=== PATIENT | male | born 1935 | race Caucasian/White ===

== ENCOUNTER → 2019-12-19 16:27 | Outpatient (BNVA) | payer MEDICARE, BC, SELFPAY | PROVIDERS: Visit Provider Nurse Practitioner | DX: J02.9 Acute pharyngitis, unspecified (principal) | CPT/HCPCS: 87081; 87880 ==

== ENCOUNTER 2020-04-16 15:21 | Outpatient (CLI) | payer MEDICARE, BC, SELFPAY ==
--- NOTE | 2020-04-16 | USCV_ITS ---
Brianne Gallardo Age: 84 Gender: M : 1935 Exam Date: 04/16/2020 15:47 Ordering Phys: Robert Gerber MD Technologist: Axel Marinelli [place] [facility] [place]: MUR[place]UR BP: 147 / 82 HR: 41 Rhythm: Sinus Technical Quality: Fair MEASUREMENTS (Male / Female) Normal Values 2D ECHO LV Diastolic Diameter PLAX 4.0 cm 4.2 - 5.9 / 3.9 - 5.3 cm LV Systolic Diameter PLAX 3.0 cm IVS Diastolic Thickness 1.3 cm 0.6 - 1.0 / 0.6 - 0.9 cm IVS Systolic Thickness 1.2 cm LVPW Diastolic Thickness 1.3 cm 0.6 - 1.0 / 0.6 - 0.9 cm LVPW Systolic Thickness 1.3 cm LVOT Diameter 2.1 cm LV Ejection Fraction 2D Teich 49.2 % LV Ejection Fraction MOD 2C 68.0 % LV Ejection Fraction 2C AL 69.4 % LA Diameter 5.6 cm LA Width 4.2 cm LA Height 5.8 cm RA Width 5.1 cm RA Height 5.0 cm Aorta at Sinotubular Diameter 3.0 cm M-MODE LV Diastolic Diameter MM 4.7 cm 4.2 - 5.9 / 3.9 - 5.3 cm LV Systolic Diameter MM 3.3 cm LV Ejection Fraction MM Teich 56.4 % IVS Diastolic Thickness MM 0.9 cm 0.6 - 1.0 / 0.6 - 0.9 cm IVS Systolic Thickness MM 1.2 cm LVPW Diastolic Thickness MM 1.3 cm 0.6 - 1.0 / 0.6 - 0.9 cm LVPW Systolic Thickness MM 1.7 cm RV Diastolic Diameter MM 1.3 cm Aortic Annulus Diameter 4.4 cm LA Ao Ratio MM 1.3 MV E Point Septal Separation 1.1 cm DOPPLER AV Peak Velocity 174.0 cm/s LVOT Peak Velocity 77.0 cm/s AV Area Cont Eq vti 1.2 cm squared AV Area Cont Eq pk 1.5 cm squared MV Area PHT 5.1 cm squared Mitral E to A Ratio 1.6 MV E' Velocity 2.0 cm/s Mitral E to MV E' Ratio 21.3 Mitral E to LV E' Lateral Ratio 31.9 Mitral E to LV E' Septal Ratio 16.0 TR Peak Velocity 144.0 cm/s TR Peak Gradient 8.2 mmHg TV Peak E Velocity 104.0 cm/s Right Atrial Pressure 3.0 mmHg Pulmonary Artery Systolic Pressu 11.3 mmHg FINDINGS Left Ventricle Normal left ventricular cavity size. Mild left ventricular hypertrophy. Normal left ventricular systolic function. No regional wall motion abnormalities. Grade II/IV diastolic dysfunction, moderately elevated filling pressures. Left ventricular ejection fraction is estimated at 60 %. Right Ventricle Normal right ventricular size and systolic function. Normal right ventricular systolic pressure. Right Atrium Moderately increased right atrial size. Left Atrium Moderately increased left atrial size. Mitral Valve Structurally normal mitral valve. Mitral annular calcification. Mild mitral valve regurgitation. Aortic Valve Structurally normal trileaflet aortic valve. Mild aortic valve calcification. Mild aortic valve regurgitation. Mild aortic valve stenosis, mean gradient 4.6 mmHg, EVY 1.2 cm squared. Tricuspid Valve Structurally normal tricuspid valve. Trace tricuspid valve regurgitation. Pulmonic Valve Pulmonic valve not well visualized. [id number] pulmonary valve regurgitation. Pericardium Normal pericardium without effusion. Aorta Normal ascending aorta dimension. CONCLUSIONS Normal left ventricular cavity size. Mild left ventricular hypertrophy. Normal left ventricular systolic function. No regional wall motion abnormalities. Grade II/IV diastolic dysfunction, moderately elevated filling pressures. Left ventricular ejection fraction is estimated at 60 %. Moderately increased right atrial size. Moderately increased left atrial size. Structurally normal mitral valve. Mitral annular calcification. Mild mitral valve regurgitation. Structurally normal trileaflet aortic valve. Mild aortic valve calcification. Mild aortic valve regurgitation. Mild aortic valve stenosis, mean gradient 4.6 mmHg, EVY 1.2 cm squared. There are no prior echocardiogram studies to compare. Dr. Doug Woodard MD (Electronically Signed) Final Date: 17 April 2020 10:16 S
== END 2020-04-16 15:22 | disposition home or self-care (01) ==
PROVIDERS: Visit Provider Family Medicine
DX: R07.9 Chest pain, unspecified (principal); R01.1 Cardiac murmur, unspecified; I08.0 Rheumatic disorders of both mitral and aortic valves
CPT/HCPCS: 93306

== ENCOUNTER 2020-05-31 14:25 | Outpatient (CLI) | payer MEDICARE, BC, SELFPAY ==
--- NOTE | 2020-05-31 14:35 | XR_ITS ---
WS: [id number] CHEST 2 VIEWS HISTORY: FEVER, COUGH COMPARISON: None available. Lungs: Eventration of the LEFT hemidiaphragm. No pneumonia. LEFT lower lobe granuloma. Normal vascula ture. No pleural effusion or pneumothorax. Cardiac size: Normal. Mediastinum/Aorta: Mild atherosclerosis aorta. Bones: Osteopenia. XR/XR chest 2V* [id number] IMPRESSION: Ectatic thoracic aorta. No acute cardiopulmonary disease.
== END 2020-05-31 14:26 | disposition home or self-care (01) ==
LOC: RADWPI 14:30
PROVIDERS: PCP Family Medicine; Visit Provider Family Medicine
DX: R50.9 Fever, unspecified (principal); R05 Cough; I77.810 Thoracic aortic ectasia
CPT/HCPCS: 71046

== ENCOUNTER 2020-06-08 12:20 | Inpatient (IN) | payer MEDICARE, BC, SELFPAY ==
[2020-06-08] VITALS (24 sets, daily range): BP systolic 117–168; BP diastolic 64–90; PULSE 51–70; RESP 16–28; TEMP 37.1; O2SAT 79–100; BMI 29.5; BMI 29.7
--- NOTE | 2020-06-08 12:36 | W.ED.SOB ---
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 Pt states he was tested for covid last week and was told he was positive as [facility]. When we called to verify they had no record of the patient being there. He states he tabatha here for a doctors appointment. The patieints dropped him off at the Er and left. WE have not been able to contact her. She had told the staff at the entrance she had symptoms too. On arrival the pt had RA sat of 70s - improved to the mid 90s with o2 at 2 lpm. Pt reports antwan had a non-productive cough and mild diarrhea, no GI blood loss. cough had been non-productive. MD elicited complaint: shortness of breath and cough Onset (ago): day(s) Context: occurred during exertion Timing: constant Severity: moderate Exacerbating factors: exertion and coughing Relieving factors: oxygen and rest Associated symptoms: Reports chest congestion and cough; Deny abdominal pain, chest pain, diaphoresis, dizziness, extremity pain, fever(s), hemoptysis, lightheadedness, myalgias, nausea, orthopnea, palpitations, paresthesias, polydipsia, polyuria, rash, sense of impending doom, syncope, vomiting or other Treatment prior to arrival: none Review of Systems Const: Denies: fever(s) or diaphoresis ENMT: Denies: throat pain, ear or mastoid pain, nasal discharge or nasal congestion Card: Denies: chest pain, palpitations, lightheadedness, syncope or orthopnea Resp: Reports: chest congestion; Denies: hemoptysis GI: Denies: abdominal pain, nausea or vomiting : Denies: flank pain, dysuria, urinary frequency or urinary urgency Musc: Denies: extremity pain Skin/Breast: Denies: rash or pruritus Neuro: Denies: dizziness Endo: Denies: polyuria or polydipsia PFSH ED PFSH: Medical History Diastolic heart failure HLD (hyperlipidemia) HTN (hypertension) Prostate cancer Surgical History H/O hernia repair H/O lithotripsy H/O prostatectomy Family History Denies family history of CAD (coronary artery disease) Cancer Social History Quit status (tobacco): has quit using tobacco Year quit tobacco: 2019 Alcohol intake: never Substance/Drug Use: never Household members: spouse Housing: House Marital status: Physical Exam Const: COMMON NORMALS: no acute distress GENERAL APPEARANCE: cooperative and comfortable ORIENTATION/CONSCIOUSNESS: Yes awake, Yes oriented to person, Yes oriented to place and Yes oriented to time HENMT: COMMON NORMALS: normocephalic, atraumatic and hearing grossly normal bilaterally HEAD & SCALP: normocephalic and atraumatic Eye: COMMON NORMALS: Equal, round and reactive pupils present, EOMs intact bilaterally, conjunctivae normal and no scleral icterus CONJUNCTIVA: Yes conjunctivae normal PUPIL: Yes Equal, round and reactive pupils present Neck/C-Spine: COMMON NORMALS: full ROM, no lymphadenopathy, supple and no JVD Lymph: LYMPHATIC: no lymphadenopathy noted and no lymphedema noted Resp: AUSCULTATION: wheezes expiratory wheezes and throughout Cardio: COMMON NORMALS: no JVD, regular rate, regular rhythm and No murmurs present (Cardio) RATE: regular rate RHYTHM: regular rhythm GI: COMMON NORMALS: Soft to palpation and No hepatosplenomegaly present AUSCULTATION: Yes normoactive bowel sounds PALPATION: Yes Soft to palpation, No Tenderness to palpation present (GI), No Guarding due to palpation present (GI) and Yes No hepatosplenomegaly present Extremity: COMMON NORMALS: normal to inspection, capillary refill normal, no clubbing, cyanosis or edema, no calf tenderness and no pedal edema Neuro: SENSORIUM/ORIENTATION: Yes oriented to person, Yes oriented to place and Yes oriented to time Skin: COMMON NORMALS: no rashes or lesions noted GENERAL SKIN EXAM: no rashes or lesions noted Course Vital Signs: Vital signs: Vital Signs Temperature 98.5 F 06/10/20 04:00 Pulse Rate 62 06/10/20 06:00 Respiratory Rate 19 H 06/10/20 06:00 Blood Pressure 140/83 06/10/20 06:00 Pulse Oximetry 97 06/10/20 06:00 MDM - SOB/Dyspnea MDM Narrative: Medical decision making narrative: Discussed with Dr. Smart will admit to the viral ICU for oxygen support and monitoring. Lab Data: Labs: Lab Results 06/08/20 06/08/20 06/08/20 Range/Units 12:40 12:40 12:40 WBC 6.3 (4.0-10.0) 10^3/ uL RBC 4.44 (4.1-5.3) 10^6/u L Hgb 13.0 (11.7-16.6) g/dL Hct 39.4 L (42.0-52.0) % MCV 88.7 (80-94) fL MCH 29.3 (28.0-34.0) pg MCHC 33.0 (30.0-36.0) g/dL RDW 13.2 (12.1-15.1) % Plt Count 149 (130-400) 10^3/c mm MPV 11.0 H (7.4-10.4) fL Neut % (Auto) 58.5 % Lymph % (Auto) 29.0 % [place] % (Auto) 11.1 % Eos % (Auto) 0.8 % Baso % (Auto) 0.3 % Neut # (Auto) 3.69 (1.8-7.7) 10^3/u L Lymph # (Auto) 1.8 (0.8-4.8) 10^3/u L [place] # (Auto) 0.7 (0.2-0.9) 10^3/u L Eos # (Auto) 0.1 (0.0-0.8) 10^3/u L Baso # (Auto) 0.0 (0.0-0.1) 10^3/u L Nucleated RBC % (a uto) 0 % Nucleated RBCs # 0.0 /100WBC PT 12.60 (12.1-14.9) SECO NDS INR 0.92 (0.8-1.2) APTT 29.0 (23.9-36.7) SECO NDS Fibrinogen 582 H (174-498) mg/dL D-Dimer 1.14 H (0-0.59) ug/mIFE U Specimen Type Sample Site ABG pH (7.35-7.45) ABG pCO2 (35-45) mmHg ABG pO2 (80.0-100.0) mmH g ABG HCO3 (22-26) mmol/L ABG Base Excess (-2.0-2.0) mmol/ L Russell Test Hematocrit (42-52) % O2 Delivery Device O2 Liters/Min % FiO2 % Chief Engineering Division ID Sodium 139 (136-145) mmol/L Potassium 4.0 (3.5-5.1) mmol/L Chloride 102 (98-107) mmol/L Carbon Dioxide 22 (22-29) mmol/L Anion Gap 19.0 (5-19) BUN 16 (8-23) mg/dL Creatinine 0.8 (0.7-1.2) mg/dL GFR Calculation Not Reportable Glucose 105 (65-115) mg/dL Calculated Osmolal ity 285 (285-295) mOsm/k g Lactic Acid (0.5-2.2) mmol/L Calcium 8.4 L (8.5-10.5) mg/dL Magnesium 2.0 (1.7-2.3) mg/dL Total Bilirubin 0.4 (0.15-1.2) mg/dL AST 64 H (0-40) U/L ALT 80 H (0-41) U/L Alkaline Phosphata se 110 (40-130) IU/L Lactate Dehydrogen ase 276 H (135-225) U/L Creatine Kinase 58 (39-308) U/L C-Reactive Protein 66.5 H (0.0-4.9) mg/L NT-Pro-B Natriuret Pep (0-450) pg/mL Total Protein 7.0 (6.6-8.7) g/dL Albumin 4.0 (3.5-5.2) g/dL Globulin 3.0 (1.3-4.6) g/dL Procalcitonin 0.08 (0-0.5) ng/mL TSH (0.27-4.20) uIU/ mL Influenza Type A A g (Negative) Influenza Type B A g (Negative) 06/08/20 06/08/20 06/08/20 Range/Units 12:40 12:40 12:40 WBC (4.0-10.0) 10^3/ uL RBC (4.1-5.3) 10^6/u L Hgb (11.7-16.6) g/dL Hct (42.0-52.0) % MCV (80-94) fL MCH (28.0-34.0) pg MCHC (30.0-36.0) g/dL RDW (12.1-15.1) % Plt Count (130-400) 10^3/c mm MPV (7.4-10.4) fL Neut % (Auto) % Lymph % (Auto) % [place] % (Auto) % Eos % (Auto) % Baso % (Auto) % Neut # (Auto) (1.8-7.7) 10^3/u L Lymph # (Auto) (0.8-4.8) 10^3/u L [place] # (Auto) (0.2-0.9) 10^3/u L Eos # (Auto) (0.0-0.8) 10^3/u L Baso # (Auto) (0.0-0.1) 10^3/u L Nucleated RBC % (a uto) % Nucleated RBCs # /100WBC PT (12.1-14.9) SECO NDS INR (0.8-1.2) APTT (23.9-36.7) SECO NDS Fibrinogen (174-498) mg/dL D-Dimer (0-0.59) ug/mIFE U Specimen Type Sample Site ABG pH (7.35-7.45) ABG pCO2 (35-45) mmHg ABG pO2 (80.0-100.0) mmH g ABG HCO3 (22-26) mmol/L ABG Base Excess (-2.0-2.0) mmol/ L Russell Test Hematocrit (42-52) % O2 Delivery Device O2 Liters/Min % FiO2 % Chief Engineering Division ID Sodium (136-145) mmol/L Potassium (3.5-5.1) mmol/L Chloride (98-107) mmol/L Carbon Dioxide (22-29) mmol/L Anion Gap (5-19) BUN (8-23) mg/dL Creatinine (0.7-1.2) mg/dL GFR Calculation Glucose (65-115) mg/dL Calculated Osmolal ity (285-295) mOsm/k g Lactic Acid 0.9 (0.5-2.2) mmol/L Calcium (8.5-10.5) mg/dL Magnesium (1.7-2.3) mg/dL Total Bilirubin (0.15-1.2) mg/dL AST (0-40) U/L ALT (0-41) U/L Alkaline Phosphata se (40-130) IU/L Lactate Dehydrogen ase (135-225) U/L Creatine Kinase (39-308) U/L C-Reactive Protein (0.0-4.9) mg/L NT-Pro-B Natriuret Pep 764 H (0-450) pg/mL Total Protein (6.6-8.7) g/dL Albumin (3.5-5.2) g/dL Globulin (1.3-4.6) g/dL Procalcitonin (0-0.5) ng/mL TSH 1.37 (0.27-4.20) uIU/ mL Influenza Type A A g (Negative) Influenza Type B A g (Negative) 06/08/20 06/08/20 Range/Units 13:03 13:27 WBC (4.0-10.0) 10^3/ uL RBC (4.1-5.3) 10^6/u L Hgb (11.7-16.6) g/dL Hct (42.0-52.0) % MCV (80-94) fL MCH (28.0-34.0) pg MCHC (30.0-36.0) g/dL RDW (12.1-15.1) % Plt Count (130-400) 10^3/c mm MPV (7.4-10.4) fL Neut % (Auto) % Lymph % (Auto) % [place] % (Auto) % Eos % (Auto) % Baso % (Auto) % Neut # (Auto) (1.8-7.7) 10^3/u L Lymph # (Auto) (0.8-4.8) 10^3/u L [place] # (Auto) (0.2-0.9) 10^3/u L Eos # (Auto) (0.0-0.8) 10^3/u L Baso # (Auto) (0.0-0.1) 10^3/u L Nucleated RBC % (a uto) % Nucleated RBCs # /100WBC PT (12.1-14.9) SECO NDS INR (0.8-1.2) APTT (23.9-36.7) SECO NDS Fibrinogen (174-498) mg/dL D-Dimer (0-0.59) ug/mIFE U Specimen Type Arterial Sample Site Radial, left ABG pH 7.42 (7.35-7.45) ABG pCO2 38.7 (35-45) mmHg ABG pO2 93.8 (80.0-100.0) mmH g ABG HCO3 25.0 (22-26) mmol/L ABG Base Excess 0.6 (-2.0-2.0) mmol/ L Russell Test Pos Hematocrit 38.9 L (42-52) % O2 Delivery Device Nc O2 Liters/Min 1.0 % FiO2 24.0 % Chief Engineering Division ID Amh Sodium (136-145) mmol/L Potassium (3.5-5.1) mmol/L Chloride (98-107) mmol/L Carbon Dioxide (22-29) mmol/L Anion Gap (5-19) BUN (8-23) mg/dL Creatinine (0.7-1.2) mg/dL GFR Calculation Glucose (65-115) mg/dL Calculated Osmolal ity (285-295) mOsm/k g Lactic Acid (0.5-2.2) mmol/L Calcium (8.5-10.5) mg/dL Magnesium (1.7-2.3) mg/dL Total Bilirubin (0.15-1.2) mg/dL AST (0-40) U/L ALT (0-41) U/L Alkaline Phosphata se (40-130) IU/L Lactate Dehydrogen ase (135-225) U/L Creatine Kinase (39-308) U/L C-Reactive Protein (0.0-4.9) mg/L NT-Pro-B Natriuret Pep (0-450) pg/mL Total Protein (6.6-8.7) g/dL Albumin (3.5-5.2) g/dL Globulin (1.3-4.6) g/dL Procalcitonin (0-0.5) ng/mL TSH (0.27-4.20) uIU/ mL Influenza Type A A g Negative (Negative) Influenza Type B A g Negative (Negative) Discharge Plan Discharge Patient Disposition: Admitted As Inpatient Admit Provider: Adan Edmond Clinical Impression: Pneumonia due to COVID-19 virus, Acute respiratory failure with hypoxia, HTN (hypertension) Condition: Stable Interventions: ED Discharge Assessment Last Done: 06/08/20 14:42 ED Charges Last Done: 06/08/20 14:42 Discharge Date/Time: 06/08/20 14:42 Coding Level of Care Code ED Biology Manager for Ada Ponce
--- NOTE | 2020-06-08 12:50 | ECG_ITS ---
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 Measurements Intervals [place] Rate: 62 P: 3 OH: 156 QRS: -10 QRSD: 102 T: -9 QT: 415 QTc: 423 Interpretive Statements SINUS RHYTHM MODERATE VOLTAGE CRITERIA FOR LVH, CONSIDER NORMAL VARIANT [MEETS CRITERIA IN ONE OF: R(aVL), S(V1), R(V5), R(V5/V6)+S(V1)] NONSPECIFIC T-WAVE ABNORMALITY No previous ECG available for comparison Electronically Signed On 06-08-2020 20:39:02 CDT by Shawanda Bliar M.D. [email or web address]
--- NOTE | 2020-06-08 12:50 | XRR_ITS ---
PROCEDURE INFORMATION: Exam: XR Chest, 1 View Exam date and time: 06/08/2020 1:09 PM Age: 84 years old Clinical indication: Cough and dyspnea; Patient HX: Covid; Additional info: Dyspnea/cough TECHNIQUE: Imaging protocol: XR of the chest Views: 1 view. COMPARISON: CR XR chest 2V* [id number] 05/31/2020 2:39 PM FINDINGS: Lungs: Low lung volumes seen. The lungs are otherwise clear No consolidation. Pleural space: Unremarkable. No pleural effusion. No pneumothorax. Heart/Mediastinum: Unremarkable. No cardiomegaly. Bones/joints: Unremarkable. Other findings: Similar findings are seen comparing to prior examination. XR/XR chest 1V portable [id number] IMPRESSION: 1. No acute findings. 2. Low lung volumes
[2020-06-08 13:13] LABS: Basophils % 0.3 %; Eosinophils # 0.1 10^3/uL (0.0-0.8); Eosinophils % 0.8 %; Hematocrit 39.4 % (42.0-52.0); Lymphocytes # 1.8 10^3/uL (0.8-4.8); Mean Corpuscular Hemoglobin 29.3 pg (28.0-34.0); Mean Corpuscular Volume 88.7 fL (80-94); Monocytes # 0.7 10^3/uL (0.2-0.9); Monocytes % 11.1 %; Neutrophils # 3.69 10^3/uL (1.8-7.7); Neutrophils % 58.5 %; Nucleated Red Blood Cells % 0 %; Platelet Count 149 10^3/cmm (130-400); Red Blood Count 4.44 10^6/uL (4.1-5.3); Red Cell Distribution Width 13.2 % (12.1-15.1); White Blood Count 6.3 10^3/uL (4.0-10.0)
[2020-06-08 13:18] LABS: INR 0.92 (0.8-1.2)
[2020-06-08 13:19] LABS: Fibrinogen 582 mg/dL (174-498)
[2020-06-08 13:22] LABS: D Dimer 1.14 ug/mIFEU (0-0.59); Lactic Sepsis W/Reflex 0.9 mmol/L (0.5-2.2)
--- NOTE | 2020-06-08 13:28 | CT_ITS ---
WS: [id number] CT CHEST ANGIOGRAPHY WITH REFORMATS HISTORY: Dyspnea, covid TECHNIQUE: Contiguous axial images are obtained through the chest during arterial injection of intrav enous contrast. Images are reconstructed to evaluate the pulmonary arteries. MIP imaging also reviewe d. All CT scans at [facility] use at least one of these dose optimization techniques: aut omated exposure control; mA and/or kV adjustment per patient size (includes targeted exams where dose is matched to clinical indication); or iterative reconstruction. CONTRAST: Omnipaque 350; 95 mL IV. DLP: 564.13 mGy.cm COMPARISON: None available. No pulmonary embolism. Pulmonary artery size is. Atherosclerosis aorta. Moderate enlargement of the L EFT heart chambers. No pericardial or pleural effusion. Subpleural opacification along the posterior RIGHT upper and lower lobes. Slightly more than groundglass attenuation. No effusions. Indeterminate 13 mm subcarinal lymph node. Hypodensities in the liver are probably cysts. Cannot characterize these further due to their small s ize and phase of enhancement. No adrenal mass. LEFT extrarenal pelvis. No destructive bone lesions. CT/CT angio chest PE protcl [id number] IMPRESSION: 1. No pulmonary embolism. 2. Moderate LEFT heart enlargement. 3. Subpleural opacification in the posterior RIGHT upper and RIGHT lower lobes .
[2020-06-08 13:31] LABS: Procalcitonin 0.08 ng/mL (0-0.5)
[2020-06-08 13:39] LABS: ABG PCO2 38.7 mmHg (35-45); ABG PH Result 7.42 (7.35-7.45); Arterial Blood Gas Hematocrit 38.9 % (42-52); Base Excess ABG 0.6 mmol/L (-2.0-2.0); Blood Gas Allen Test Pos; Blood Gas Operator Identificat AMH; Blood Gas Sample Site Radial, left; Blood Gas Sample Type Arterial; Oxygen Device NC; PO2 ABG 93.8 mmHg (80.0-100.0)
[2020-06-08 13:43] LABS: Alanine Aminotransferase 80 U/L (0-41); Alkaline Phosphatase 110 IU/L (40-130); Aspartate Amino Transferase 64 U/L (0-40); Blood Urea Nitrogen 16 mg/dL (8-23); C Reactive Protein 66.5 mg/L (0.0-4.9); Calcium 8.4 mg/dL (8.5-10.5); Carbon Dioxide 22 mmol/L (22-29); Chloride 102 mmol/L (98-107); Creatine Phosphokinase 58 U/L (39-308); Glucose 105 mg/dL (65-115); Lactate Dehydrogenase 276 U/L (135-225); Osmolality Calculated 285 mOsm/kg (285-295); Sodium 139 mmol/L (136-145); Total Bilirubin 0.4 mg/dL (0.15-1.2)
[2020-06-08 14:00] LABS: Influenza A by IFA Negative (Negative); Influenza B by IFA Negative (Negative)
[2020-06-08] MEDS: dexamethasone 10 mg/mL INJ 6 MG IM (14:00)
[2020-06-08] MEDS: iohexol 350 mg/mL 100 mL Btl IV (14:32)
[2020-06-08 14:49] LABS: Thyroid Stimulating Hormone 1.37 uIU/mL (0.27-4.20)
--- NOTE | 2020-06-08 14:55 | P.HP_ITS ---
Providers/Chief Complaint Admitting Physician: Adan Edmond MD Primary Care Provider: Fabiano Woo MD Chief Complaint: covid positive History of Present Illness Brianne Gallardo is a 84 year old male, chronic smoker with past medical history of hypertension, hyperlipidemia, prostate cancer post prostatectomy who presented today from his PCPs office to the ER for extreme weakness. As per the history patient was tested for COVID-19 on May 31 which came back positive. Prior to May 31 patient has been having cough, shortness of breath, weakness, runny nose, flulike symptoms for 5 days for which he has been on Augmentin without any relief. His symptoms continue to worsen since then along with difficulty to get out of bed today for which he went to his primary care's office. Patient is also complaining of 2-3 episodes of diarrhea for last 2 days. Bowel movements are foul-smelling but not bloodstained black in color. He denies of having any chest pain, dizziness, palpitation, fall, dysuria, nausea, vomiting. States his appetite is okay. He also states his sense of smell and taste are intact at present. He lives with his who is not having any symptoms but is been tested for COVID-19 today. Review of Systems General: Reports: 10 or more systems reviewed and unremarkable except in HPI and below Const: Denies: fever(s), chills, body aches, change in appetite, change in weight, malaise, night sweats, diaphoresis, change in sleep pattern, daytime sleepiness or snoring Eyes: Denies: change in vision, blurry vision, photophobia, eye discomfort or eye discharge ENMT: Denies: throat pain, enlarged tonsils, hoarseness, mouth pain, oral sores, dry mouth, tinnitus, nasal congestion or post nasal drip Card: Denies: chest pain, palpitations, irregular heart rhythm, edema, swelling of feet/ankles, lightheadedness, syncope, pre-syncope, dyspnea on exertion, orthopnea, leg pain with exertion or acrocyanosis Resp: Denies: dyspnea, productive cough, non-productive cough, wheezing, stridor, pain on inspiration, change in phlegm color, hemoptysis or chest congestion GI: Denies: abdominal pain, nausea, vomiting, hematemesis, coffee ground emesis, dysphagia, heartburn, diarrhea, constipation, bloating, GI cramping, change in bowel habits, pain on defecation, hematochezia or melena : Denies: flank pain, difficulty urinating, dysuria, urinary frequency, uri nary urgency, urinary hesitancy, urinary dribbling, difficulty starting urination, change in urine stream, nocturia or hematuria Musc: Denies: neck pain, back pain, extremity pain, joint pain, joint swelling, joint redness, joint stiffness or limited range of motion Neuro: Denies: headache(s), numbness in extremities, weakness in extremities, sensory changes, lack of coordination, difficulty walking, frequent falls, dizziness, vertigo, confusion, Slurred speech present, difficulty communicating thoughts or seizure-like activity Psych: Denies: anxiety, depression, mood swings, panic attacks, hopelessness or irritability Endo: Denies: polyuria, polydipsia, tired all the time, cold intolerance, excessive sweating, flushing or heat intolerance Mohan/Lymph: Denies: easy bruising or easy bleeding All/Imm: Denies: tongue swelling, facial swelling or acute wheezing Medications/Allergies Home Medications Medication Instructions Recorded Confirmed Last Taken Type celecoxib 200 mg capsule 200 mg PO BID 12/19/19 06/08/20 Unknown History hydrocodone 5 mg-acetaminophen 325 1 tab PO Q4H PRN 12/19/19 06/08/20 Unknown History mg tablet lovastatin 40 mg tablet 40 mg PO DAILY 12/19/19 06/08/20 Unknown History metoprolol tartrate 50 mg tablet See Rx Instructions PO BID tab 12/19/19 Unknown History primidone 50 mg PO BID 12/19/19 06/08/20 Unknown History Allergies Allergy/AdvReac Type Severity Reaction Status Date / Time No Known Allergies Allergy Verified 06/08/20 12:43 PFSH Acute PFSH: Medical History (Updated 06/08/20 @ 15:09 by Adan Edmond MD) HLD (hyperlipidemia) HTN (hypertension) Prostate cancer Surgical History (Updated 06/08/20 @ 15:00 by Adan Edmond MD) H/O hernia repair H/O lithotripsy H/O prostatectomy Family History (Updated 06/08/20 @ 15:07 by Adan Edmond MD) Denies family history of CAD (coronary artery disease) Cancer Social History (Updated 06/08/20 @ 15:08 by Adan Edmond MD) Quit status (tobacco): has quit using tobacco Year quit tobacco: 2019 Alcohol intake: never Substance/Drug Use: never Household members: spouse Housing: House Marital status: Vitals/I&O/Wt Last Vital Signs Temp 98.8 F 06/08/20 12:35 Pulse 62 06/08/20 14:42 Resp 20 H 06/08/20 14:42 BP 162/89 06/08/20 14:42 Pulse Ox 100 06/08/20 14:42 Weight last 48 hrs Weight 88.904 kg Weight 87.997 kg Physical Exam Narrative: EXAM NARRATIVE: General: No acute distress, AO x3 HEENT: PERRLA, pupils bilaterally equal and reactive Chest: Normal vesicular breath sounds, no added sounds, equal good air entry bilaterally CVS: S1-S2 regular, no murmurs, no tachycardia, no gallops, no rubs Abdomen: Soft, nontender, no organomegaly, bowel sounds present Neuro: No focal deficits, no facial deformity, AO x3, power 5/5 in all limbs Data : 06/08/20 12:40 06/08/20 12:40 Micro: Microbiology 06/08/20 12:40 Blood Culture - Preliminary Blood SPECIMEN COLLECTED 06/08/20 12:35 Blood Culture - Preliminary Blood SPECIMEN COLLECTED A&P Assessment and plan (1) Pneumonia due to COVID-19 virus: Status: Acute (2) HLD (hyperlipidemia): Status: Acute (3) HTN (hypertension): Status: Acute (4) Diarrhea: Status: Acute (5) Acute respiratory failure with hypoxia: Status: Acute Additional A&P Information COVID-19 pneumonia: At present patient is requiring 3 L nasal cannula supplementation to keep saturation over 90%. Patient having at least moderate COVID-19 pneumonia. Start patient on dexamethasone 6 mg IV daily. Start patient on Remdesevir for 5 days. We will start patient on Advair, Spiriva. Start patient on zinc, vitamin C. Patient's d-dimer is elevated so will start on Eliquis 5 mg twice daily. Check CTA PE protocol to determine for how long Eliquis will be required. We will continue to monitor inflammatory markers daily including CRP, ferritin, LDH, d-dimer. Check procalcitonin, sputum culture, blood cultures, lactate. For now we will start patient on levofloxacin 500 mg oral daily. Tessalon Perles as needed. Daily EKGs to check for QTC. Hypertension: Goal blood pressure less than 140/90 mmHg. Continue with home dose of metoprolol. We will look for bradycardia. Diarrhea: Check enteric panel in 3 days. Patient has been on Augmentin recently. For now we will continue with IV hydration as above. No Lomotil for now. Continue chronic medications like hydrocodone, primidone, lovastatin. CODE STATUS: Discussed in detail with patient regarding his wishes for goals of care. He states for now he would want to be full code and would want chest compressions and intubation if required. Discussed the treatment plan and options with him in detail. Also discussed if he continues to require more oxygen supplementation to keep saturation within normal limits he might even require plasma treatment which unfortunately cannot be done at [facility] and for which she will be transferred to a higher center. He is agreeable to same. For now we will continue treatment with antiviral medication. Kendra will also help with DVT prophylaxis. Oral Protonix for PUD prophylaxis. Cardiac diet. Normal saline at 50 cc/h. Out of bed to chair. Incentive spirometry. Attestations Medical Necessity Statement*: COVID-19 pneumonia, acute hypoxic respiratory failure Time Spent in Patient Care: Greater than 35 minutes (>than 50% of time spe nt in counselling and/or direct pt care on unit) . Coding Level of Care Code Acute [employer] for [facility] Fwd Diagnoses Pneumonia due to COVID-19 virus U07.1; J12.89 HLD (hyperlipidemia) E78.5 HTN (hypertension) I10 Diarrhea R19.7 Acute respiratory failure with hypoxia J96.01
[2020-06-08 15:29] LABS: NT Pro B Type Natriuretic Pept 764 pg/mL (0-450)
[2020-06-08] MEDS: sodium chloride 0.9% 1,000 ML 50 ML IV (15:44)
[2020-06-08] MEDS: levoFLOXacin 500 mg Tablet PO (16:04)
[2020-06-08] MEDS: benzonatate 100 mg Capsule PO (16:04)
[2020-06-08] MEDS: apixaban 5 mg Tablet PO (17:41)
[2020-06-08] MEDS: CELEcoxib 200 mg Capsule PO (17:41)
[2020-06-08] MEDS: ascorbic acid 500 mg Tablet PO (17:41)
[2020-06-08] MEDS: metoprolol tartrate 25 mg Tablet PO (17:41)
[2020-06-08] MEDS: primidone 50 mg Tablet PO (17:42)
[2020-06-09] VITALS (25 sets, daily range): BP systolic 119–218; BP diastolic 60–102; PULSE 42–85; RESP 15–25; TEMP 36.6–37.2; O2SAT 92–96
[2020-06-09 05:56] LABS: Basophils % 0.3 %; Hematocrit 35.4 % (42.0-52.0); Hemoglobin 11.3 g/dL (11.7-16.6); Lymphocytes # 1.2 10^3/uL (0.8-4.8); Lymphocytes % 33.7 %; Mean Corpuscular HGB Conc 31.9 g/dL (30.0-36.0); Mean Corpuscular Hemoglobin 28.5 pg (28.0-34.0); Mean Corpuscular Volume 89.4 fL (80-94); Mean Platelet Volume 11.4 fL (7.4-10.4); Monocytes # 0.4 10^3/uL (0.2-0.9); Monocytes % 12.5 %; Neutrophils # 1.83 10^3/uL (1.8-7.7); Neutrophils % 53.2 %; Nucleated Red Blood Cells % 0 %; Platelet Count 141 10^3/cmm (130-400); Red Blood Count 3.96 10^6/uL (4.1-5.3); Red Cell Distribution Width 13.2 % (12.1-15.1); White Blood Count 3.4 10^3/uL (4.0-10.0)
[2020-06-09 06:16] LABS: ABG PCO2 42.6 mmHg (35-45); ABG PH Result 7.38 (7.35-7.45); Base Excess ABG 0.2 mmol/L (-2.0-2.0); Blood Gas Allen Test positive; HCO3 ABG 25.5 mmol/L (22-26); Oxygen Device RA; PO2 ABG 67.5 mmHg (80.0-100.0)
[2020-06-09 06:17] LABS: Arterial Blood Gas Hematocrit 40.3 % (42-52); Blood Gas Sample Site LEFT RADIAL; Blood Gas Sample Type ARTERIAL
[2020-06-09 06:22] LABS: Alanine Aminotransferase 83 U/L (0-41); Albumin Level 3.5 g/dL (3.5-5.2); Alkaline Phosphatase 100 IU/L (40-130); Anion Gap 18.7 (5-19); Aspartate Amino Transferase 63 U/L (0-40); Blood Urea Nitrogen 20 mg/dL (8-23); C Reactive Protein 72.2 mg/L (0.0-4.9); Calcium 8.2 mg/dL (8.5-10.5); Carbon Dioxide 21 mmol/L (22-29); Chloride 105 mmol/L (98-107); Creatine Phosphokinase 43 U/L (39-308); Globulin 2.7 g/dL (1.3-4.6); Glucose 109 mg/dL (65-115); Magnesium 2.1 mg/dL (1.7-2.3); Osmolality Calculated 289 mOsm/kg (285-295); Phosphorus 3.4 mg/dL (2.5-4.5); Potassium 3.7 mmol/L (3.5-5.1); Sodium 141 mmol/L (136-145); Total Bilirubin 0.3 mg/dL (0.15-1.2); Total Protein 6.2 g/dL (6.6-8.7)
[2020-06-09 06:33] LABS: Estmated Average Glucose 123; Hemoglobin A1C 5.9 % (4.0-6.0); Procalcitonin 0.04 ng/mL (0-0.5)
[2020-06-09 06:36] LABS: Fibrinogen 488 mg/dL (174-498)
[2020-06-09 06:39] LABS: D Dimer 0.71 ug/mIFEU (0-0.59)
[2020-06-09] MEDS: hyDRALAzine 20 mg/mL INJ 1 mL 10 MG IVP (06:40)
[2020-06-09 06:45] LABS: Chol HDL Ratio 3.33 mg/dL (1.0-5.00); Cholesterol 130 mg/dL (0-200); Ferritin 594 ng/mL (30-400); HDL Cholesterol 39 mg/dL (60-100); LDL Cholesterol Calculated 81 mg/dL (50-129); LDL HDL Ratio 2.08 RATIO (0.00-3.22); Lactate Dehydrogenase 243 U/L (135-225); Triglycerides 50 mg/dL (0-150)
--- NOTE | 2020-06-09 07:02 | PC.NURSE ---
Shift events: Patient admitted from ED with positive Covid test. Currently on Room air. Hypertensive early this morning; Hydralazine given and ordered every 4 hours. Alert and oriented x 4. Remained free of falls and injuries. All other VSS.
[2020-06-09] MEDS: metoprolol tartrate 25 mg Tablet PO (08:13)
[2020-06-09] MEDS: zinc gluconate 50 mg Tablet PO (09:08)
[2020-06-09] MEDS: levoFLOXacin 500 mg Tablet PO (09:08)
[2020-06-09] MEDS: primidone 50 mg Tablet PO ×2 (09:08→17:33)
[2020-06-09] MEDS: atorvastatin 40 mg Tablet 20 MG PO (09:09)
[2020-06-09] MEDS: dexamethasone 10 mg/mL INJ 6 MG IVP (09:09)
[2020-06-09] MEDS: CELEcoxib 200 mg Capsule PO ×2 (09:09→17:33)
[2020-06-09] MEDS: apixaban 5 mg Tablet PO ×2 (09:10→17:33)
[2020-06-09] MEDS: ascorbic acid 500 mg Tablet PO ×2 (09:10→17:33)
[2020-06-09] MEDS: benzonatate 100 mg Capsule PO ×3 (09:11→20:57)
--- NOTE | 2020-06-09 10:00 | ECG_ITS ---
[facility] ED Test Date: 2020-06-09 Pat Name: Brianne Gallardo Department: Room: ICU19 Gender: Male Vocational Training Teacher: : 1935 Requested By: Adan Edmond Order Number: [id number] Waleska MD: Shawanda Blair M.D. Measurements Intervals [place] Rate: 59 P: -57 [place]: 169 QRS: 244 QRSD: 105 T: 209 QT: 438 QTc: 437 Interpretive Statements SINUS BRADYCARDIA MARKED RIGHT AXIS DEVIATION [QRS AXIS > 100] POSSIBLE LEAD REVERSAL INCOMPLETE RIGHT BUNDLE BRANCH BLOCK SEPTAL MYOCARDIAL INFARCTION [40+ ms Q WAVE IN V1/V2], PROBABLY OLD MODERATE T-WAVE ABNORMALITY, CONSIDER LATERAL ISCHEMIA MODERATE T-WAVE ABNORMALITY, CONSIDER INFERIOR ISCHEMIA Compared to ECG 06/08/2020 12:34:32 Right-axis deviation now present Myocardial infarct finding now present Electronically Signed On 06-12-2020 13:38:11 CDT by Shawanda Balir M.D. [email or web address].Language [email or web address]/store/[id number]
[2020-06-09] MEDS: FUROsemide 20 mg Tablet PO (11:35)
[2020-06-09] MEDS: amlodipine 10 mg Tablet PO (11:35)
[2020-06-09] MEDS: sodium chloride 0.9% 1,000 ML 50 ML IV (11:38)
--- NOTE | 2020-06-09 13:21 | P.PN_ITS ---
Vitals/I&O/Wt Last Vital Signs Temp 98.5 F 06/09/20 12:00 Pulse 66 06/09/20 12:00 Resp 25 H 06/09/20 12:00 BP 199/97 06/09/20 12:00 Pulse Ox 94 06/09/20 12:00 06/08/20 06/09/20 06/09/20 22:59 06:59 14:59 Intake Total 250 / 250 200 / 450 1395 / 1395 Output Total 400 / 400 Balance -150 / -150 200 / 50 1395 / 1395 Weight last 48 hrs Weight 89.63 kg Weight 88.904 kg Weight 87.997 kg Physical Exam Narrative: EXAM NARRATIVE: General: No acute distress, AO x3 HEENT: PERRLA, pupils bilaterally equal and reactive Chest: Normal vesicular breath sounds, no added sounds, equal good air entry bilaterally CVS: S1-S2 regular, no murmurs, no tachycardia, no gallops, no rubs Abdomen: Soft, nontender, no organomegaly, bowel sounds present Neuro: No focal deficits, no facial deformity, AO x3, power 5/5 in all limbs Data : 06/09/20 04:15 06/09/20 04:15 Micro: Microbiology 06/08/20 12:40 Blood Culture - Preliminary Blood NEGATIVE TO DATE 06/08/20 12:35 Blood Culture - Preliminary Blood NEGATIVE TO DATE 06/08/20 14:50 MRSA Culture - Final Nose A&P Assessment and plan (1) Pneumonia due to COVID-19 virus: Status: Acute (2) HLD (hyperlipidemia): Status: Acute (3) HTN (hypertension): Status: Acute (4) Diarrhea: Status: Acute (5) Acute respiratory failure with hypoxia: Status: Acute (6) Diastolic heart failure: Status: Acute Additional A&P Information COVID-19 pneumonia: On room air for last 18 hrs. O2 supplementation to keep saturation over 90%. Patient having at least moderate COVID-19 pneumonia. C/w Dexamethasone and Remdesevir. Plan for treatment for 3 days if he continues to remain on room air. C/w Advair, Spiriva. C/w zinc, vitamin C. Continue with Eliquis 5 mg twice daily. Most likely patient would require 14- day course. We will continue to monitor inflammatory markers daily including CRP, ferritin, LDH, d-dimer. Levofloxacin 500 mg daily. Most likely 5-day course.. Tessalon Perles as needed. Daily EKGs to check for QTC. Hypertension: Goal blood pressure less than 140/90 mmHg. Blood pressure has been severely elevated since admission. Will start patient on amlodipine 10 mg and Lasix 20 mg. Patient's heart rates have been going down to 50s. For better blood pressure control will change the metoprolol to carvedilol. Start on carvedilol 6.25 mg twice daily. Recent echocardiogram from April 2020 shows an EF of 60%, moderate LVH, grade 2 diastolic dysfunction, moderately dilated right atria and left atria with mild aortic stenosis with mean gradient of 4.6. We will look for bradycardia. Diarrhea: No further episodes of diarrhea. Enteric panel still awaited. Lactoferrin positive. C. difficile not back yet. We will start Lomotil if patient has any further diarrhea once C. difficile comes back negative. Continue chronic medications like hydrocodone, primidone, lovastatin. CODE STATUS: Discussed in detail with patient regarding his wishes for goals of care. He states for now he would want to be full code and would want chest compressions and intubation if required. Discussed the treatment plan and options with him in detail. Also discussed if he continues to require more oxygen supplementation to keep saturation within normal limits he might even require plasma treatment which unfortunately cannot be done at [facility] and for which she will be transferred to a higher center. He is agreeable to same. For now we will continue treatment with antiviral medication. Eliquis will also help with DVT prophylaxis. Oral Protonix for PUD prophylaxis. Cardiac diet. Out of bed to chair. Incentive spirometry. Have tried calling Ms. Hernandez twice since morning. Unfortunately both times going to answering machine. Patient's care plan has been discussed in detail with the patient himself. Attestations Medical Necessity Statement*: Hypoxic respiratory failure, COVID-19 pneumonia Time Spent in Patient Care: Greater than 35 minutes (>than 50% of time spent in counselling and/or direct pt care on unit) . Coding Level of Care Code Acute [employer] for [facility] Fwd Diagnoses Pneumonia due to COVID-19 virus U07.1; J12.89 HLD (hyperlipidemia) E78.5 HTN (hypertension) I10 Diarrhea R19.7 Acute respiratory failure with hypoxia J96.01 Diastolic heart failure I50.30
[2020-06-09 13:29] LABS: Add Urine Microscopic? NO
[2020-06-09 13:38] LABS: Bilirubin Urine Neg (NEGATIVE); Blood Urine Neg (Negative); Glucose Urine UA Norm (Normal); Ketones Urine Negative (Negative); Leukocyte Esterase Urine Negative (Negative); Nitrate Urine Negative (Negative); Protein Urine Neg (Negative); Specific Gravity, Urine 1.015 (1.005-1.030); Urine Appearance Clear (CLEAR); Urine Color Yellow (Yellow); Urobilinogen Urine Norm (Negative); pH Urine 5 (5-7)
[2020-06-09] MEDS: carvedilol 6.25 mg Tablet PO (17:36)
--- NOTE | 2020-06-09 21:42 | PC.NURSE ---
Messaged Dr. Cooper via Voalte that 1 0f 2 prelim blood cxs had popped + for gram + cocci. Orders received to obtain another set of BC and to start IV vanco.
[2020-06-10] VITALS (25 sets, daily range): BP systolic 131–192; BP diastolic 67–106; PULSE 52–97; RESP 12–30; TEMP 36.6–36.9; O2SAT 92–97
[2020-06-10 06:41] LABS: Eosinophils % 0.2 %; Hematocrit 35.4 % (42.0-52.0); Hemoglobin 11.6 g/dL (11.7-16.6); Lymphocytes # 1.8 10^3/uL (0.8-4.8); Lymphocytes % 32.2 %; Mean Corpuscular HGB Conc 32.8 g/dL (30.0-36.0); Mean Corpuscular Hemoglobin 28.9 pg (28.0-34.0); Mean Corpuscular Volume 88.3 fL (80-94); Mean Platelet Volume 11.7 fL (7.4-10.4); Monocytes # 0.6 10^3/uL (0.2-0.9); Monocytes % 11.2 %; Nucleated Red Blood Cells % 0 %; Platelet Count 152 10^3/cmm (130-400); Red Blood Count 4.01 10^6/uL (4.1-5.3); Red Cell Distribution Width 13.2 % (12.1-15.1); White Blood Count 5.5 10^3/uL (4.0-10.0)
[2020-06-10 07:08] LABS: Alanine Aminotransferase 69 U/L (0-41); Albumin Level 3.5 g/dL (3.5-5.2); Alkaline Phosphatase 95 IU/L (40-130); Anion Gap 11.7 (5-19); Aspartate Amino Transferase 46 U/L (0-40); Blood Urea Nitrogen 18 mg/dL (8-23); C Reactive Protein 36.2 mg/L (0.0-4.9); Calcium 8.4 mg/dL (8.5-10.5); Carbon Dioxide 28 mmol/L (22-29); Chloride 106 mmol/L (98-107); Globulin 2.8 g/dL (1.3-4.6); Glucose 112 mg/dL (65-115); Magnesium 1.9 mg/dL (1.7-2.3); Osmolality Calculated 291 mOsm/kg (285-295); Potassium 3.7 mmol/L (3.5-5.1); Sodium 142 mmol/L (136-145); Total Bilirubin 0.3 mg/dL (0.15-1.2); Total Protein 6.3 g/dL (6.6-8.7)
[2020-06-10 07:09] LABS: Ferritin 635 ng/mL (30-400)
[2020-06-10 07:18] LABS: Lactate Dehydrogenase 278 U/L (135-225)
[2020-06-10 07:52] LABS: Fibrinogen 454 mg/dL (174-498)
[2020-06-10 07:55] LABS: D Dimer 0.61 ug/mIFEU (0-0.59)
[2020-06-10] MEDS: ascorbic acid 500 mg Tablet PO ×2 (08:14→17:11)
[2020-06-10] MEDS: zinc gluconate 50 mg Tablet PO (08:14)
[2020-06-10] MEDS: dexamethasone 10 mg/mL INJ 6 MG IVP (08:14)
[2020-06-10] MEDS: atorvastatin 40 mg Tablet 20 MG PO (08:14)
[2020-06-10] MEDS: apixaban 5 mg Tablet PO ×2 (08:17→17:11)
[2020-06-10] MEDS: amlodipine 10 mg Tablet PO (08:17)
[2020-06-10] MEDS: primidone 50 mg Tablet PO ×2 (08:18→17:12)
[2020-06-10] MEDS: benzonatate 100 mg Capsule PO ×3 (08:19→20:32)
[2020-06-10] MEDS: FUROsemide 20 mg Tablet PO (08:20)
[2020-06-10] MEDS: levoFLOXacin 500 mg Tablet PO (08:20)
[2020-06-10] MEDS: carvedilol 6.25 mg Tablet PO ×2 (08:20→12:03)
[2020-06-10] MEDS: CELEcoxib 200 mg Capsule PO ×2 (08:20→17:11)
[2020-06-10] MEDS: sodium chloride 0.9% 1,000 ML 50 ML IV (08:37)
--- NOTE | 2020-06-10 10:00 | ECG_ITS ---
[facility] ED Test Date: 2020-06-10 Pat Name: Brianne Gallardo Department: Room: ICU19 Gender: Male Banquet Coordinator: MICHELLE : 1935 Requested By: Adan Edmond Order Number: [id number] Reading MD: Shawanda Blair M.D. Measurements Intervals [place] Rate: 90 P: 23 FL: 154 QRS: 11 QRSD: 98 T: 32 QT: 377 QTc: 463 Interpretive Statements SINUS RHYTHM INCOMPLETE RIGHT BUNDLE BRANCH BLOCK MODERATE VOLTAGE CRITERIA FOR LVH, CONSIDER NORMAL VARIANT POSSIBLE SEPTAL MYOCARDIAL INFARCTION, PROBABLY OLD Compared to ECG 06/09/2020 15:30:17 Sinus bradycardia no longer present Right-axis deviation no longer present Right ventricular hypertrophy no longer present T-wave abnormality no longer present Possible ischemia no longer present Myocardial infarct finding still present Electronically Signed On 06-12-2020 13:29:42 CDT by Shawanda Blair M.D. [email or web address] county memorial hospitalCocodrilo Dogtr[facility].[employer]/store/OV/[id number]
--- NOTE | 2020-06-10 13:49 | PM.PN ---
Subjective Subjective: Interval history: No acute events overnight. Patient has remained on room air to maintain saturation 92%. On examination patient sitting sitting at the side of the bed having his meals. Denies of any nausea, vomiting, headache, abdominal pain. He states his energy levels are good as well. Patient is ambulating on his own. Vitals/I&O/Wt Last Vital Signs Temp 97.9 F 06/10/20 12:00 Pulse 93 06/10/20 12:00 Resp 22 H 06/10/20 12:00 BP 142/84 06/10/20 12:00 Pulse Ox 96 06/10/20 12:00 06/09/20 06/10/20 06/10/20 22:59 06:59 14:59 Intake Total 400 / 2045 200 / 2245 1400 / 1400 Balance 400 / 1745 200 / 1945 1400 / 1400 Weight last 48 hrs Weight 89.188 kg Weight 89.63 kg Weight 88.904 kg Physical Exam Narrative: EXAM NARRATIVE: General: No acute distress, AO x3 HEENT: PERRLA, pupils bilaterally equal and reactive Chest: Normal vesicular breath sounds, no added sounds, equal good air entry bilaterally CVS: S1-S2 regular, no murmurs, no tachycardia, no gallops, no rubs Abdomen: Soft, nontender, no organomegaly, bowel sounds present Neuro: No focal deficits, no facial deformity, AO x3, power 5/5 in all limbs Data : 06/10/20 04:58 06/10/20 04:58 Micro: Microbiology 06/09/20 23:00 Blood Culture - Preliminary Blood SPECIMEN COLLECTED 06/09/20 22:55 Blood Culture - Preliminary Blood SPECIMEN COLLECTED 06/08/20 12:40 Blood Culture - Preliminary Blood Gram positive cocci 06/08/20 12:35 Blood Culture - Preliminary Blood NEGATIVE TO DATE 06/08/20 14:50 MRSA Culture - Final Nose A&P Assessment and plan (1) Pneumonia due to COVID-19 virus: Status: Acute (2) HLD (hyperlipidemia): Status: Acute (3) HTN (hypertension): Status: Acute (4) Diarrhea: Status: Acute (5) Acute respiratory failure with hypoxia: Status: Acute (6) Diastolic heart failure: Status: Acute Additional A&P Information COVID-19 pneumonia: Has been on room air since the first night of his admission. O2 supplementation to keep saturation over 90%. Patient having at least moderate COVID-19 pneumonia. C/w Remdesevir. Today will be the last day/day 3 of his antiviral treatment. For now we will continue with dexamethasone. C/w Advair, Spiriva. C/w zinc, vitamin C. Continue with Eliquis 5 mg twice daily. Most likely patient would require 14-day course. We will continue to monitor inflammatory markers daily including CRP, ferritin, LDH, d-dimer. Levofloxacin 500 mg daily. Most likely 5-day course.. Tessalon Perles as needed. Daily EKGs to check for QTC. Hypertension: Goal blood pressure less than 140/90 mmHg. Blood pressures better controlled since adding in changing of medications. For now we will continue with amlodipine 10 mg, Lasix 20 mg, carvedilol. We will try to see if he can increase the dose of carvedilol 12.5 mg twice daily. Heart rate better controlled since switching from metoprolol to carvedilol. Recent echocardiogram from April 2020 shows an EF of 60%, moderate LVH, grade 2 diastolic dysfunction, moderately dilated right atria and left atria with mild aortic stenosis with mean gradient of 4.6. Gram-positive bacteremia: Set 1 of 4 from admission positive for coagulase-negative GPC. Most likely contaminant. Repeat blood cultures sent out solutions development analyst. For now continue with vancomycin. We will continue to monitor blood culture results. Diarrhea: No further episodes of diarrhea. Enteric panel still awaited. Lactoferrin positive. C. difficile not back yet. We will start Lomotil if patient has any further diarrhea once C. difficile comes back negative. Continue chronic medications like hydrocodone, primidone, lovastatin. CODE STATUS: Discussed in detail with patient regarding his wishes for goals of care. He states for now he would want to be full code and would want chest compressions and intubation if required. Discussed the treatment plan and options with him in detail. Also discussed if he continues to require more oxygen supplementation to keep saturation within normal limits he might even require plasma treatment which unfortunately cannot be done at [facility] and for which she will be transferred to a higher center. He is agreeable to same. For now we will continue treatment with antiviral medication. Eliquis will also help with DVT prophylaxis. Oral Protonix for PUD prophylaxis. Cardiac diet. Out of bed to chair. Incentive spirometry. Discussed in detail regarding patient's health with his Ms. Hernandez. She states she was tested for COVID-19 and came back positive as well. All the questions were answered. If patient continues to do well in next 24 hours of supplemental oxygenation after finishing his course of antiviral treatment and plan to discharge tomorrow. Attestations Medical Necessity Statement*: COVID-19 pneumonia, hypertension Critical Care Time: Critical Care Time (min): 50 Coding Level of Care Code Acute Organ Assembler for [facility] Fwd Diagnoses Pneumonia due to COVID-19 virus U07.1; J12.89 HLD (hyperlipidemia) E78.5 HTN (hypertension) I10 Diarrhea R19.7 Acute respiratory failure with hypoxia J96.01 Diastolic heart failure I50.30
--- NOTE | 2020-06-10 18:45 | PC.NURSE ---
Received report on patient from Jolie Ross RN. Assumed care at this time.
--- NOTE | 2020-06-10 20:37 | PC.NURSE ---
Called pharmacy and ordered hydralazine for a blood pressure of 170/101. Awaiting medication delivery.
[2020-06-10 20:41] LABS: Glucose Point of Care 145 mg/dL (70-110)
[2020-06-11] VITALS (24 sets, daily range): BP systolic 124–196; BP diastolic 68–95; PULSE 62–110; RESP 14–23; TEMP 36.1–36.7; O2SAT 93–96; BMI 29.6
[2020-06-11] MEDS: hyDRALAzine 20 mg/mL INJ 1 mL 10 MG IVP (04:00)
[2020-06-11 06:20] LABS: Hematocrit 36.7 % (42.0-52.0); Lymphocytes # 1.5 10^3/uL (0.8-4.8); Lymphocytes % 27.9 %; Mean Corpuscular HGB Conc 32.7 g/dL (30.0-36.0); Mean Corpuscular Hemoglobin 28.6 pg (28.0-34.0); Mean Corpuscular Volume 87.6 fL (80-94); Mean Platelet Volume 11.3 fL (7.4-10.4); Monocytes # 0.6 10^3/uL (0.2-0.9); Monocytes % 10.6 %; Neutrophils # 3.29 10^3/uL (1.8-7.7); Neutrophils % 61.1 %; Nucleated Red Blood Cells % 0 %; Platelet Count 186 10^3/cmm (130-400); Red Blood Count 4.19 10^6/uL (4.1-5.3); Red Cell Distribution Width 13.2 % (12.1-15.1); White Blood Count 5.4 10^3/uL (4.0-10.0)
[2020-06-11 06:26] LABS: Fibrinogen 420 mg/dL (174-498)
[2020-06-11 06:29] LABS: D Dimer 0.45 ug/mIFEU (0-0.59)
[2020-06-11 06:45] LABS: Alanine Aminotransferase 65 U/L (0-41); Albumin Level 3.7 g/dL (3.5-5.2); Alkaline Phosphatase 98 IU/L (40-130); Anion Gap 14.4 (5-19); Aspartate Amino Transferase 39 U/L (0-40); Blood Urea Nitrogen 17 mg/dL (8-23); C Reactive Protein 28.5 mg/L (0.0-4.9); Calcium 8.5 mg/dL (8.5-10.5); Carbon Dioxide 25 mmol/L (22-29); Chloride 104 mmol/L (98-107); Ferritin 607 ng/mL (30-400); Globulin 2.7 g/dL (1.3-4.6); Glucose 115 mg/dL (65-115); Lactate Dehydrogenase 227 U/L (135-225); Magnesium 1.9 mg/dL (1.7-2.3); Osmolality Calculated 287 mOsm/kg (285-295); Phosphorus 3.4 mg/dL (2.5-4.5); Potassium 3.4 mmol/L (3.5-5.1); Sodium 140 mmol/L (136-145); Total Bilirubin 0.4 mg/dL (0.15-1.2); Total Protein 6.4 g/dL (6.6-8.7)
[2020-06-11] MEDS: dexamethasone 10 mg/mL INJ 6 MG IVP (08:29)
[2020-06-11] MEDS: atorvastatin 40 mg Tablet 20 MG PO (08:30)
[2020-06-11] MEDS: benzonatate 100 mg Capsule PO ×3 (08:30→20:07)
[2020-06-11] MEDS: apixaban 5 mg Tablet PO ×2 (08:30→18:03)
[2020-06-11] MEDS: amlodipine 10 mg Tablet PO (08:31)
[2020-06-11] MEDS: ascorbic acid 500 mg Tablet PO ×2 (08:31→17:06)
[2020-06-11] MEDS: carvedilol 12.5 mg Tablet PO ×2 (08:31→18:04)
[2020-06-11] MEDS: CELEcoxib 200 mg Capsule PO ×2 (08:32→18:03)
[2020-06-11] MEDS: FUROsemide 20 mg Tablet PO (08:32)
[2020-06-11] MEDS: levoFLOXacin 500 mg Tablet PO (08:33)
[2020-06-11] MEDS: primidone 50 mg Tablet PO ×2 (08:34→18:04)
[2020-06-11] MEDS: zinc gluconate 50 mg Tablet PO (08:34)
[2020-06-11 09:37] LABS: Vancomycin Trough 5.4 ug/mL (10-15)
--- NOTE | 2020-06-11 10:00 | ECG_ITS ---
[facility] ED Test Date: 2020-06-11 Pat Name: Brianne Gallardo Department: Room: ICU19 Gender: Male Client Hr Manager: MICHELLE : 1935 Requested By: Adan Edmond Order Number: [id number] Waleska MD: Shawanda Blair M.D. Measurements Intervals [place] Rate: 100 P: 23 SD: 160 QRS: -6 QRSD: 98 T: 1 QT: 358 QTc: 464 Interpretive Statements SINUS TACHYCARDIA VOLTAGE CRITERIA FOR LVH POSSIBLE SEPTAL MYOCARDIAL INFARCTION, PROBABLY OLD INFERIOR MYOCARDIAL INFARCTION, PROBABLY OLD Compared to ECG 06/10/2020 12:54:03 Sinus rhythm no longer present Incomplete right bundle-branch block no longer present Myocardial infarct finding still present Electronically Signed On 06-12-2020 13:27:25 CDT by Shawanda Blair M.D. [id number]
--- NOTE | 2020-06-11 13:26 | PM.PN ---
Subjective Subjective: Interval history: No acute events overnight. Maintaining saturations on room air. Ambulating okay. Denies of any nausea, vomiting, headache, abdominal pain. He states his energy levels are good as well. Patient is ambulating on his own. Vitals/I&O/Wt Last Vital Signs Temp 97.7 F 06/11/20 12:00 Pulse 83 06/11/20 13:00 Resp 20 H 06/11/20 13:00 BP 124/68 06/11/20 13:00 Pulse Ox 95 06/11/20 13:00 06/10/20 06/11/20 06/11/20 22:59 06:59 14:59 Intake Total 710 / 3360.000 200 / 3560.000 480 / 480 Output Total 200 / 200 300 / 500 Balance 510 / 3160.000 -100 / 3060.000 480 / 480 Weight last 48 hrs Weight 88.507 kg Weight 89.188 kg Physical Exam Narrative: EXAM NARRATIVE: General: No acute distress, AO x3 HEENT: PERRLA, pupils bilaterally equal and reactive Chest: Normal vesicular breath sounds, no added sounds, equal good air entry bilaterally CVS: S1-S2 regular, no murmurs, no tachycardia, no gallops, no rubs Abdomen: Soft, nontender, no organomegaly, bowel sounds present Neuro: No focal deficits, no facial deformity, AO x3, power 5/5 in all limbs Data : 06/11/20 04:00 06/11/20 04:00 Micro: Microbiology 06/09/20 23:00 Blood Culture - Preliminary Blood NEGATIVE TO DATE 06/09/20 22:55 Blood Culture - Preliminary Blood NEGATIVE TO DATE 06/09/20 13:12 Legionella Urinary Antigen - Final Urine,Clean Catch A&P Assessment and plan (1) Pneumonia due to COVID-19 virus: Status: Acute (2) HLD (hyperlipidemia): Status: Acute (3) HTN (hypertension): Status: Acute (4) Diarrhea: Status: Acute (5) Acute respiratory failure with hypoxia: Status: Acute (6) Diastolic heart failure: Status: Acute (7) Gram-positive bacteremia: Status: Acute Additional A&P Information COVID-19 pneumonia: Has been on room air since the first night of his admission. O2 supplementation to keep saturation over 90%. Patient having at least moderate COVID-19 pneumonia. C/w Remdesevir. Today is Day 4. For now we will continue with dexamethasone. C/w Advair, Spiriva. C/w zinc, vitamin C. Continue with Eliquis 5 mg twice daily. Most likely patient would require 14-day course. We will continue to monitor inflammatory markers daily including CRP, ferritin, LDH, d-dimer. Levofloxacin 500 mg daily. Overall 5-day course. Day 4 today. Tessalon Perles as needed. Daily EKGs to check for QTC. Hypertension: Goal blood pressure less than 140/90 mmHg. Blood pressures better controlled since adding in changing of medications. For now we will continue with amlodipine 10 mg, Lasix 20 mg, carvedilol 12.5 mg BID. Heart rate better controlled since switching from metoprolol to carvedilol. Recent echocardiogram from April 2020 shows an EF of 60%, moderate LVH, grade 2 diastolic dysfunction, moderately dilated right atria and left atria with mild aortic stenosis with mean gradient of 4.6. Gram-positive bacteremia: Set 1 of 4 from admission positive for GPC. Most likely contaminant. Repeat blood cultures sent out rhic systems safety engineer. For now continue with vancomycin. We will continue to monitor blood culture results. Diarrhea: No further episodes of diarrhea. Enteric panel still awaited. Lactoferrin positive. C. difficile not back yet. We will start Lomotil if patient has any further diarrhea once C. difficile comes back negative. Continue chronic medications like hydrocodone, primidone, lovastatin. CODE STATUS: Discussed in detail with patient regarding his wishes for goals of care. He states for now he would want to be full code and would want chest compressions and intubation if required. Discussed the treatment plan and options with him in detail. Also discussed if he continues to require more oxygen supplementation to keep saturation within normal limits he might even require plasma treatment which unfortunately cannot be done at [facility] and for which she will be transferred to a higher center. He is agreeable to same. For now we will continue treatment with antiviral medication. Eliquis will also help with DVT prophylaxis. Oral Protonix for PUD prophylaxis. Cardiac diet. Out of bed to chair. Incentive spirometry. Discussed in detail regarding patient's health with his Ms. Hernandez. She states she was tested for COVID-19 and came back positive as well. All the questions were answered. If the patient continues to do well in next 1 to 4 hours can plan to discharge. Will follow cultures for 24 more hours to make sure that the positive 1 out of 4 is a contaminant. Attestations Medical Necessity Statement*: Gram-positive bacteremia, COVID-19 pneumonia Critical Care Time: Critical Care Time (min): 60 Coding Level of Care Code Acute Audiology Director for [facility] Fwd Diagnoses Pneumonia due to COVID-19 virus U07.1; J12.89 HLD (hyperlipidemia) E78.5 HTN (hypertension) I10 Diarrhea R19.7 Acute respiratory failure with hypoxia J96.01 Diastolic heart failure I50.30 Gram-positive bacteremia R78.81
--- NOTE | 2020-06-11 18:45 | PC.NURSE ---
Received report on patient from Jolie MOHAN. Assumed care at this time.
[2020-06-11 20:24] LABS: Glucose Point of Care 124 mg/dL (70-110)
--- NOTE | 2020-06-11 23:44 | PC.NURSE ---
PT IV WAS LEAKING. IV WAS REMOVED (CATHETER TIP INTACT) AND A NEW 20G WAS INSERTED TO THE RIGHT AC. 1X ATTEMPTS WITH GOOD RETURN ON BLOOD. IV FLUSHES AND DRAWS WELL. PT TOLERATED WELL. WILL CONTINUE TO MONITOR.
[2020-06-12] VITALS (13 sets, daily range): BP systolic 132–164; BP diastolic 62–90; PULSE 51–73; RESP 17–37; TEMP 36.6–36.7; O2SAT 91–95; BMI 30.1
--- NOTE | 2020-06-12 05:11 | PC.NURSE ---
BLOOD WAS DRAWN FROM IV IN RIGHT AC FOR MORNING LABS. WILL CONTINUE TO MONITOR.
[2020-06-12 07:30] LABS: Glucose Point of Care 95 mg/dL (70-110)
[2020-06-12] MEDS: ascorbic acid 500 mg Tablet PO (08:47)
[2020-06-12] MEDS: FUROsemide 20 mg Tablet PO (08:47)
[2020-06-12] MEDS: atorvastatin 40 mg Tablet 20 MG PO (08:47)
[2020-06-12] MEDS: apixaban 5 mg Tablet PO (08:47)
[2020-06-12] MEDS: benzonatate 100 mg Capsule PO (08:47)
[2020-06-12] MEDS: amlodipine 10 mg Tablet PO (08:47)
[2020-06-12] MEDS: carvedilol 12.5 mg Tablet PO (08:47)
[2020-06-12] MEDS: levoFLOXacin 500 mg Tablet PO (08:48)
[2020-06-12] MEDS: CELEcoxib 200 mg Capsule PO (08:48)
[2020-06-12] MEDS: dexamethasone 10 mg/mL INJ 6 MG IVP (08:48)
[2020-06-12] MEDS: zinc gluconate 50 mg Tablet PO (08:48)
[2020-06-12] MEDS: primidone 50 mg Tablet PO (08:48)
--- NOTE | 2020-06-12 10:25 | P.DS_ITS ---
Discharge Providers Date of Admission: 06/08/20 13:35 Date of Discharge: June 12, 2020 Attending Provider at Admission: Adan Edmond MD Attending Provider at Discharge: Adan Edmond MD Primary Care Provider: Fabiano Woo MD Diagnoses at Discharge Discharge Diagnosis (1) Pneumonia due to COVID-19 virus: Status: Acute (2) HLD (hyperlipidemia): Status: Acute (3) HTN (hypertension): Status: Acute (4) Diarrhea: Status: Acute (5) Acute respiratory failure with hypoxia: Status: Acute (6) Diastolic heart failure: Status: Acute (7) Gram-positive bacteremia: Status: Acute Reason for Visit Reason for Visit: covid positive Hospital Course Discharge Summary: Brianne Gallardo is a 84 year old male, chronic smoker with past medical history of hypertension, hyperlipidemia, prostate cancer post prostatectomy who presented today from his PCPs office to the ER for extreme weakness. As per the history patient was tested for COVID-19 on May 31 which came back positive. Prior to May 31 patient has been having cough, shortness of breath, weakness, runny nose, flulike symptoms for 5 days for which he has been on Augmentin without any relief. His symptoms continue to worsen since then along with difficulty to get out of bed today for which he went to his primary care's office. Patient is also complaining of 2-3 episodes of diarrhea for last 2 days. Bowel movements are foul-smelling but not bloodstained black in color. He denies of having any chest pain, dizziness, palpitation, fall, dysuria, nausea, vomiting. States his appetite is okay. He also states his sense of smell and taste are intact at present. He was admitted to the hospital for further treatment of COVID-19 pneumonia. On admission he was requiring up to 2 L of oxygen supplementation to keep saturation over 90%. He responded well to the treatment and was on room air in 15 to 16 hours. His inflammatory markers also trended down. During hospitalization he was found to have extremely elevated blood pressures for which his antihypertensives were adjusted. At present he is on amlodipine 10 mg, carvedilol 12.5 mg twice daily, Lasix 20 mg. Recent echocardiogram from April 2020 shows an EF of 60%, moderate LVH, grade 2 diastolic dysfunction, moderately dilated right atria and left atria with mild aortic stenosis with mean gradient of 4.6. His blood cultures from day of admission grew 1 out of 4 positive for GPC. Repeat blood cultures from June 09 have remained negative. Most likely 1 out of 4 set is contaminant. He has been discharged in hemodynamically stable condition while saturating more than 92% on room air for more than last 48 hours. He is been discharged on multivitamin, vitamin C, zinc Advair, Spiriva, Medrol pack, Eliquis for next 2 weeks. He is advised to follow-up with his primary care provider within next 4 to 7 days through tele-visit. He has been counseled regarding social distancing and importance of mask. Physical Exam Narrative: EXAM NARRATIVE: General: No acute distress, AO x3 HEENT: PERRLA, pupils bilaterally equal and reactive Chest: Normal vesicular breath sounds, no added sounds, equal good air entry bilaterally CVS: S1-S2 regular, no murmurs, no tachycardia, no gallops, no rubs Abdomen: Soft, nontender, no organomegaly, bowel sounds present Neuro: No focal deficits, no facial deformity, AO x3, power 5/5 in all limbs Discharge Data Data Completed and Pending: Completed Studies During Hospitalization Category Date Time Status CT angio chest PE protcl [id number] Stat Cat Scan 06/08/20 13:28 Completed XR chest 1V kris ble [id number] Stat Exams 06/08/20 12:50 Completed Pending at discharge Category Date Time Status Blood Culture Sta t Lab 06/08/20 12:40 Results Blood Culture Sta t Lab 06/09/20 23:00 Results Sputum Culture an d Gram Stain Stat Lab 06/08/20 14:42 Uncollected Vancomycin Trough Timed Lab 06/12/20 22:30 Ordered Labs from last 24 hours 06/12/20 06/12/20 06/11/20 07:24 04:25 20:09 POC Glucose 95 124 Vancomycin Trough Pending Vitals: Last Vital Signs Temp 97.8 F 06/12/20 08:00 Pulse 59 L 06/12/20 07:00 Resp 17 06/12/20 07:00 BP 151/73 06/12/20 08:00 Pulse Ox 94 06/12/20 07:00 Discharge Plan Discharge Patient Disposition: Home Condition: Stable Prescriptions: New Advair Diskus 250-50 mcg/dose Blister With Device 1 puff inhalation BID.RESPIRATORY Qty: 1 RF: 0 carvedilol 12.5 mg Tablet 12.5 mg PO BID Qty: 60 RF: 0 Vitamin C 500 mg Tablet 500 mg PO BID Qty: 330 RF: 0 amlodipine 10 mg Tablet 10 mg PO DAILY Qty: 30 RF: 0 benzonatate 100 mg Capsule 100 mg PO TID Qty: 10 RF: 0 zinc gluconate 50 mg Tablet 50 mg PO DAILY Qty: 30 RF: 0 furosemide 20 mg Tablet 20 mg PO DAILY@0800 Qty: 30 RF: 0 Spiriva with HandiHaler 18 mcg Capsule, W/Inhalation Device 18 mcg inhalation DAILY.RESPIRATORY Qty: 14 RF: 0 Eliquis 5 mg Tablet 5 mg PO BID Qty: 288 RF: 0 Medrol (Luc) 4 mg tablets,dose pack See Rx Instructions .ROUTE .COMPLEX Qty: 21 RF: 0 Continued primidone 50 mg PO BID RF: 0 lovastatin 40 mg tablet 40 mg PO DAILY RF: 0 celecoxib [Celebrex] 200 mg capsule 200 mg PO BID RF: 0 hydrocodone-acetaminophen 5-325 mg tablet 1 tab PO Q4H PRN (Reason: Pain) RF: 0 Discontinued metoprolol tartrate 50 mg tablet See Rx Instructions PO BID RF: 0 Discharge Orders: Discharge Order (Routine); Ordered 06/12/20 Ordered By: Adan Edmond Referrals: Fabiano Woo MD [Primary Care Provider] - 4-7 days Discharge Diet: Usual diet and Cardiac Discharge Activity: Resume usual activity and Increase activity as tolerated Activity Restrictions/Additional Instructions: Danger signs for return to hospital are if you are feeling more out of breath than usual, confusion, fever more than 101 Fahrenheit not controlled by Tylenol, if you are not able to keep anything down by mouth. New medications would be vitamin C, zinc, and elevation to Spiriva and Advair, Eliquis for next 2 weeks. Discharge Date/Time: 06/12/20 13:09 Discharge Attestations Time Spent in Discharge Care*: greater than 30 min Specific Discharge Activities: Specific discharge activities: educating patient, educating and/or supporting family/caregiver, discussing with pcp/other providers, discussing with transplant case manager/social workers/dc planners, documenting/other paperwork and evaluating patient/reviewing data Status at Discharge: Cognitive status at discharge: cognitively intact , Behavioral status at discharge: cooperative , Functional status at discharge: independent ambulation Overall status at discharge: patient is progressing back to baseline Quality Metrics Clinical Quality Measures During this hospital stay, did patient experience: None Coding Level of Care Code Acute Corporate Counsel for [facility] Fwd Diagnoses Pneumonia due to COVID-19 virus U07.1; J12.89 HLD (hyperlipidemia) E78.5 HTN (hypertension) I10 Diarrhea R19.7 Acute respiratory failure with hypoxia J96.01 Diastolic heart failure I50.30 Gram-positive bacteremia R78.81
[2020-06-12 13:44] LABS: Glucose Point of Care 112 mg/dL (70-110)
--- NOTE | 2020-06-14 14:09 | PC.SOCIAL ---
Spoke with in detail post discharge. Overall patient is improving. Has been up walking around is not requiring O2. He has been weaker than normal but this continues to improve slowly as well. We discussed how to use IS and Acapella and to rinse mouth out after use of these and inhalers. We discussed medications including Carvedilol, Amlodipine and Eliquis. Gave normal parameters for BP and HR. Advised to have him check this twice daily morning and evening since was started on new medications. Discussed Metoprolol was Dc'd. Per patient is eating and drinking. He is taking all medications. called unit once they were home to discuss medications to be sure taking them correctly, indicates they will call Dr Woo office tomorrow to make a telehealth appt. had tested positive previously at [facility]. We discussed they both may be eligible for Plasma donation and that information will be sent out regarding this. was provided this nurse's number in case she has questions. NO other concerns or questions voiced.
== END 2020-06-12 13:09 | disposition home or self-care (01) | DRG 177 ==
LOC: ER 12:44 → ICU 14:06
PROVIDERS: Family Medicine; Internal Medicine; Admitting Provider Student in an Organized Health Care Education/Training Program; PCP Family Medicine; Visit Provider Student in an Organized Health Care Education/Training Program
DX: U07.1 COVID-19 (principal); J12.89 Other viral pneumonia; J96.01 Acute respiratory failure with hypoxia; I50.31 Acute diastolic (congestive) heart failure; E78.5 Hyperlipidemia, unspecified; R19.7 Diarrhea, unspecified; I11.0 Hypertensive heart disease with heart failure; Z85.46 Personal history of malignant neoplasm of prostate; Z87.891 Personal history of nicotine dependence
CPT/HCPCS: 12345; 36415; 36416; 36600; 71045; 71275; 80053; 80061; 80202; 81003; 82550; 82728; 82803; 82962; 83036; 83605; 83615; 83735; 83880; 84100; 84145; 84443; 85025; 85378; 85384; 85610; 85730; 86140; 87040; 87070; 87077; 87449; 87641; 87804; 93005; 94664; 96375; 99283; J0360; J1100; J3370; J7030; J7050; Q9967

== ENCOUNTER → 2020-12-20 09:57 | Outpatient (BNVA) | payer MEDICARE, BC, SELFPAY | PROVIDERS: PCP Family Medicine; Referring Provider Family Medicine; Visit Provider Urology | DX: C61 Malignant neoplasm of prostate (principal); R79.89 Other specified abnormal findings of blood chemistry; N20.0 Calculus of kidney | CPT/HCPCS: 81003 ==

== ENCOUNTER 2021-02-02 12:28 | Outpatient (CLI) | payer MEDICARE, BC, SELFPAY ==
--- NOTE | 2021-02-02 15:15 | XR_ITS ---
WS: [id number] Exam: XR KUB [id number] Date/Time of Exam: 02/02/2021 12:38 PM Reason For Exam: N20.0 - Calculus of kidney There are calcifications superimpose both renal silhouettes which may represent renal calculi. No bow el obstruction or free air. Visualized organ margins are intact. Advanced degenerative change and dex troscoliosis of lumbar spine. Signs of L5 vertebral plasty. Numerous surgical clips in the pelvis. XR/XR KUB [id number] IMPRESSION: 1. Calcification superimpose both renal silhouettes and could represent renal c alculi. 2. No acute abdominal process. Additional nonacute findings.
== END 2021-02-02 12:29 | disposition home or self-care (01) ==
PROVIDERS: PCP Family Medicine; Visit Provider Urology
DX: N20.0 Calculus of kidney (principal)
CPT/HCPCS: 74018; 81003; 84403; G0103

== ENCOUNTER 2021-03-24 05:07 | Emergency (ER) | payer MEDICARE, BC, SELFPAY ==
[2021-03-24 05:11] VITALS: BP 193/91; PULSE 57; RESP 18; TEMP 36.6; O2SAT 93; BMI 30.1
[2021-03-24 05:20] VITALS: BP 193/91; PULSE 51; RESP 18; TEMP 36.6; O2SAT 92
--- NOTE | 2021-03-24 05:26 | CTR_ITS ---
PROCEDURE INFORMATION: Exam: CT Abdomen And Pelvis Without Contrast Exam date and time: 03/24/2021 5:26 AM Age: 85 years old Clinical indication: Abdominal pain; Prior surgery; Surgery type: Kyphoplasty. ; Patient HX: Left flank pain. History of nephrolithiasis. Bladder cancer. ; Additional info: L flank pain TECHNIQUE: Imaging protocol: Computed tomography of the abdomen and pelvis without contrast. Radiation optimization: All CT scans at this facility use at least one of these dose optimization techniques: automated exposure control; mA and/or kV adjustment per patient size (includes targeted exams where dose is matched to clinical indication); or iterative reconstruction. COMPARISON: CR XR KUB [id number] 02/02/2021 12:44 PM RADIATION DOSE METRICS: Total DLP (mGy-cm): 1719.56 FINDINGS: Lungs: The lung bases are clear. No effusion Liver: There are multiple hepatic cysts, largest of which measures 1.7 cm. Gallbladder and bile ducts: No wall thickening, pericholecystic fluid or stones. Pancreas: Normal. No ductal dilation. Spleen: Normal. No splenomegaly. Adrenal glands: Normal. No mass. Kidneys and ureters: Multiple nonobstructing right renal stones, largest measures 4 mm. 9 mm left proximal ureteral stone with mild hydronephrosis. Stomach and bowel: Diverticulosis without diverticulitis. Appendix: No evidence of appendicitis. Intraperitoneal space: Unremarkable. No free air. No significant fluid collection. Vasculature: Unremarkable. No abdominal aortic aneurysm. Lymph nodes: Unremarkable. No enlarged lymph nodes. Urinary bladder: Unremarkable as visualized. Reproductive: Unremarkable as visualized. Bones/joints: Unremarkable. No acute fracture. Soft tissues: Surgical clips present in the pelvis. CT/CT kidney stone [id number] IMPRESSION: 1. 9 mm left proximal ureteral stone with mild hydronephrosis. 2. Diverticulosis without diverticulitis. Radiation Dose CTDIVOL = (mGy): DLP = 1719.56 (mGy-cm)
--- NOTE | 2021-03-24 05:27 | ED_ITS ---
Documented by User: Tai Hadley MD 03/24/21 05:29 HPI - Back Pain/Injury General: Chief Complaint: Back Pain/Injury Stated Complaint: LOW BACK PAIN Time Seen by Provider: 03/24/21 05:10 Source: patient and EMS Mode of arrival: EMS Limitations: no limitations History of Present Illness: HPI Narrative: 85-year-old male states that he woke up this morning at 330 with a sharp severe stabbing pain in his left flank and lower back. He states that he had no worsening or improving factors. He states it was not worsened with movement or palpation. He states he had a kidney stone a little over a year ago and the pain was similar. He had some nausea. Patient was given 30 mg of Toradol IV by EMS he states his pain is much improved currently and rates it a 1 out of 10. Associated symptoms: Deny abdominal pain, chills, fever(s), nausea or vomiting Review of Systems Const: Denies: fever(s), chills, body aches or change in appetite Eyes: Denies: blurry vision or eye discomfort ENMT: Denies: throat pain or dental pain Card: Denies: chest pain Resp: Denies: dyspnea GI: Denies: abdominal pain, nausea, vomiting or diarrhea : Reports: flank pain Musc: Denies: neck pain or back pain Skin/Breast: Denies: rash Neuro: Denies: headache(s) Psych: Denies: depression Mohan/Lymph: Denies: easy bruising All/Imm: Denies: urticaria PFSH ED PFSH: Medical History Diastolic heart failure HLD (hyperlipidemia) HTN (hypertension) 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 Prostate cancer Urolithiasis Surgical History H/O hernia repair H/O lithotripsy H/O prostatectomy Family History Denies family history of CAD (coronary artery disease) Cancer Social History Quit status (tobacco): has quit using tobacco Year quit tobacco: 2019 Alcohol intake: never Household members: spouse Housing: House Marital status: History of recent travel: No Physical Exam Const: COMMON NORMALS: no acute distress, patient oriented x3 and healthy appearing HENMT: COMMON NORMALS: normocephalic and atraumatic HEAD & SCALP: normocephalic and atraumatic Eye: COMMON NORMALS: Equal, round and reactive pupils present and EOMs intact bilaterally PUPIL: Yes Equal, round and reactive pupils present Neck/C-Spine: COMMON NORMALS: full ROM and supple Chest: COMMONS NORMALS: normal inspection of the chest and normal palpation of entire chest wall Resp: COMMON NORMALS: normal respiratory effort, No retractions, No use of accessory muscles and clear to auscultation bilaterally AUSCULTATION: clear to auscultation bilaterally Cardio: COMMON NORMALS: regular rate, regular rhythm and No murmurs present (Cardio) RATE: regular rate RHYTHM: regular rhythm GI: COMMON NORMALS: Normal to inspection, nondistended, normoactive bowel sounds present, Soft to palpation, non-tender and no masses PALPATION: Yes Soft to palpation Extremity: COMMON NORMALS: normal to inspection and full ROM Neuro: COMMON NORMALS: patient oriented x3, moves all extremities and no focal motor deficits Psych: COMMON NORMALS: mental status grossly normal, Normal thought process present and cooperative THOUGHT PROCESS: Normal thought process present Skin: COMMON NORMALS: no rashes or lesions noted and no wounds GENERAL SKIN EXAM: no rashes or lesions noted Course Vital Signs: Vital signs: Vital Signs Temperature 97.9 F 03/24/21 05:20 Pulse Rate 51 L 03/24/21 06:37 Respiratory Rate 17 03/24/21 06:37 Blood Pressure 173/80 03/24/21 06:37 Pulse Oximetry 92 03/24/21 06:37 MDM - Back Pain/Injury Lab Data: Labs: Lab Results 03/24/21 03/24/21 03/24/21 Range/Units 04:46 04:46 07:12 WBC 8.5 (4.0-10.0) 10^3/ uL RBC 4.81 (4.1-5.3) 10^6/u L Hgb 14.1 (11.7-16.6) g/dL Hct 42.9 (42.0-52.0) % MCV 89.2 (80-94) fL MCH 29.3 (28.0-34.0) pg MCHC 32.9 (30.0-36.0) g/dL RDW 13.5 (12.1-15.1) % Plt Count 158 (130-400) 10^3/c mm MPV 10.6 H (7.4-10.4) fL Neut % (Auto) 46.8 % Lymph % (Auto) 38.3 % Stevens % (Auto) 9.0 % Eos % (Auto) 5.2 % Baso % (Auto) 0.6 % Neut # (Auto) 3.96 (1.8-7.7) 10^3/u L Lymph # (Auto) 3.2 (0.8-4.8) 10^3/u L Stevens # (Auto) 0.8 (0.2-0.9) 10^3/u L Eos # (Auto) 0.4 (0.0-0.8) 10^3/u L Baso # (Auto) 0.1 (0.0-0.1) 10^3/u L Nucleated RBC % (a uto) 0 % Nucleated RBCs # 0.0 /100WBC Sodium 140 (136-145) mmol/L Potassium 4.0 (3.5-5.1) mmol/L Chloride 103 (98-107) mmol/L Carbon Dioxide 28 (22-29) mmol/L Anion Gap 13.0 (5-19) BUN 23 (8-23) mg/dL Creatinine 0.8 (0.7-1.2) mg/dL GFR Calculation Not Reportable Glucose 105 (65-115) mg/dL Calculated Osmolal ity 294 (285-295) mOsm/k g Calcium 9.2 (8.5-10.5) mg/dL Total Bilirubin 0.3 (0.15-1.2) mg/dL AST 20 (0-40) U/L ALT 17 (0-41) U/L Alkaline Phosphata se 121 (40-130) IU/L Total Protein 6.9 (6.6-8.7) g/dL Albumin 4.5 (3.5-5.2) g/dL Globulin 2.4 (1.3-4.6) g/dL Lipase 19 (13-60) U/L Urine Color Yellow (Yellow) Urine Appearance Sl hazy (CLEAR) Urine pH 5 (5-7) Ur Specific Gravit y 1.025 (1.005-1.030) Urine Protein Trace (Negative) Urine Glucose (UA) Norm (Normal) Urine Ketones Negative (Negative) Urine Blood 3+ H (Negative) Urine Nitrate Negative (Negative) Urine Bilirubin Neg (Negative) Urine Urobilinogen Norm (Negative) mg/dL Ur Leukocyte Shelby ase Negative (Negative) Urine RBC 50-80 H (0-2) /hpf Urine WBC 0-4 H (0-5) /hpf Ur Squamous Epith Cells 0-4 H (0-5) /hpf Amorphous Sediment Not Reportable Urine Bacteria 1+ H (NONE) /hpf Hyaline Casts 0-4 H /lpf Urine Mucus Trace /hpf Discharge Plan Discharge Patient Disposition: Home Clinical Impression: Left nephrolithiasis, Prostate cancer Condition: Stable Prescriptions: New hydrocodone-acetaminophen 5-325 mg tablet 1 tab PO Q6H PRN (Reason: pain) Qty: 25 RF: 0 Zofran 4 mg tablet 4 mg PO Q6H PRN (Reason: nausea and vomiting) Qty: 15 RF: 0 tamsulosin 0.4 mg capsule 0.4 mg PO DAILY Qty: 14 RF: 0 No Action primidone 50 mg PO BID RF: 0 lovastatin 40 mg tablet 40 mg PO DAILY RF: 0 celecoxib [Celebrex] 200 mg capsule 200 mg PO BID RF: 0 hydrocodone-acetaminophen 5-325 mg tablet 1 tab PO Q4H PRN (Reason: Pain) RF: 0 aspirin 325 mg tablet 325 mg PO DAILY RF: 0 metoprolol succinate 50 mg tablet extended release 24 hr 50 mg PO BID RF: 0 Discharge Orders: Discharge ED (Routine); Ordered 03/24/21 Ordered By: Gulshan Small Referrals: Fabiano Woo MD [Primary Care Provider] - Discharge Diet: Usual diet Discharge Activity: Increase activity as tolerated Patient Instructions: Opioid Safety Activity Restrictions/Additional Instructions: Pain urine. Case management will call to make arrangements for you to see urology. If pain is uncontrolled return. Sign Out Sign Out Data: Patient Sign Out occurred on 03/24/21 at 05:58. Patient's care was discussed, and care was transferred from to Gulshan Small DO. Coding Level of Care Code ED Operations And Maintenance Specialist for Chg Fwd Exam Comprehensive Documented by User: Gulshan Small DO 03/24/21 07:35 HPI - Back Pain/Injury General: Chief Complaint: Back Pain/Injury Stated Complaint: LOW BACK PAIN Time Seen by Provider: 03/24/21 05:10 PFSH ED PFSH: Medical History Diastolic heart failure HLD (hyperlipidemia) HTN (hypertension) 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 Prostate cancer Urolithiasis Surgical History H/O hernia repair H/O lithotripsy H/O prostatectomy Family History Denies family history of CAD (coronary artery disease) Cancer Social History Quit status (tobacco): has quit using tobacco Year quit tobacco: 2019 Alcohol intake: never Household members: spouse Housing: House Marital status: History of recent travel: No Course Vital Signs: Vital signs: Vital Signs Temperature 97.9 F 03/24/21 05:20 Pulse Rate 51 L 03/24/21 06:37 Respiratory Rate 17 03/24/21 06:37 Blood Pressure 173/80 03/24/21 06:37 Pulse Oximetry 92 03/24/21 06:37 MDM - Back Pain/Injury MDM Narrative: Medical decision making narrative: Care assumed at change of shift. Patient has 9 mm proximal left ureterolithiasis with mild hydronephrosis. He has seen Dr. Brasher in the past he has a history of prostate cancer with a previous radical prostatectomy who discussed with the patient discharged home with pain medicine strain urine follow-up with Dr. Simmons in the next few days return if has persistent back pain. Lab Data: Labs: Lab Results 03/24/21 03/24/21 03/24/21 Range/Units 04:46 04:46 07:12 WBC 8.5 (4.0-10.0) 10^3/ uL RBC 4.81 (4.1-5.3) 10^6/u L Hgb 14.1 (11.7-16.6) g/dL Hct 42.9 (42.0-52.0) % MCV 89.2 (80-94) fL MCH 29.3 (28.0-34.0) pg MCHC 32.9 (30.0-36.0) g/dL RDW 13.5 (12.1-15.1) % Plt Count 158 (130-400) 10^3/c mm MPV 10.6 H (7.4-10.4) fL Neut % (Auto) 46.8 % Lymph % (Auto) 38.3 % Stevens % (Auto) 9.0 % Eos % (Auto) 5.2 % Baso % (Auto) 0.6 % Neut # (Auto) 3.96 (1.8-7.7) 10^3/u L Lymph # (Auto) 3.2 (0.8-4.8) 10^3/u L Stevens # (Auto) 0.8 (0.2-0.9) 10^3/u L Eos # (Auto) 0.4 (0.0-0.8) 10^3/u L Baso # (Auto) 0.1 (0.0-0.1) 10^3/u L Nucleated RBC % (a uto) 0 % Nucleated RBCs # 0.0 /100WBC Sodium 140 (136-145) mmol/L Potassium 4.0 (3.5-5.1) mmol/L Chloride 103 (98-107) mmol/L Carbon Dioxide 28 (22-29) mmol/L Anion Gap 13.0 (5-19) BUN 23 (8-23) mg/dL Creatinine 0.8 (0.7-1.2) mg/dL GFR Calculation Not Reportable Glucose 105 (65-115) mg/dL Calculated Osmolal ity 294 (285-295) mOsm/k g Calcium 9.2 (8.5-10.5) mg/dL Total Bilirubin 0.3 (0.15-1.2) mg/dL AST 20 (0-40) U/L ALT 17 (0-41) U/L Alkaline Phosphata se 121 (40-130) IU/L Total Protein 6.9 (6.6-8.7) g/dL Albumin 4.5 (3.5-5.2) g/dL Globulin 2.4 (1.3-4.6) g/dL Lipase 19 (13-60) U/L Urine Color Yellow (Yellow) Urine Appearance Sl hazy (CLEAR) Urine pH 5 (5-7) Ur Specific Gravit y 1.025 (1.005-1.030) Urine Protein Trace (Negative) Urine Glucose (UA) Norm (Normal) Urine Ketones Negative (Negative) Urine Blood 3+ H (Negative) Urine Nitrate Negative (Negative) Urine Bilirubin Neg (Negative) Urine Urobilinogen Norm (Negative) mg/dL Ur Leukocyte Shelby ase Negative (Negative) Urine RBC 50-80 H (0-2) /hpf Urine WBC 0-4 H (0-5) /hpf Ur Squamous Epith Cells 0-4 H (0-5) /hpf Amorphous Sediment Not Reportable Urine Bacteria 1+ H (NONE) /hpf Hyaline Casts 0-4 H /lpf Urine Mucus Trace /hpf Discharge Plan Discharge Patient Disposition: Home Clinical Impression: Left nephrolithiasis, Prostate cancer Condition: Stable Prescriptions: New hydrocodone-acetaminophen 5-325 mg tablet 1 tab PO Q6H PRN (Reason: pain) Qty: 25 RF: 0 Zofran 4 mg tablet 4 mg PO Q6H PRN (Reason: nausea and vomiting) Qty: 15 RF: 0 tamsulosin 0.4 mg capsule 0.4 mg PO DAILY Qty: 14 RF: 0 No Action primidone 50 mg PO BID RF: 0 lovastatin 40 mg tablet 40 mg PO DAILY RF: 0 celecoxib [Celebrex] 200 mg capsule 200 mg PO BID RF: 0 hydrocodone-acetaminophen 5-325 mg tablet 1 tab PO Q4H PRN (Reason: Pain) RF: 0 aspirin 325 mg tablet 325 mg PO DAILY RF: 0 metoprolol succinate 50 mg tablet extended release 24 hr 50 mg PO BID RF: 0 Discharge Orders: Discharge ED (Routine); Ordered 03/24/21 Ordered By: Gulshan Small Referrals: Fabiano Woo MD [Primary Care Provider] - Discharge Diet: Usual diet Discharge Activity: Increase activity as tolerated Patient Instructions: Opioid Safety Activity Restrictions/Additional Instructions: Pain urine. Case management will call to make arrangements for you to see urology. If pain is uncontrolled return. Sign Out Sign Out Data: Patient Sign Out occurred on 03/24/21 at 05:58. Patient's care was discussed, and care was transferred from to Gulshan Small DO. Coding Level of Care Code ED Operations And Maintenance Specialist for Chg Fwd Exam Comprehensive
[2021-03-24 05:34] LABS: Basophils # 0.1 10^3/uL (0.0-0.1); Basophils % 0.6 %; Eosinophils # 0.4 10^3/uL (0.0-0.8); Eosinophils % 5.2 %; Hematocrit 42.9 % (42.0-52.0); Hemoglobin 14.1 g/dL (11.7-16.6); Lymphocytes # 3.2 10^3/uL (0.8-4.8); Lymphocytes % 38.3 %; Mean Corpuscular HGB Conc 32.9 g/dL (30.0-36.0); Mean Corpuscular Hemoglobin 29.3 pg (28.0-34.0); Mean Corpuscular Volume 89.2 fL (80-94); Mean Platelet Volume 10.6 fL (7.4-10.4); Monocytes # 0.8 10^3/uL (0.2-0.9); Neutrophils # 3.96 10^3/uL (1.8-7.7); Neutrophils % 46.8 %; Nucleated Red Blood Cells % 0 %; Platelet Count 158 10^3/cmm (130-400); Red Blood Count 4.81 10^6/uL (4.1-5.3); Red Cell Distribution Width 13.5 % (12.1-15.1); White Blood Count 8.5 10^3/uL (4.0-10.0)
[2021-03-24 05:45] LABS: Alanine Aminotransferase 17 U/L (0-41); Albumin Level 4.5 g/dL (3.5-5.2); Alkaline Phosphatase 121 IU/L (40-130); Aspartate Amino Transferase 20 U/L (0-40); Blood Urea Nitrogen 23 mg/dL (8-23); Calcium 9.2 mg/dL (8.5-10.5); Carbon Dioxide 28 mmol/L (22-29); Chloride 103 mmol/L (98-107); Globulin 2.4 g/dL (1.3-4.6); Glucose 105 mg/dL (65-115); Lipase 19 U/L (13-60); Osmolality Calculated 294 mOsm/kg (285-295); Sodium 140 mmol/L (136-145); Total Bilirubin 0.3 mg/dL (0.15-1.2); Total Protein 6.9 g/dL (6.6-8.7)
[2021-03-24 05:55] VITALS: BP 184/76; PULSE 50; RESP 21; O2SAT 92
--- NOTE | 2021-03-24 05:58 | ECG_ITS ---
[facility] Test Date: 2021-03-24 Pat Name: Arron Gallardo Department: Room: Gender: Male Medical Researcher: : 1935 Requested By: Gulshan Bee Order Number: [id number] Waleska MD: Chris Santana M.D. Measurements Intervals [place] Rate: 51 P: 25 ND: 181 QRS: -1 QRSD: 92 T: -6 QT: 424 QTc: 391 Interpretive Statements SINUS BRADYCARDIA SEPTAL MYOCARDIAL INFARCTION [40+ ms Q WAVE IN V1/V2], OF INDETERMINATE AGE Compared to ECG 06/11/2020 08:55:04 Sinus tachycardia no longer present Left ventricular hypertrophy no longer present Myocardial infarct finding still present Electronically Signed On 03-24-2021 18:23:14 CDT by Chris Santana M.D. [id number]
[2021-03-24 06:37] VITALS: BP 173/80; PULSE 51; RESP 17; O2SAT 92
[2021-03-24 07:28] LABS: Bilirubin Urine Neg (Negative); Blood Urine 3+ (Negative); Glucose Urine UA Norm (Normal); Ketones Urine Negative (Negative); Nitrate Urine Negative (Negative); Protein Urine Trace (Negative); Specific Gravity, Urine 1.025 (1.005-1.030); Urine Appearance SL Hazy (CLEAR); Urine Color Yellow (Yellow); Urobilinogen Urine Norm (Negative); pH Urine 5 (5-7)
[2021-03-24 07:29] LABS: Add Urine Microscopic? YES; Leukocyte Esterase Urine Negative (Negative)
[2021-03-24 07:30] LABS: RBC Urine 50-80 /hpf (0-2)
[2021-03-24 07:31] LABS: Bacteria Urine 1+ /hpf; Mucus Urine TRACE /hpf; Squamous Epithelial Cell Urine 0-4 /hpf (0-5); WBC Urine 0-4 /hpf (0-5)
[2021-03-24 07:32] LABS: Add Urine Culture? Yes; Hyaline Casts Urine 0-4 /lpf
[2021-03-24 07:50] VITALS: BP 178/82; PULSE 46; RESP 17; O2SAT 94
--- NOTE | 2021-03-24 09:21 | DCPLANNER ---
car rental manager had message to schedule a follow up appointment for patient with Dr. Simmons. car rental manager called the office of Dr. Simmons, spoke with Mary, gave clinic patients information. car rental manager was told that patients information would be printed and reviewed. Clinic will call patient with appointment information.
--- NOTE | 2021-03-28 07:07 | DCPLANNER ---
Patient had a follow up appointment scheduled for 03.25.[address] Simmons - patient did attend appointment.
== END 2021-03-24 07:45 | disposition home or self-care (01) ==
PROVIDERS: Emergency Medicine; Emergency Provider Family Medicine; PCP Family Medicine
DX: N20.0 Calculus of kidney (principal); C61 Malignant neoplasm of prostate; Z79.82 Long term (current) use of aspirin; I11.0 Hypertensive heart disease with heart failure; I50.30 Unspecified diastolic (congestive) heart failure; E78.5 Hyperlipidemia, unspecified; Z87.442 Personal history of urinary calculi; Z87.891 Personal history of nicotine dependence
CPT/HCPCS: 74176; 80053; 81001; 83690; 85025; 87086; 93005; 99284

== ENCOUNTER 2021-03-25 07:23 | Outpatient (CLI) | payer MEDICARE, BC, SELFPAY ==
--- NOTE | 2021-03-25 07:30 | XR_ITS ---
WS: [id number] Exam: XR [id number] Date/Time of Exam: 03/25/2021 7:30 AM Reason For Exam: CALCULUS OF KIDNEY Comparison 02/02/2021 also a renal colic CT scan performed 03/24/2021. No bowel obstruction or free air. Calcifications superimpose both kidneys apparently representing kno wn bilateral renal stones. A 1 cm calcification is seen along the medial aspect of the left kidney an d apparently represents a UPJ stone as noted on the recent renal colic CT. Several pelvic calcificati ons are noted. Signs of previous pelvic surgery. Visualized organ margins are intact. 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 Signs of the L5 vertebral plasty. XR/XR KUB [id number] IMPRESSION: 1. No acute abdominal finding. 2. 1 cm calcification along the medial left kidney apparently representing a UP J stone. Additional bilateral calcifications seen in the region of both kidneys representing renal stones.
== END 2021-03-25 07:24 | disposition home or self-care (01) ==
PROVIDERS: PCP Family Medicine; Visit Provider Urology
DX: N20.0 Calculus of kidney (principal); Z20.822 Contact with and (suspected) exposure to COVID-19
CPT/HCPCS: 74018; 81003; 87635

== ENCOUNTER 2021-03-26 06:24 | Emergency (ER) | payer MEDICARE, BC, SELFPAY ==
[2021-03-26 06:34] VITALS: PULSE 59; RESP 17; TEMP 36.7; O2SAT 94; BMI 31.0
--- NOTE | 2021-03-26 06:56 | W.ED.MALEGU ---
Documented by User: MARCIAL Phelps 03/26/21 10:10 HPI - Male Genitourinary General: Chief complaint: Urogenital-Male Stated complaint: Lower back pain. PT states poss kidney stone Time Seen by Provider: 03/26/21 06:33 History of Present Illness: HPI Narrative: Patient with ongoing pain from left sided calculus. Said this pain that he has today woke up at 530 this morning does not relented hydrocodone's not helping. Patient said he is scheduled for surgery on Sunday. CT report showed mild hydronephrosis and KUB the following day showed stones on same place. Patient for pain control. Complaint: other Onset (ago): day(s) Duration: constant Location: left flank Associated symptoms: Deny nausea or vomiting Review of Systems Const: Denies: fever(s), chills or body aches Eyes: Denies: change in vision or blurry vision ENMT: Denies: throat pain or nasal congestion Card: Denies: chest pain or dyspnea on exertion Resp: Denies: dyspnea, productive cough or non-productive cough GI: Denies: abdominal pain, nausea or vomiting : Reports: flank pain; Denies: difficulty urinating Musc: Denies: extremity pain Skin/Breast: Denies: rash Neuro: Denies: headache(s) Psych: Denies: anxiety or depression Mohan/Lymph: Denies: easy bruising PFSH ED PFSH: Medical History Diastolic heart failure HLD (hyperlipidemia) HTN (hypertension) 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 Prostate cancer Urolithiasis Nonobstructing left renal calculus. Surgical History H/O hernia repair H/O lithotripsy H/O prostatectomy Social History Quit status (tobacco): has quit using tobacco Year quit tobacco: 2019 Alcohol intake: never Household members: spouse Housing: House Marital status: History of recent travel: No Physical Exam Const: COMMON NORMALS: average body habitus, patient oriented x3 and well nourished GENERAL APPEARANCE: cooperative and anxious HENMT: COMMON NORMALS: normocephalic HEAD & SCALP: normal to inspection and normocephalic FACE & SINUS: normal facial exam Eye: COMMON NORMALS: conjunctivae normal GENERAL EYE: appearance normal, both eyes and all related structures CONJUNCTIVA: Yes conjunctivae normal Neck/C-Spine: COMMON NORMALS: no JVD Chest: COMMONS NORMALS: normal inspection of the chest Resp: COMMON NORMALS: normal respiratory effort and clear to auscultation bilaterally AUSCULTATION: clear to auscultation bilaterally Cardio: COMMON NORMALS: no JVD, regular rate and regular rhythm RATE: regular rate RHYTHM: regular rhythm GI: COMMON NORMALS: Normal to inspection, nondistended, normoactive bowel sounds present Extremity: COMMON NORMALS: normal to inspection and full ROM Neuro: COMMON NORMALS: patient oriented x3 Course Vital Signs: Vital signs: Vital Signs Temperature 98.1 F 03/26/21 06:34 Pulse Rate 47 L 03/26/21 09:37 Respiratory Rate 15 03/26/21 09:37 Blood Pressure 149/71 03/26/21 09:37 Pulse Oximetry 97 03/26/21 09:37 MDM - Male MDM Narrative: Medical decision making narrative: I discussed patient with Dr. Alvarenga and Dr. Simmons. Went over the labs. Radiology results. Dr. Simmons felt that we would try stronger pain medication can use Toradol follow-up as scheduled on Sunday for removal stone. Discussed with patient his and are agreeable to the plan. Lab Data: Labs: Lab Results 03/26/21 03/26/21 03/26/21 Range/Units 07:07 07:07 08:30 WBC 9.2 (4.0-10.0) 10^3/ uL RBC 4.52 (4.1-5.3) 10^6/u L Hgb 13.2 (11.7-16.6) g/dL Hct 40.0 L (42.0-52.0) % MCV 88.5 (80-94) fL MCH 29.2 (28.0-34.0) pg MCHC 33.0 (30.0-36.0) g/dL RDW 13.5 (12.1-15.1) % Plt Count 142 (130-400) 10^3/c mm MPV 10.6 H (7.4-10.4) fL Neut % (Auto) 59.4 % Lymph % (Auto) 26.0 % Mckenzie % (Auto) 8.7 % Eos % (Auto) 5.2 % Baso % (Auto) 0.5 % Neut # (Auto) 5.45 (1.8-7.7) 10^3/u L Lymph # (Auto) 2.4 (0.8-4.8) 10^3/u L Mckenzie # (Auto) 0.8 (0.2-0.9) 10^3/u L Eos # (Auto) 0.5 (0.0-0.8) 10^3/u L Baso # (Auto) 0.1 (0.0-0.1) 10^3/u L Nucleated RBC % (a uto) 0 % Nucleated RBCs # 0.0 /100WBC Sodium 141 (136-145) mmol/L Potassium 4.2 (3.5-5.1) mmol/L Chloride 104 (98-107) mmol/L Carbon Dioxide 28 (22-29) mmol/L Anion Gap 13.2 (5-19) BUN 19 (8-23) mg/dL Creatinine 0.7 (0.7-1.2) mg/dL GFR Calculation Not Reportable Glucose 93 (65-115) mg/dL Calculated Osmolal ity 294 (285-295) mOsm/k g Calcium 9.1 (8.5-10.5) mg/dL Urine Color Yellow (Yellow) Urine Appearance Clear (CLEAR) Urine pH 5 (5-7) Ur Specific Gravit y 1.020 (1.005-1.030) Urine Protein Neg (Negative) Urine Glucose (UA) Norm (Normal) Urine Ketones Negative (Negative) Urine Blood 2+ H (Negative) Urine Nitrate Negative (Negative) Urine Bilirubin Neg (Negative) Urine Urobilinogen Norm (Negative) mg/dL Ur Leukocyte Shelby ase Negative (Negative) Urine RBC 5-10 H (0-2) /hpf Urine WBC Rare (0-5) /hpf Ur Squamous Epith Cells None (0-5) /hpf Amorphous Sediment Not Reportable Urine Bacteria Trace (NONE) /hpf Discharge Plan Discharge Patient Disposition: Home Clinical Impression: Left ureteral calculus Condition: Stable Prescriptions: New Percocet 5-325 mg tablet 1 tab PO Q6H PRN (Reason: pain) Qty: 20 RF: 0 ketorolac 10 mg tablet 10 mg PO Q8H PRN (Reason: pain) 3 Days Qty: 10 RF: 0 Held celecoxib [Celebrex] 200 mg capsule 200 mg PO BID RF: 0 Hold Instructions: Resume on 03/29/21. Discontinued hydrocodone-acetaminophen 5-325 mg tablet 1 tab PO Q4H PRN (Reason: Pain) RF: 0 No Action primidone 50 mg PO BID RF: 0 lovastatin 40 mg tablet 40 mg PO DAILY RF: 0 aspirin 325 mg tablet 325 mg PO DAILY RF: 0 metoprolol succinate 50 mg tablet extended release 24 hr 50 mg PO BID RF: 0 ondansetron HCl [Zofran] 4 mg tablet 4 mg PO Q6H PRN (Reason: nausea and vomiting) Qty: 15 RF: 0 tamsulosin 0.4 mg capsule 0.4 mg PO DAILY Qty: 14 RF: 0 Discharge Orders: Discharge ED (Routine); Ordered 03/26/21 Ordered By: Oliverio Bonilla Referrals: Fabiano Woo MD [Primary Care Provider] - Discharge Diet: Usual diet Discharge Activity: Increase activity as tolerated Activity Restrictions/Additional Instructions: Follow-up with medical provider as directed. Take medications as prescribed. Return to the ER or your medical provider if condition worsens. Please read and understand discharge instructions. If any questions ask please. Can take Percocet and Toradol together as needed for pain. Follow-up Dr. Simmons Sunday at [facility] for stone removal. Coding Level of Care Code ED Manager Multicultural for Chg Fwd Exam Comprehensive Documented by User: Merlyn Alvarenga DO 03/26/21 09:21 HPI - Male Genitourinary General: Chief complaint: Urogenital-Male Stated complaint: Lower back pain. PT states poss kidney stone Time Seen by Provider: 03/26/21 06:33 PFSH ED PFSH: Medical History Diastolic heart failure HLD (hyperlipidemia) HTN (hypertension) 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 Prostate cancer Urolithiasis Nonobstructing left renal calculus. Surgical History H/O hernia repair H/O lithotripsy H/O prostatectomy Social History Quit status (tobacco): has quit using tobacco Year quit tobacco: 2019 Alcohol intake: never Household members: spouse Housing: House Marital status: History of recent travel: No Course Vital Signs: Vital signs: Vital Signs Temperature 98.1 F 03/26/21 06:34 Pulse Rate 47 L 03/26/21 09:37 Respiratory Rate 15 03/26/21 09:37 Blood Pressure 149/71 03/26/21 09:37 Pulse Oximetry 97 03/26/21 09:37 MDM - Male Lab Data: Labs: Lab Results 03/26/21 03/26/21 03/26/21 Range/Units 07:07 07:07 08:30 WBC 9.2 (4.0-10.0) 10^3/ uL RBC 4.52 (4.1-5.3) 10^6/u L Hgb 13.2 (11.7-16.6) g/dL Hct 40.0 L (42.0-52.0) % MCV 88.5 (80-94) fL MCH 29.2 (28.0-34.0) pg MCHC 33.0 (30.0-36.0) g/dL RDW 13.5 (12.1-15.1) % Plt Count 142 (130-400) 10^3/c mm MPV 10.6 H (7.4-10.4) fL Neut % (Auto) 59.4 % Lymph % (Auto) 26.0 % Mckenzie % (Auto) 8.7 % Eos % (Auto) 5.2 % Baso % (Auto) 0.5 % Neut # (Auto) 5.45 (1.8-7.7) 10^3/u L Lymph # (Auto) 2.4 (0.8-4.8) 10^3/u L Mckenzie # (Auto) 0.8 (0.2-0.9) 10^3/u L Eos # (Auto) 0.5 (0.0-0.8) 10^3/u L Baso # (Auto) 0.1 (0.0-0.1) 10^3/u L Nucleated RBC % (a uto) 0 % Nucleated RBCs # 0.0 /100WBC Sodium 141 (136-145) mmol/L Potassium 4.2 (3.5-5.1) mmol/L Chloride 104 (98-107) mmol/L Carbon Dioxide 28 (22-29) mmol/L Anion Gap 13.2 (5-19) BUN 19 (8-23) mg/dL Creatinine 0.7 (0.7-1.2) mg/dL GFR Calculation Not Reportable Glucose 93 (65-115) mg/dL Calculated Osmolal ity 294 (285-295) mOsm/k g Calcium 9.1 (8.5-10.5) mg/dL Urine Color Yellow (Yellow) Urine Appearance Clear (CLEAR) Urine pH 5 (5-7) Ur Specific Gravit y 1.020 (1.005-1.030) Urine Protein Neg (Negative) Urine Glucose (UA) Norm (Normal) Urine Ketones Negative (Negative) Urine Blood 2+ H (Negative) Urine Nitrate Negative (Negative) Urine Bilirubin Neg (Negative) Urine Urobilinogen Norm (Negative) mg/dL Ur Leukocyte Shelby ase Negative (Negative) Urine RBC 5-10 H (0-2) /hpf Urine WBC Rare (0-5) /hpf Ur Squamous Epith Cells None (0-5) /hpf Amorphous Sediment Not Reportable Urine Bacteria Trace (NONE) /hpf Discharge Plan Discharge Patient Disposition: Home Clinical Impression: Left ureteral calculus Condition: Stable Prescriptions: New Percocet 5-325 mg tablet 1 tab PO Q6H PRN (Reason: pain) Qty: 20 RF: 0 ketorolac 10 mg tablet 10 mg PO Q8H PRN (Reason: pain) 3 Days Qty: 10 RF: 0 Held celecoxib [Celebrex] 200 mg capsule 200 mg PO BID RF: 0 Hold Instructions: Resume on 03/29/21. Discontinued hydrocodone-acetaminophen 5-325 mg tablet 1 tab PO Q4H PRN (Reason: Pain) RF: 0 No Action primidone 50 mg PO BID RF: 0 lovastatin 40 mg tablet 40 mg PO DAILY RF: 0 aspirin 325 mg tablet 325 mg PO DAILY RF: 0 metoprolol succinate 50 mg tablet extended release 24 hr 50 mg PO BID RF: 0 ondansetron HCl [Zofran] 4 mg tablet 4 mg PO Q6H PRN (Reason: nausea and vomiting) Qty: 15 RF: 0 tamsulosin 0.4 mg capsule 0.4 mg PO DAILY Qty: 14 RF: 0 Discharge Orders: Discharge ED (Routine); Ordered 03/26/21 Ordered By: Oliverio Bonilla Referrals: Fabiano Woo MD [Primary Care Provider] - Discharge Diet: Usual diet Discharge Activity: Increase activity as tolerated Activity Restrictions/Additional Instructions: Follow-up with medical provider as directed. Take medications as prescribed. Return to the ER or your medical provider if condition worsens. Please read and understand discharge instructions. If any questions ask please. Can take Percocet and Toradol together as needed for pain. Follow-up Dr. Simmons Sunday at [facility] for stone removal. Coding Level of Care Code ED Manager Multicultural for Ada Fwd Exam Comprehensive
[2021-03-26] MEDS: morphine 4 mg/mL SDV 1 mL IVP (07:05)
[2021-03-26] MEDS: ondansetron 2 mg/ML SDV 2 mL 4 MG IVP (07:05)
[2021-03-26 07:12] VITALS: PULSE 56; RESP 18; O2SAT 93
[2021-03-26 07:14] VITALS: BP 189/75
--- NOTE | 2021-03-26 07:14 | XRR_ITS ---
PROCEDURE INFORMATION: Exam: XR Abdomen Exam date and time: 03/26/2021 7:14 AM Age: 85 years old Clinical indication: Abdominal pain; Flank; Left; Prior surgery; Surgery date: 6+ months; Additional info: Left sided stone TECHNIQUE: Imaging protocol: XR of the abdomen. Views: Frontal supine view of the abdomen. 1 View. COMPARISON: CR XR KUB [id number] 03/25/2021 7:38 AM FINDINGS: Tubes, catheters and devices: There are surgical clips overlying the pelvis. Gastrointestinal tract: Colonic constipation is present. Organs: There is a 7 mm calculus overlying the superior pole of the left renal shadow and a 9 mm calculus overlying the inferior pole of the left renal shadow. These are unchanged from the prior study. Bones/joints: There are L5 vertebroplasty changes. Mild lumbar dextroscoliosis. Degenerative changes are present in the visualized spine. XR/XR KUB portable [id number] IMPRESSION: 1. Calculi overlying the left renal shadow are unchanged from the prior study. 2. Colonic constipation is present.
[2021-03-26 07:22] LABS: Basophils # 0.1 10^3/uL (0.0-0.1); Basophils % 0.5 %; Eosinophils # 0.5 10^3/uL (0.0-0.8); Eosinophils % 5.2 %; Hemoglobin 13.2 g/dL (11.7-16.6); Lymphocytes # 2.4 10^3/uL (0.8-4.8); Mean Corpuscular Hemoglobin 29.2 pg (28.0-34.0); Mean Corpuscular Volume 88.5 fL (80-94); Mean Platelet Volume 10.6 fL (7.4-10.4); Monocytes # 0.8 10^3/uL (0.2-0.9); Monocytes % 8.7 %; Neutrophils # 5.45 10^3/uL (1.8-7.7); Neutrophils % 59.4 %; Nucleated Red Blood Cells % 0 %; Platelet Count 142 10^3/cmm (130-400); Red Blood Count 4.52 10^6/uL (4.1-5.3); Red Cell Distribution Width 13.5 % (12.1-15.1); White Blood Count 9.2 10^3/uL (4.0-10.0)
[2021-03-26] MEDS: HYDROmorphone 1 mg/mL INJ 1 mL 0.5 MG IVP (07:36)
[2021-03-26 07:45] LABS: Anion Gap 13.2 (5-19); Blood Urea Nitrogen 19 mg/dL (8-23); Calcium 9.1 mg/dL (8.5-10.5); Carbon Dioxide 28 mmol/L (22-29); Chloride 104 mmol/L (98-107); Glucose 93 mg/dL (65-115); Osmolality Calculated 294 mOsm/kg (285-295); Potassium 4.2 mmol/L (3.5-5.1); Sodium 141 mmol/L (136-145)
[2021-03-26 07:48] VITALS: BP 201/83; RESP 15; O2SAT 93
[2021-03-26 09:12] LABS: Add Urine Culture? No; Add Urine Microscopic? YES; Bacteria Urine TRACE /hpf; Bilirubin Urine Neg (Negative); Blood Urine 2+ (Negative); Glucose Urine UA Norm (Normal); Ketones Urine Negative (Negative); Leukocyte Esterase Urine Negative (Negative); Nitrate Urine Negative (Negative); Protein Urine Neg (Negative); Urine Appearance Clear (CLEAR); Urine Color Yellow (Yellow); Urobilinogen Urine Norm (Negative); WBC Urine RARE /hpf (0-5); pH Urine 5 (5-7)
[2021-03-26 09:37] VITALS: BP 149/71; PULSE 47; RESP 15; O2SAT 97
== END 2021-03-26 09:38 | disposition home or self-care (01) ==
PROVIDERS: Emergency Provider Nurse Practitioner Family; PCP Family Medicine
DX: N20.1 Calculus of ureter (principal); Z79.82 Long term (current) use of aspirin; I11.0 Hypertensive heart disease with heart failure; I50.30 Unspecified diastolic (congestive) heart failure; E78.5 Hyperlipidemia, unspecified; Z85.46 Personal history of malignant neoplasm of prostate; Z87.891 Personal history of nicotine dependence
CPT/HCPCS: 74018; 80048; 81001; 85025; 96374; 96375; 99284; J1170; J2270; J2405

== ENCOUNTER 2021-03-28 11:41 | Day surgery (SDC) | payer MEDICARE, BC, SELFPAY ==
[2021-03-25 15:16] VITALS: BMI 31.0
[2021-03-28] VITALS (15 sets, daily range): BP systolic 171–205; BP diastolic 80–104; PULSE 51–71; RESP 12–21; TEMP 36.1–36.6; O2SAT 94–99
--- NOTE | 2021-03-28 | SCC_ITS ---
Procedure Done: 1. Cystoscopy with left retrograde ureteropyelogram 2. Left ureteroscopy, laser lithotripsy and stent 45.2 seconds of fluoroscopic guidance, for a cumulative dose of 13.57 mGy, was provided to Dr. Simmons by the radiology department. C-arm images of the abdomen were saved for the patient's permanent record. [facility]
--- NOTE | 2021-03-28 12:00 | SC_ITS ---
WS: [id number] C-ARM RADIOGRAPHS ABDOMEN; 4 IMAGES HISTORY: Left ureteroscopy COMPARISON: 03/26/2021 Retrograde evaluation of the LEFT ureter. There is a stricture extending over several centimeters in the distal ureter just below the pelvic rim. Filling defect in the proximal ureter consistent with kn own ureteral stone. LEFT ureteral stent catheters placed. SC/C-arm FL for Urology IMPRESSION: Intraoperative imaging during placement of a LEFT ureteral stent.
--- NOTE | 2021-03-28 12:39 | ANES.PREANE2 ---
Pre-Anesthetic Assessment Pre-Anesthetic Assessment: Height/Weight: Height 1.73 m Weight 92.533 kg Temp Pulse Resp BP Pulse Ox 97.8 F 51 L 18 203/104 95 03/28/21 12:11 03/28/21 12:11 03/28/21 12:11 03/28/21 12:12 03/28/21 12:11 Preop Diagnosis: Large left ureteral calculus with obstruction Proposed Procedure: Operation Date: 03/28/21 13:25 Proposed Procedures p Laser Lithotripsy 08770 51067-58 N20.9(Not Applicable) - Jose Simmons MD s Cystoscopy(Not Applicable) - Jose Simmons MD s Retrograde Pyelogram(Left) - Jose Simmons MD s Ureteroscopy(Not Applicable) - Jose Simmons MD s Ureteral Stent Placement(Not Applicable) - Jose Simmons MD Familial anesthetic complications: none Was Beta Teena taken within 24 hours: Yes Last intake: Intake Last Liquid Date 03/27/21 Last Solid Date 03/27/21 Social: Social History: No alcohol and No tobacco Airway: MP: 2 Dentition: False Pulmonary: Comments: covid June CV/HEM: CV/HEM: CHF Comments: Recent echocardiogram from April 2020 shows an EF of 60%, moderate LVH, grade 2 diastolic dysfunction, moderately dilated right atria and left atria with mild aortic stenosis with mean gradient of 4.6. Anesthetic Plan: ASA status: 4 Anesthesia: General Risk of > 500 ml blood loss (7ml/kg in children): No PFSH Anesthesia PFSH: Medical History Diastolic heart failure HLD (hyperlipidemia) HTN (hypertension) 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 Prostate cancer Urolithiasis Nonobstructing left renal calculus. Surgical History H/O hernia repair H/O lithotripsy H/O prostatectomy Social History Quit status (tobacco): has quit using tobacco Year quit tobacco: 2019 Alcohol intake: never Household members: spouse Housing: House Marital status: History of recent travel: No Data Anesthesia Cardiac Studies: No Data to Display
[2021-03-28] MEDS: sodium chloride 0.9% 1,000 ML 30 ML IV (15:00)
--- NOTE | 2021-03-28 15:17 | W.PM.OPSUD ---
Surgery/Procedure H&P Update DATE OF PROCEDURE: March 28, 2021 DATE H&P PERFORMED: 03/25/21 H&P UPDATE INFORMATION: I have reviewed H&P completed within last 30 days, I have examined patient prior to procedure, No changes to prior documentation and H&P is in [facility] on date indicated PREOP DIAGNOSIS: Large left ureteral calculus with obstruction PLANNED PROCEDURE: Operation Date: 03/28/21 13:25 Proposed Procedures p Laser Lithotripsy 59962 21610-30 N20.9(Not Applicable) - Jose Simmons MD s Cystoscopy(Not Applicable) - MD camryn Sebastian Retrograde Pyelogram(Left) - MD camryn Sebastian Ureteroscopy(Not Applicable) - Jose Simmons MD s Ureteral Stent Placement(Not Applicable) - Jose Simmons MD
[2021-03-28] MEDS: midazolam 1 mg/mL INJ 2 mL 2 MG IVP (15:23)
[2021-03-28] MEDS: levofloxacin-dextrose 5 % 500 MG/100 ML PREMIX 100 MG IV (16:30)
[2021-03-28] MEDS: iohexol 300 mg/mL 50 mL Btl (OR ONLY) XX (17:20)
--- NOTE | 2021-03-28 17:57 | PM.OP ---
Operative Report Date of procedure: March 28, 2021 Pre-op Diagnosis: Large left ureteral calculus with obstruction Post-op diagnosis: same Procedure Done: 1. Cystoscopy with left retrograde ureteropyelogram 2. Left ureteroscopy, laser lithotripsy and stent Implants: 7 Spanish by 30 cm double-pigtail stent without string Pathology: Stone fragments Surgeon: Troy Anesthesia: General Estimated blood loss: Minimal Urine output: Not measured Complications: None Findings: Stone encountered in the expected position and completely fragmented with 365 ?m thulium superpulse laser fiber utilizing both rigid and flexible ureterorenoscopy. Stent left indwelling at the completion of the procedure. Condition: stable Disposition: PACU Brief History: Mr. Gallardo is an 85-year-old white male recently diagnosed with a large left mid ureteral stone with obstruction. Has had a couple visits to the emergency department for pain control. Scheduled for endoscopy and laser lithotripsy. Procedure: After routine preoperative evaluation examination and obtaining informed consent he was taken to the operating suite on 03/28/2021 where general anesthesia was administered without difficulty after appropriate timeout was performed, SCDs confirmed to be functioning, preoperative antibiotics administered, beta-armando protocol confirmed. Prepped and draped in usual sterile fashion in dorsolithotomy position paying careful attention to avoiding pressure points. 21 Spanish cystoscope with 30 degree lens was introduced into the urethra meatus and advanced into the bladder under videoscopy. The bladder was systematically examined with no pathology identified. An 8 Spanish cone-tip catheter was intubated into the left ureteral orifice for a left retrograde ureteropyelogram which demonstrated a slightly narrowed area in the distal ureter approximately 4 cm above the left ureteral orifice, filling defect consistent with a stone in the expected position, and a dilated ureter and renal collecting system proximal to the stone. A flexible tip guidewire was advanced up the left ureter bypassing the stone and curling in the upper pole calyx. The distal ureter was then dilated with a 15 Spanish 10 cm balloon which bridge the gap to the narrowed area seen on the retrograde pyelogram and easily dilated it. The balloon was removed and a second guidewire was passed. The first wire was secured to the drapes as a safety wire and the second wire was used as a working wire. A semirigid ureteroscope was then advanced over the guidewire up to the level of the stone that was encountered in its expected position. There was a slight narrowed area just below the stone likely from the wedge site. A 365 ?m thulium superpulse laser fiber was utilized to fragment the stone into mostly sand and very tiny granular fragments. A couple of the larger pieces migrated into the renal pelvis. The wire was replaced and a flexible ureteroscope was advanced back over the guidewire into the renal pelvis and the wire removed. The remaining fragments that had migrated into the renal pelvis were identified and fragmented with the same laser. At the completion of the fragmentation process there remained no large fragments and most of it was simply ren very granular material. The calyceal system was inspected and no additional stone fragments of any consequence were identified. The ureter was inspected as the scope was removed and was intact with no significant trauma. The cystoscope was then backloaded over the safety wire and a 7 Spanish by 30 cm double-pigtail stent without string was advanced over the guidewire through the cystoscope into appropriate position as confirmed via fluoroscopy and cystoscopy. The bladder was drained. A few fragments that had migrated into the bladder were sent for pathologic evaluation. He tolerated procedure well without complications and was awakened in the operating room and returned to recovery in stable condition. PLANS: 1. Anticipate discharge from outpatient surgery 2. Follow-up in about 2 weeks with a KUB for possible cystoscopy and stent removal 3. Reviewed the findings with the patient's in detail.
[2021-03-28] MEDS: ondansetron 2 mg/ML SDV 2 mL 4 MG IVP (18:07)
[2021-03-28] MEDS: hyDRALAzine 20 mg/mL INJ 1 mL 5 MG IVP ×2 (18:09→18:26)
[2021-03-28] MEDS: fentaNYL 50 mcg/mL INJ 2mL IVP ×2 (18:19→18:28)
--- NOTE | 2021-03-28 18:21 | P.PCN_ITS ---
PACU note PACU note: VSS, Good respiratory effort, report to SUPPLEMENTAL NURSE Post-Anesthesia Exam: awake
--- NOTE | 2021-03-28 18:21 | PM.PACU ---
PACU note PACU note: VSS, Good respiratory effort, report to W[employer]OTH Post-Anesthesia Exam: awake
--- NOTE | 2021-03-28 19:00 | ANE.PACU2 ---
Inpatient post-anesthesia follow up: Airway intact: Yes Vital signs: Temperature 97.8 F Pulse Rate 71 Respiratory Rate 18 Blood Pressure 185/90 Pulse Oximetry 94 Oxygen Delivery Me thod Room Air Oxygen Flow Rate 8 Fraction of Inspir ed Oxygen Hydration adequate: Yes Nausea and vomiting: No Pain level: 3 Mental status: Baseline
[2021-03-28] MEDS: oxyCODONE-APAP 5-325 mg Tablet 1 TAB PO (19:30)
[2021-04-01 00:38] LABS: Stone Source LEFT URETERAL STONE
== END 2021-03-28 20:00 | disposition home or self-care (01) ==
PROVIDERS: PCP Family Medicine; Visit Provider Urology
PROC: (CPT 52356; principal; 2021-03-28 13:05)
PROC: 0TJB8ZZ Inspection of Bladder, Via Natural or Artificial Opening Endoscopic (ICD-10-PCS; CPT 52000; 2021-03-28 13:05)
PROC: (CPT 74420; 2021-03-28 13:05)
PROC: 0TJ98ZZ Inspection of Ureter, Via Natural or Artificial Opening Endoscopic (ICD-10-PCS; CPT 52351; 2021-03-28 13:05)
PROC: (CPT 50605; 2021-03-28 13:05)
DX: N20.1 Calculus of ureter (principal); Z86.16 Personal history of COVID-19; I11.0 Hypertensive heart disease with heart failure; I50.30 Unspecified diastolic (congestive) heart failure; E78.5 Hyperlipidemia, unspecified; Z85.46 Personal history of malignant neoplasm of prostate; Z87.891 Personal history of nicotine dependence; Z79.82 Long term (current) use of aspirin
CPT/HCPCS: 52356; 76000; 82365; 88300; C2625; J0360; J1100; J1956; J2250; J2405; J2704; J2710; J3010; J3490; J7030

== ENCOUNTER 2021-03-30 00:07 | Emergency (ER) | payer MEDICARE, BC, SELFPAY ==
[2021-03-30 00:15] VITALS: BP 142/90; PULSE 97; RESP 20; TEMP 36.4; O2SAT 94; BMI 31.0
[2021-03-30 00:29] VITALS: BP 146/75; PULSE 76; RESP 20; O2SAT 94
--- NOTE | 2021-03-30 00:29 | XRR_ITS ---
PROCEDURE INFORMATION: Exam: XR Abdomen Exam date and time: 03/30/2021 12:29 AM Age: 85 years old Clinical indication: Prior surgery; Surgery type: Kyphoplasty. Ureteral stent. ; Patient HX: Constipation x several days. ; Additional info: Constipated TECHNIQUE: Imaging protocol: XR of the abdomen. Views: Frontal supine view of the abdomen. 1 View. COMPARISON: 1. CR (ABDOMEN, ) 03/26/2021 7:31 AM 2. CR XR KUB [id number] 03/25/2021 7:[address] kidney stone [id number] 03/24/2021 5:34 AM 4. CR XR KUB [id number] 02/02/2021 12:44 PM FINDINGS: Tubes, catheters and devices: Left ureteral stent. Gastrointestinal tract: Two borderline dilated loops of small bowel. Bones/joints: L5 kyphoplasty. XR/XR KUB portable [id number] IMPRESSION: Two borderline dilated loops of small bowel.
--- NOTE | 2021-03-30 00:30 | ED_ITS ---
HPI - Abdominal Pain General: Chief Complaint: Abdominal Pain Stated Complaint: No BM Time Seen by Provider: 03/30/21 00:16 History of Present Illness: HPI narrative: Patient is a 85-year-old male comes to the ED with abdominal pain. Patient states he has not had a bowel movement in the last week. He was recently seen here in the ED on March 24 was diagnosed with a kidney stone. He had cystoscopy done on March [address] Simmons to remove stone. Patient says he has been taking some Percocet at home to help with kidney stone pain. Since taking pain meds he says he is not had a bowel movement in almost a week. He is complaining of having generalized abdominal pain that he describes as being mild and rates it a 3 out of 10. Denies any fever, chills, nausea/vomiting, dysuria or hematuria. He states he feels like he has to have a bowel movement but has been unable to. He has been taking MiraLAX and stool softeners daily but that has not helped. Patient did say he is able to eat and drink still without any nausea or vomiting. Associated Symptoms: Reports constipation; Denies chills, diarrhea, dysuria, fever(s), hematochezia, hematuria, nausea and vomiting Review of Systems Const: Denies: fever(s), chills or fatigue Eyes: Denies: change in vision or eye discomfort ENMT: Denies: throat pain, odynophagia, nasal discharge or nasal congestion Card: Denies: chest pain, palpitations, edema, swelling of feet/ankles, dyspnea on exertion or orthopnea Resp: Denies: dyspnea, productive cough or non-productive cough GI: Reports: abdominal pain and constipation; Denies: nausea, vomiting, diarrhea or hematochezia : Denies: flank pain, difficulty urinating, dysuria or hematuria Musc: Denies: neck pain, back pain or extremity swelling Skin/Breast: Denies: rash or new lesions Neuro: Denies: headache(s), numbness in extremities or weakness in extremities PFSH ED PFSH: Medical History Diastolic heart failure HLD (hyperlipidemia) HTN (hypertension) 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 Prostate cancer Urolithiasis Nonobstructing left renal calculus. Surgical History H/O hernia repair H/O lithotripsy H/O prostatectomy Social History Quit status (tobacco): has quit using tobacco Year quit tobacco: 2019 Alcohol intake: never Household members: spouse Housing: House Marital status: History of recent travel: No Physical Exam Const: COMMON NORMALS: no acute distress, patient oriented x3 and alert GENERAL APPEARANCE: cooperative and comfortable HENMT: COMMON NORMALS: normocephalic HEAD & SCALP: normocephalic MOUTH: Normal oral and palatal mucosa present THROAT: posterior oropharynx normal and uvula midline Neck/C-Spine: COMMON NORMALS: supple GENERAL: Yes normal visual inspection Resp: COMMON NORMALS: normal respiratory effort, No retractions, No use of accessory muscles and clear to auscultation bilaterally AUSCULTATION: clear to auscultation bilaterally Cardio: COMMON NORMALS: regular rate, regular rhythm, S1 normal heart sound present, S2 normal heart sound present, No gallops present (Cardio), No clicks present (Cardio), No murmurs present (Cardio) and Peripheral pulses 2+ throughout RATE: regular rate RHYTHM: regular rhythm HEART SOUNDS: S1 normal heart sound present and S2 normal heart sound present PERIPHERAL PULSES: Peripheral pulses 2+ throughout GI: COMMON NORMALS: Normal to inspection, nondistended, normoactive bowel sounds present, Soft to palpation and no masses PALPATION: Yes Soft to palpation and Yes Tenderness to palpation present (GI) (Generalized tenderness throughout the abdomen) : COMMON NORMALS: Yes no CVA tenderness BLADDER/KIDNEY EXAM: Yes no CVA tenderness Back/Pelvis: COMMON NORMALS: no CVA tenderness Extremity: COMMON NORMALS: normal to inspection Neuro: COMMON NORMALS: patient oriented x3 SENSORIUM/ORIENTATION: Yes alert GAIT: Yes Normal gait present Skin: GENERAL SKIN EXAM: dry skin Course Reevaluation(s): Reevaluation #1: Patient was given a milk of molasses enema and he was able to pass a large amount of hard stool and states he is feeling a lot better now. The nurse who performed the milk of molasses enema said that patient passed a large round mass of hard stool. Patient said he was feeling a lot better and was ready to go home. Time: 03:14 Vital Signs: Vital signs: Vital Signs Temperature 97.6 F 03/30/21 00:15 Pulse Rate 85 03/30/21 01:59 Respiratory Rate 16 03/30/21 01:59 Blood Pressure 165/75 03/30/21 01:59 Pulse Oximetry 94 03/30/21 01:59 MDM - Abdominal Pain MDM Narrative: Medical decision making narrative: Patient is an 85-year-old male comes to the ED with abdominal pain and constipation. Patient says he has not had a bowel movement in almost a week. He is currently been dealing with a kidney stone and has been taking Percocet to help with pain, which has caused his current bowel movement issue. Patient appears nontoxic and is in no acute distress. He has some mild generalized tenderness upon palpation of the abdomen. His vitals are stable. CBC and CMP are unremarkable. UA shows a lot of red blood cells which is not surprising since patient just had cystoscopy done on March 28. KUB showed 2 borderline dilated loops of small bowel. CT of abdomen showed the ureteral stent that was in place and it did note possible low-grade ileus. No fecal impaction noted. Patient was given a milk of molasses enema and he passed a large amount of hard stool. Nursing performed the milk of molasses enema said that patient passed a large ball of hard stool. Patient says he feels a lot better after finally having a BM and is ready to go home. I told patient to continue taking MiraLAX and stool softener. Follow-up with PCP in 7 to 10 days for reevaluation. Return to ED precautions given. Patient understood and agree with plan. Lab Data: Attestation: I reviewed the patient's lab results. Labs: Lab Results 03/30/21 03/30/21 03/30/21 Range/Units 00:40 00:40 01:25 WBC 10.3 H (4.0-10.0) 10^3/ uL RBC 4.63 (4.1-5.3) 10^6/u L Hgb 13.5 (11.7-16.6) g/dL Hct 40.9 L (42.0-52.0) % MCV 88.3 (80-94) fL MCH 29.2 (28.0-34.0) pg MCHC 33.0 (30.0-36.0) g/dL RDW 13.2 (12.1-15.1) % Plt Count 177 (130-400) 10^3/c mm MPV 10.5 H (7.4-10.4) fL Neut % (Auto) 64.0 % Lymph % (Auto) 23.8 % Campbell % (Auto) 9.6 % Eos % (Auto) 1.9 % Baso % (Auto) 0.3 % Neut # (Auto) 6.59 (1.8-7.7) 10^3/u L Lymph # (Auto) 2.5 (0.8-4.8) 10^3/u L Campbell # (Auto) 1.0 H (0.2-0.9) 10^3/u L Eos # (Auto) 0.2 (0.0-0.8) 10^3/u L Baso # (Auto) 0.0 (0.0-0.1) 10^3/u L Nucleated RBC % (a uto) 0 % Nucleated RBCs # 0.0 /100WBC Sodium 139 (136-145) mmol/L Potassium 4.0 (3.5-5.1) mmol/L Chloride 103 (98-107) mmol/L Carbon Dioxide 21 L (22-29) mmol/L Anion Gap 19.0 (5-19) BUN 19 (8-23) mg/dL Creatinine 1.0 (0.7-1.2) mg/dL GFR Calculation Not Reportable Glucose 111 (65-115) mg/dL Calculated Osmolal ity 291 (285-295) mOsm/k g Calcium 9.3 (8.5-10.5) mg/dL Total Bilirubin 0.5 (0.15-1.2) mg/dL AST 17 (0-40) U/L ALT 13 (0-41) U/L Alkaline Phosphata se 114 (40-130) IU/L Total Protein 7.0 (6.6-8.7) g/dL Albumin 4.4 (3.5-5.2) g/dL Globulin 2.6 (1.3-4.6) g/dL Lipase 20 (13-60) U/L Urine Color Red (Yellow) Urine Appearance Cloudy (CLEAR) Urine pH 6.5 (5-7) Ur Specific Gravit y 1.015 (1.005-1.030) Urine Protein 3+ H (Negative) Urine Glucose (UA) Norm (Normal) Urine Ketones Negative (Negative) Urine Blood 3+ H (Negative) Urine Nitrate Negative (Negative) Urine Bilirubin Neg (Negative) Urine Urobilinogen Norm (Negative) mg/dL Ur Leukocyte Shelby ase 1+ H (Negative) Urine RBC Too numerous to c nt H (0-2) /hpf Urine WBC 15-25 H (0-5) /hpf Ur Squamous Epith Cells 0-4 H (0-5) /hpf Amorphous Sediment Not Reportable Urine Bacteria Trace (NONE) /hpf Imaging Data ^: KUB: Attestation: I personally reviewed and interpreted this imaging study as follows: Radiologist's impression: [employer] [address] XRay Report Signed Patient: Arron Gallardo Unit #: [id number] : 1935 Age/Sex: 85 / M ADM Date: 03/30/21 Loc: ER Room/Bed: Attending Dr: Ordering Provider/Ordering MD: Jorge Rowan Date of Service: 03/30/21 Procedure(s): XR KUB portable [id number] Accession Number(s): [id number] Report Number: [id number] PROCEDURE INFORMATION: Exam: XR Abdomen Exam date and time: 03/30/2021 12:29 AM Age: 85 years old Clinical indication: Prior surgery; Surgery type: Kyphoplasty. Ureteral stent. ; Patient HX: Constipation x several days. ; Additional info: Constipated TECHNIQUE: Imaging protocol: XR of the abdomen. Views: Frontal supine view of the abdomen. 1 View. COMPARISON: 1. CR (ABDOMEN, ) 03/26/2021 7:31 AM 2. CR XR KUB [id number] 03/25/2021 7:[address] kidney stone [id number] 03/24/2021 5:34 AM 4. CR XR KUB [id number] 02/02/2021 12:44 PM FINDINGS: Tubes, catheters and devices: Left ureteral stent. Gastrointestinal tract: Two borderline dilated loops of small bowel. Bones/joints: L5 kyphoplasty. XR/XR KUB portable [id number] IMPRESSION: Two borderline dilated loops of small bowel. Dictated By: Rolf Craven MD Signed By: Rolf Craven MD Signed Date/Time: 03/30/21204 DD/ 4 CT Abd/Pel: Attestation: I personally reviewed and interpreted this imaging study as follows: Radiologist's impression: [address] [address] [address] Scan Report Signed Patient: Arron Gallardo Unit #: [id number] : 1935 Age/Sex: 85 / M ADM Date: 03/30/21 Loc: ER Room/Bed: Attending Dr: Ordering Provider/Ordering MD: Jorge Rowan Date of Service: 03/30/21 Procedure(s): CT abdomen pelvis w con* [id number] Accession Number(s): [id number] Report Number: [id number] PROCEDURE INFORMATION: Exam: CT Abdomen And Pelvis With Contrast Exam date and time: 03/30/2021 1:15 AM Age: 85 years old Clinical indication: Abdominal pain; Generalized; Prior surgery; Surgery type: Kyphoplasty. Ureteral stent. ; Patient HX: Abd pain with constipation. ; Additional info: Abdominal pain, constipated TECHNIQUE: Imaging protocol: Computed tomography of the abdomen and pelvis with contrast. Radiation optimization: All CT scans at this facility use at least one of these dose optimization techniques: automated exposure control; mA and/or kV adjustment per patient size (includes targeted exams where dose is matched to clinical indication); or iterative reconstruction. Contrast material: OMNI 350; Contrast volume: 95 ml; Contrast route: INTRAVENOUS (IV); COMPARISON: 1. CT kidney stone [id number] 03/24/2021 5:34 AM 2. CR (ABDOMEN, ) 03/30/2021 12:31 AM RADIATION DOSE METRICS: Total DLP (mGy-cm): 2398.25 FINDINGS: Lungs: Calcified right-sided pulmonary granulomas. Heart: Mild cardiomegaly. Liver: Hepatic cysts measuring up to 11 mm. Gallbladder and bile ducts: No calcified stones. No pericholecystic inflammatory changes. No ductal dilation. Pancreas: Normal. No ductal dilation. Spleen: Calcified splenic granulomas. Adrenal glands: Normal. No mass. Kidneys and ureters: Mild left hydronephrosis with ureteral stent in place. Minimal air in the left renal collecting system, likely refluxed from the bladder. 14 mm calculus in the left renal pelvis. 5 mm right renal calculus without obstruction. Stomach and bowel: Couple of minimally dilated loops of small bowel, likely due to focal ileus. Colonic diverticulosis. Appendix: No evidence of acute appendicitis. Intraperitoneal space: No free air. No significant fluid collection. Vasculature: Vascular calcifications. Lymph nodes: No enlarged lymph nodes. Urinary bladder: Minimal air in the urinary bladder. Reproductive: Unremarkable as visualized. Bones/joints: L5 kyphoplasty. Soft tissues: Unremarkable. CT/CT abdomen pelvis w con* [id number] IMPRESSION: 1. Mild left hydronephrosis with ureteral stent in place. 2. Minimal air in the left renal collecting system, likely refluxed from the bladder. Emphysematous pyelitis cannot be completely excluded. 3. 14 mm calculus in the left renal pelvis. 4. Couple of minimally dilated loops of small bowel, likely due to focal ileus. A low-grade obstruction cannot be completely excluded. 5. 5 mm right renal calculus without obstruction. Radiation Dose CTDIVOL = (mGy): DLP = 2398.25 (mGy-cm) Dictated By: Rolf Craven MD Signed By: Rolf Craven MD Signed Date/Time: 03/30/21221 DD/ 0 Discharge Plan Discharge Patient Disposition: Home Clinical Impression: Constipation Qualifiers: Constipation type: drug induced constipation Qualified Code(s): K59.03 - Drug induced constipation Condition: Stable Prescriptions: No Action primidone 50 mg PO BID RF: 0 lovastatin 40 mg tablet 40 mg PO DAILY RF: 0 celecoxib [Celebrex] 200 mg capsule 200 mg PO BID RF: 0 Hold Instructions: Resume on 03/29/21. aspirin 325 mg tablet 325 mg PO DAILY RF: 0 metoprolol succinate 50 mg tablet extended release 24 hr 50 mg PO BID RF: 0 ondansetron HCl [Zofran] 4 mg tablet 4 mg PO Q6H PRN (Reason: nausea and vomiting) Qty: 15 RF: 0 tamsulosin 0.4 mg capsule 0.4 mg PO DAILY Qty: 14 RF: 0 Percocet 5-325 mg tablet 1 tab PO Q6H PRN (Reason: pain) Qty: 20 RF: 0 Discharge Orders: Discharge ED (Routine); Ordered 03/30/21 Ordered By: Jorge Rowan Referrals: Fabiano Woo MD [Primary Care Provider] - Discharge Diet: Regular Discharge Activity: Resume usual activity Patient Instructions: Constipation (ED), High Fiber Diet (ED) Activity Restrictions/Additional Instructions: Follow-up with medical provider as directed and 5 to 7 days for reevaluation. Continue taking your MiraLAX and stool softener daily. Drink plenty of water and stay hydrated. Also continue taking all previously prescribed home medications. Return to the ER or your medical provider if condition worsens. Please read and understand discharge instructions. Thank you for choosing [facility] for your healthcare needs today. Please realize this is an emergency room and that we are providing you with a medical screening exam and this may not be complete and all inclusive of all the testing and or work up that you may need to determine your ailment or severity of your illness. It is very important that you follow up as instructed or that you return to the Emergency Department should you have concerns or if your condition changes or worsens in any way. Coding Level of Care Code ED [employer] Acquisition Coordinator for [employer] Fwd Exam Comprehensive
[2021-03-30 00:55] LABS: Basophils % 0.3 %; Eosinophils # 0.2 10^3/uL (0.0-0.8); Eosinophils % 1.9 %; Hematocrit 40.9 % (42.0-52.0); Hemoglobin 13.5 g/dL (11.7-16.6); Lymphocytes # 2.5 10^3/uL (0.8-4.8); Lymphocytes % 23.8 %; Mean Corpuscular Hemoglobin 29.2 pg (28.0-34.0); Mean Corpuscular Volume 88.3 fL (80-94); Mean Platelet Volume 10.5 fL (7.4-10.4); Monocytes % 9.6 %; Neutrophils # 6.59 10^3/uL (1.8-7.7); Nucleated Red Blood Cells % 0 %; Platelet Count 177 10^3/cmm (130-400); Red Blood Count 4.63 10^6/uL (4.1-5.3); Red Cell Distribution Width 13.2 % (12.1-15.1); White Blood Count 10.3 10^3/uL (4.0-10.0)
[2021-03-30 01:10] LABS: Alanine Aminotransferase 13 U/L (0-41); Albumin Level 4.4 g/dL (3.5-5.2); Alkaline Phosphatase 114 IU/L (40-130); Aspartate Amino Transferase 17 U/L (0-40); Blood Urea Nitrogen 19 mg/dL (8-23); Calcium 9.3 mg/dL (8.5-10.5); Carbon Dioxide 21 mmol/L (22-29); Chloride 103 mmol/L (98-107); Globulin 2.6 g/dL (1.3-4.6); Glucose 111 mg/dL (65-115); Lipase 20 U/L (13-60); Osmolality Calculated 291 mOsm/kg (285-295); Sodium 139 mmol/L (136-145); Total Bilirubin 0.5 mg/dL (0.15-1.2)
--- NOTE | 2021-03-30 01:15 | CTR_ITS ---
PROCEDURE INFORMATION: Exam: CT Abdomen And Pelvis With Contrast Exam date and time: 03/30/2021 1:15 AM Age: 85 years old Clinical indication: Abdominal pain; Generalized; Prior surgery; Surgery type: Kyphoplasty. Ureteral stent. ; Patient HX: Abd pain with constipation. ; Additional info: Abdominal pain, constipated TECHNIQUE: Imaging protocol: Computed tomography of the abdomen and pelvis with contrast. Radiation optimization: All CT scans at this facility use at least one of these dose optimization techniques: automated exposure control; mA and/or kV adjustment per patient size (includes targeted exams where dose is matched to clinical indication); or iterative reconstruction. Contrast material: OMNI 350; Contrast volume: 95 ml; Contrast route: INTRAVENOUS (IV); COMPARISON: 1. CT kidney stone [id number] 03/24/2021 5:34 AM 2. CR (ABDOMEN, ) 03/30/2021 12:31 AM RADIATION DOSE METRICS: Total DLP (mGy-cm): 2398.25 FINDINGS: Lungs: Calcified right-sided pulmonary granulomas. Heart: Mild cardiomegaly. Liver: Hepatic cysts measuring up to 11 mm. Gallbladder and bile ducts: No calcified stones. No pericholecystic inflammatory changes. No ductal dilation. Pancreas: Normal. No ductal dilation. Spleen: Calcified splenic granulomas. Adrenal glands: Normal. No mass. Kidneys and ureters: Mild left hydronephrosis with ureteral stent in place. Minimal air in the left renal collecting system, likely refluxed from the bladder. 14 mm calculus in the left renal pelvis. 5 mm right renal calculus without obstruction. Stomach and bowel: Couple of minimally dilated loops of small bowel, likely due to focal ileus. Colonic diverticulosis. Appendix: No evidence of acute appendicitis. Intraperitoneal space: No free air. No significant fluid collection. Vasculature: Vascular calcifications. Lymph nodes: No enlarged lymph nodes. Urinary bladder: Minimal air in the urinary bladder. Reproductive: Unremarkable as visualized. Bones/joints: L5 kyphoplasty. Soft tissues: Unremarkable. CT/CT abdomen pelvis w con* [id number] IMPRESSION: 1. Mild left hydronephrosis with ureteral stent in place. 2. Minimal air in the left renal collecting system, likely refluxed from the bladder. Emphysematous pyelitis cannot be completely excluded. 3. 14 mm calculus in the left renal pelvis. 4. Couple of minimally dilated loops of small bowel, likely due to focal ileus. A low-grade obstruction cannot be completely excluded. 5. 5 mm right renal calculus without obstruction. Radiation Dose CTDIVOL = (mGy): DLP = 2398.25 (mGy-cm)
[2021-03-30] MEDS: iohexol 300 mg/mL 100 mL Btl IV (01:31)
[2021-03-30 01:56] LABS: Specific Gravity, Urine 1.015 (1.005-1.030); Urine Appearance Cloudy (CLEAR); Urine Color Red (Yellow); pH Urine 6.5 (5-7)
[2021-03-30 01:57] LABS: Add Urine Culture? Yes; Bacteria Urine TRACE /hpf; Bilirubin Urine Neg (Negative); Blood Urine 3+ (Negative); Glucose Urine UA Norm (Normal); Ketones Urine Negative (Negative); Leukocyte Esterase Urine 1+ (Negative); Nitrate Urine Negative (Negative); Protein Urine 3+ (Negative); RBC Urine TOO NUMEROUS TO CNT /hpf (0-2); Squamous Epithelial Cell Urine 0-4 /hpf (0-5); Urobilinogen Urine Norm (Negative); WBC Urine 15-25 /hpf (0-5)
[2021-03-30 01:59] VITALS: BP 165/75; PULSE 85; RESP 16; O2SAT 94
[2021-03-30 03:34] VITALS: BP 164/81; PULSE 102; RESP 22; O2SAT 95
== END 2021-03-30 03:25 | disposition home or self-care (01) ==
PROVIDERS: Emergency Provider Physician Assistant; PCP Family Medicine
DX: K59.03 Drug induced constipation (principal); Z79.82 Long term (current) use of aspirin; I11.0 Hypertensive heart disease with heart failure; I50.30 Unspecified diastolic (congestive) heart failure; E78.5 Hyperlipidemia, unspecified; Z85.46 Personal history of malignant neoplasm of prostate; Z87.891 Personal history of nicotine dependence
CPT/HCPCS: 74018; 74177; 80053; 81001; 83690; 85025; 87086; 99283; Q9967

== ENCOUNTER 2021-04-14 07:11 | Outpatient (CLI) | payer MEDICARE, BC, SELFPAY ==
--- NOTE | 2021-04-14 07:15 | XR_ITS ---
WS: [id number] KUB, AP view, 04/14/2021 Clinical Data: ureteral calculus Comparison: KUB, 03/30/2021. Findings: No abnormal intraabdominal masses are seen. There is no dilatated small bowel or evidence of obstruc tion. The left ureteral stent remains in good position. There is a calcification overlying the left kidney. Fecal material and gas obscure detail over both kidneys. Vertebroplasty cement is within the L5 vert ebral body. There are clips in the low pelvis from surgery. There is a dextroscoliosis with osteoarth ritic change. XR/XR KUB [id number] Impression: 1. Left ureteral catheter unchanged. 2. Left renal calcification.
== END 2021-04-14 07:12 | disposition home or self-care (01) ==
LOC: RAD 07:17
PROVIDERS: PCP Family Medicine; Visit Provider Urology
DX: N20.1 Calculus of ureter (principal); N20.0 Calculus of kidney; Z96.0 Presence of urogenital implants
CPT/HCPCS: 74018; 81003

== ENCOUNTER 2021-06-14 07:48 | Outpatient (CLI) | payer MEDICARE, BC, SELFPAY ==
--- NOTE | 2021-06-14 08:00 | MR_ITS ---
WS: [id number] MRI LUMBAR SPINE NONCONTRAST HISTORY: SCIATICA; BACK PAIN, CHRONIC COMPARISON: None available. TECHNIQUE: Sagittal and axial multisequence imaging is submitted. Severe thoracolumbar scoliosis with advanced degenerative changes and osteophytosis. Fusion across th e C3-4 disc. RIGHT curvature lumbar spine with straightening. L2 and L3 anterolisthesis by 5 mm. No acute fracture or marrow edema. Chronic compression fracture at L2 and L3. L3 compression fractures most significan t at 50%. There is slight retropulsion of posterior superior endplate of L3. L2 vertebral body is inv aginating into the posterior L3 vertebral body due to loss of disc space. Conus terminates normally at L1-2 disc level. L1-L2: Diffuse asymmetric annular disc bulging with moderate facet arthritis. Facet arthritis and lig amentum flavum arthritis greatest on the LEFT. Facet arthritis encroaching into the thecal sac. Mild central stenosis. Moderate LEFT subarticular recess and bilateral foraminal stenosis. L2-L3: Diffuse osteophytic ridging and posterior displacement of the superior endplate of L3 with richar ular disc bulging and osteophytes and facet arthritis. Combination of factors are contributing to mil d central stenosis. Moderate to severe bilateral subarticular recess and foraminal stenosis. L3-L4: Diffuse osteophytic ridging with posterior retropulsion of the L4 vertebral body contact on th e ventral thecal sac. Moderate central stenosis just below the disc level. Moderate bilateral subarti cular recess stenosis, greatest on the RIGHT with mild foraminal narrowing. L4-L5: Diffuse osteophytic ridging and annular disc bulging with ligamentum flavum hypertrophy and fa cet arthritis. Mild foraminal narrowing. L5-S1: Diffuse osteophytic ridging and disc bulging. Disc bulging is asymmetric to the RIGHT contacti ng the RIGHT S1 nerve root. No significant foraminal stenosis. Mild aortic atherosclerosis. MR/MR lumbar spine wo con* [id number] IMPRESSION: 1. 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 2. No acute fracture the lumbar spine. Chronic compression fractures at L2 and L3. 3. Mild central stenosis with moderate LEFT subarticular recess and bilateral foraminal stenosis at L1-2. 4. Moderate to severe bilateral subarticular recess and foraminal stenosis at L2-3. 5. Moderate central with moderate bilateral subarticular recess stenosis, grea test on the RIGHT at L3-4. 6. Very mild foraminal narrowing at L3-4 and L4-5.
== END 2021-06-14 07:49 | disposition home or self-care (01) ==
PROVIDERS: PCP Family Medicine; Visit Provider Family Medicine
DX: M54.30 Sciatica, unspecified side (principal); M51.36 Other intervertebral disc degeneration, lumbar region; M48.061 Spinal stenosis, lumbar region without neurogenic claudication; S32.029A Unspecified fracture of second lumbar vertebra, initial encounter for closed fracture; S32.039A Unspecified fracture of third lumbar vertebra, initial encounter for closed fracture; X58.XXXA Exposure to other specified factors, initial encounter; M47.816 Spondylosis without myelopathy or radiculopathy, lumbar region; M41.86 Other forms of scoliosis, lumbar region
CPT/HCPCS: 72148

== ENCOUNTER 2021-06-27 15:39 | Emergency (ER) | payer MEDICARE, BC, SELFPAY ==
[2021-06-27 16:00] VITALS: BP 153/79; PULSE 66; RESP 16; TEMP 36.7; O2SAT 95
[2021-06-27 16:14] VITALS: BP 162/84; PULSE 68; RESP 18; O2SAT 93
--- NOTE | 2021-06-27 16:15 | CTR_ITS ---
PROCEDURE INFORMATION: Exam: CT Head Without Contrast Exam date and time: 06/27/2021 4:15 PM Age: 85 years old Clinical indication: Injury or trauma; Other: Tool fell on head; Blunt trauma (contusions or hematomas); Injury details: History--socket fell and hit PT on the top of head. No loc. PT on blood thinners; Additional info: Tool fell on head causing laceration and hematoma TECHNIQUE: Imaging protocol: Computed tomography of the head without contrast. Radiation optimization: All CT scans at this facility use at least one of these dose optimization techniques: automated exposure control; mA and/or kV adjustment per patient size (includes targeted exams where dose is matched to clinical indication); or iterative reconstruction. COMPARISON: No relevant prior studies available. RADIATION DOSE METRICS: Total DLP (mGy-cm): 812.97 FINDINGS: Brain: Moderate diffuse cortical volume loss. Mild hypodensities in supratentorial periventricular and subcortical white matter, consistent with microangiopathy. No intracranial hemorrhage. Cerebral ventricles: No ventriculomegaly. Paranasal sinuses: Visualized sinuses are unremarkable. No fluid levels. Mastoid air cells: Visualized mastoid air cells are well aerated. Auditory system: Cerumen in the external L canals. Orbital cavity: Prior cataract surgery. Vasculature: No hyperdense artery. Bones/joints: The calvarium and other bones are intact. No fracture. Soft tissues: Superior left frontal scalp hematoma and laceration. CT/CT head wo con* [id number] IMPRESSION: 1. No fracture or intracranial hemorrhage. 2. Superior left frontal scalp injury. Radiation Dose CTDIVOL = (mGy): DLP = 812.97 (mGy-cm)
--- NOTE | 2021-06-27 16:29 | ED_ITS ---
HPI - Trauma General: Chief Complaint: Trauma Stated Complaint: HEAD INJURY Time Seen by Provider: 06/27/21 16:18 History of Present Illness: HPI narrative: Patient is an 85-year-old male who comes to the ED with a head injury. Just prior to arrival patient says he was moving a ladder and a metal wrench fell from top of the ladder and hit patient on the top of the head. He says the tool fell probably 4 to 5 feet. Denies any loss of consciousness but does feel some pain at the top of his head along with some swelling. Patient is up-to-date on his tetanus. Associated symptoms: Denies abdominal pain, back pain, chest pain, chills, fever(s), headache(s), nausea or vomiting Review of Systems Const: Denies: fever(s), chills or fatigue Eyes: Denies: change in vision or eye discomfort ENMT: Denies: throat pain, odynophagia, nasal discharge or nasal congestion Card: Denies: chest pain, palpitations, edema, swelling of feet/ankles, dyspnea on exertion or orthopnea Resp: Denies: dyspnea, productive cough or non-productive cough GI: Denies: abdominal pain, nausea, vomiting, diarrhea, constipation or hematochezia : Denies: flank pain, difficulty urinating, dysuria or hematuria Musc: Denies: neck pain, back pain or extremity swelling Skin/Breast: Reports: new lesions (contusion on top of scalp); Denies: rash Neuro: Denies: headache(s), numbness in extremities or weakness in extremities [facility] ED PFSH: Medical History Diastolic heart failure HLD (hyperlipidemia) HTN (hypertension) 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 Prostate cancer Urolithiasis Nonobstructing left renal calculus. Surgical History H/O hernia repair H/O lithotripsy H/O prostatectomy Social History Smoking and tobacco status: former smoker Quit status (tobacco): has quit using tobacco Year quit tobacco: 2019 Alcohol intake: never Household members: spouse Housing: House Marital status: Current occupational status: retired History of recent travel: No Physical Exam Const: COMMON NORMALS: no acute distress, patient oriented x3, healthy appearing and alert GENERAL APPEARANCE: cooperative and comfortable HENMT: COMMON NORMALS: normocephalic HEAD & SCALP: normocephalic, hematoma left frontal Head hematoma size: 1 cm and scalp tenderness; no Reed's sign and no raccoon eyes MOUTH: Normal oral and palatal mucosa present THROAT: posterior oropharynx normal and uvula midline Eye: COMMON NORMALS: Equal, round and reactive pupils present, EOMs intact bilaterally and conjunctivae normal CONJUNCTIVA: Yes conjunctivae normal PUPIL: Yes Equal, round and reactive pupils present Neck/C-Spine: COMMON NORMALS: supple GENERAL: Yes normal visual inspection Resp: COMMON NORMALS: normal respiratory effort, No retractions, No use of accessory muscles and clear to auscultation bilaterally AUSCULTATION: clear to auscultation bilaterally Cardio: COMMON NORMALS: regular rate, regular rhythm, S1 normal heart sound present, S2 normal heart sound present, No gallops present (Cardio), No clicks present (Cardio), No murmurs present (Cardio) and Peripheral pulses 2+ throughout RATE: regular rate RHYTHM: regular rhythm HEART SOUNDS: S1 normal heart sound present and S2 normal heart sound present PERIPHERAL PULSES: Peripheral pulses 2+ throughout GI: COMMON NORMALS: Normal to inspection, nondistended, normoactive bowel sounds present, Soft to palpation, non-tender and no masses PALPATION: Yes Soft to palpation : COMMON NORMALS: Yes no CVA tenderness BLADDER/KIDNEY EXAM: Yes no CVA tenderness Back/Pelvis: COMMON NORMALS: no CVA tenderness Extremity: COMMON NORMALS: normal to inspection Neuro: COMMON NORMALS: patient oriented x3, CN's II-XII intact bilaterally, moves all extremities, no focal motor deficits, no sensory deficits noted and gait normal SENSORIUM/ORIENTATION: Yes alert SENSORY EXAM: Yes extremities (Intact to soft touch) MOTOR EXAM: 5/5 motor strength present throughout Skin: GENERAL SKIN EXAM: dry skin Course Vital Signs: Vital signs: Vital Signs Temperature 98.1 F 06/27/21 16:00 Pulse Rate 68 06/27/21 16:14 Respiratory Rate 18 06/27/21 16:14 Blood Pressure 162/84 06/27/21 16:14 Pulse Oximetry 93 06/27/21 16:14 MDM - Trauma MDM Narrative: Medical decision making narrative: Patient is a 85-year-old male comes to the ED with head injury. A branch fell approximately 4 feet off a ladder and hit patient's head causing a small hematoma. Denies any loss of consciousness or headache. CT of head shows no acute fractures or findings. Patient diagnosed with a hematoma of frontal scalp and discharged home. Follow- up with PCP in 7 to 10 days reevaluation. Return ED precautions given. Patient understood agree with plan. Imaging Data^: CT Head: Attestation: I personally reviewed and interpreted this imaging study as follows: Radiologist's impression: [facility] [place] [address] CT Scan Report Signed Patient: Arron Gallardo Unit # : [id number] : 1935 Age/Sex: 85 / M ADM Date: Loc: ER Room/Bed: Attending Dr: Ordering Provider/Ordering MD: Jorge Rowan Date of Service: 06/27/21 Procedure(s): CT head wo con* [id number] Accession Number(s): [id number] Report Number: [id number] PROCEDURE INFORMATION: Exam: CT Head Without Contrast Exam date and time: 06/27/2021 4:15 PM Age: 85 years old Clinical indication: Injury or trauma; Other: Tool fell on head; Blunt trauma (contusions or hematomas); Injury details: History--socket fell and hit PT on the top of head. No loc. PT on blood thinners; Additional info: Tool fell on head causing laceration and hematoma TECHNIQUE: Imaging protocol: Computed tomography of the head without contrast. Radiation optimization: All CT scans at this facility use at least one of these dose optimization techniques: automated exposure control; mA and/or kV adjustment per patient size (includes targeted exams where dose is matched to clinical indication); or iterative reconstruction. COMPARISON: No relevant prior studies available. RADIATION DOSE METRICS: Total DLP (mGy-cm): 812.97 FINDINGS: Brain: Moderate diffuse cortical volume loss. Mild hypodensities in supratentorial periventricular and subcortical white matter, consistent with microangiopathy. No intracranial hemorrhage. Cerebral ventricles: No ventriculomegaly. Paranasal sinuses: Visualized sinuses are unremarkable. No fluid levels. Mastoid air cells: Visualized mastoid air cells are well aerated. Auditory system: Cerumen in the external L canals. Orbital cavity: Prior cataract surgery. Vasculature: No hyperdense artery. Bones/joints: The calvarium and other bones are intact. No fracture. Soft tissues: Superior left frontal scalp hematoma and laceration. CT/CT head wo con* [id number] IMPRESSION: 1. No fracture or intracranial hemorrhage. 2. Superior left frontal scalp injury. Radiation Dose CTDIVOL = (mGy): DLP = 812.97 (mGy-cm) Dictated By: Leo Hamlin Signed By: Leo Hamlin Signed Date/Time: 06/27/211705 DD/ 03 Discharge Plan Discharge Patient Disposition: Home Clinical Impression: Hematoma of frontal scalp Qualifiers: Encounter type: initial encounter Qualified Code(s): S00.03XA - Contusion of scalp, initial encounter Condition: Stable Prescriptions: No Action primidone 50 mg PO BID RF: 0 lovastatin 40 mg tablet 40 mg PO DAILY RF: 0 celecoxib [Celebrex] 200 mg capsule 200 mg PO BID RF: 0 Hold Instructions: Resume on 03/29/21. aspirin 325 mg tablet 325 mg PO DAILY RF: 0 metoprolol succinate 50 mg tablet extended release 24 hr 50 mg PO BID RF: 0 furosemide 20 mg tablet 20 mg PO DAILY RF: 0 hydrocodone-acetaminophen 5-325 mg tablet 1 tab PO BID PRNRF: 0 ondansetron HCl [Zofran] 4 mg tablet 4 mg PO Q6H PRN (Reason: nausea and vomiting) Qty: 15 RF: 0 tamsulosin 0.4 mg capsule 0.4 mg PO DAILY Qty: 14 RF: 0 Discharge Orders: Discharge ED (Routine); Ordered 06/27/21 Ordered By: Jorge Rowan Referrals: Fabiano Woo MD [Primary Care Provider] - Discharge Diet: Regular Discharge Activity: Increase activity as tolerated Patient Instructions: Scalp Contusion in Adults (ED) Activity Restrictions/Additional Instructions: Follow-up with medical provider as directed in 7 days for reevaluation. Continue taking all home medications as previously prescribed. Apply cold pack on head to help with symptoms. Take [id number] Tylenol for pain. Return to the ER or your medical provider if condition worsens. Please read and understand discharge instructions. Thank you for choosing [facility] for your healthcare needs today. Please realize this is an emergency room and that we are providing you with a medical screening exam and this may not be complete and all inclusive of all the testing and or work up that you may need to determine your ailment or severity of your illness. It is very important that you follow up as instructed or that you return to the Emergency Department should you have concerns or if your condition changes or worsens in any way. Coding Level of Care Code ED Tearoom Host for Ada Fwd Exam Comprehensive
== END 2021-06-27 17:25 | disposition home or self-care (01) ==
PROVIDERS: Emergency Provider Physician Assistant; PCP Family Medicine
DX: S00.03XA Contusion of scalp, initial encounter (principal); Z79.82 Long term (current) use of aspirin; I11.0 Hypertensive heart disease with heart failure; I50.30 Unspecified diastolic (congestive) heart failure; E78.5 Hyperlipidemia, unspecified; Z85.46 Personal history of malignant neoplasm of prostate; Z87.891 Personal history of nicotine dependence; W20.8XXA Other cause of strike by thrown, projected or falling object, initial encounter
CPT/HCPCS: 70450; 99282

== ENCOUNTER → 2021-07-26 12:48 | Outpatient (BNVA) | payer MEDICARE, BC, SELFPAY | PROVIDERS: PCP Family Medicine; Referring Provider Family Medicine; Visit Provider Physician Assistant | DX: M48.56XA Collapsed vertebra, not elsewhere classified, lumbar region, initial encounter for fracture (principal); M54.50 Low back pain, unspecified | CPT/HCPCS: 72110 ==

== ENCOUNTER → 2021-08-01 10:25 | Outpatient (BNVA) | payer MEDICARE, BC, SELFPAY | PROVIDERS: PCP Family Medicine; Referring Provider Physician Assistant; Visit Provider Anesthesiology Pain Medicine | DX: M51.36 Other intervertebral disc degeneration, lumbar region (principal); M48.061 Spinal stenosis, lumbar region without neurogenic claudication; S32.029A Unspecified fracture of second lumbar vertebra, initial encounter for closed fracture; S32.039A Unspecified fracture of third lumbar vertebra, initial encounter for closed fracture; X58.XXXA Exposure to other specified factors, initial encounter; M47.816 Spondylosis without myelopathy or radiculopathy, lumbar region; Z87.891 Personal history of nicotine dependence | CPT/HCPCS: 99205 ==

== ENCOUNTER → 2021-09-26 09:47 | Outpatient (BNVA) | payer MEDICARE, BC, SELFPAY | PROVIDERS: PCP Family Medicine; Visit Provider Anesthesiology Pain Medicine | DX: M47.816 Spondylosis without myelopathy or radiculopathy, lumbar region (principal); M47.818 Spondylosis without myelopathy or radiculopathy, sacral and sacrococcygeal region; M48.062 Spinal stenosis, lumbar region with neurogenic claudication; Z79.891 Long term (current) use of opiate analgesic; Z87.891 Personal history of nicotine dependence | CPT/HCPCS: 99213 ==

== ENCOUNTER 2021-10-13 07:43 | Outpatient (CLI) | payer MEDICARE, BC, SELFPAY ==
--- NOTE | 2021-10-13 09:00 | XR_ITS ---
WS: [id number] KUB, AP view, 10/13/2021 Clinical Data: UROLITHIASIS Comparison: KUB, 04/14/2021. Findings: No abnormal intraabdominal masses are seen. There is no dilatated small bowel or evidence of obstruct ion. There is a 1.3 cm calcification overlying the left kidney. Both kidneys are partially obscured by ove rlying fecal material and bowel gas. 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 Vertebroplasty c ement is in the L5 vertebral body. There are surgical clips in the pelvis. XR/XR KUB [id number] Impression: Left renal calcification.
== END 2021-10-13 07:44 | disposition home or self-care (01) ==
LOC: RAD 07:47
PROVIDERS: PCP Family Medicine; Visit Provider Urology
DX: N20.0 Calculus of kidney (principal)
CPT/HCPCS: 74018; 81003

== ENCOUNTER → 2022-05-01 10:26 | Outpatient (BNVA) | payer MEDICARE, BC, SELFPAY | PROVIDERS: PCP Family Medicine; Visit Provider Otolaryngology | DX: L57.8 Other skin changes due to chronic exposure to nonionizing radiation (principal); L57.0 Actinic keratosis | CPT/HCPCS: 99203 ==

== ENCOUNTER → 2022-05-10 08:13 | Outpatient (BNVA) | payer MEDICARE, BC, SELFPAY | PROVIDERS: PCP Family Medicine; Visit Provider Family Medicine | DX: Z85.46 Personal history of malignant neoplasm of prostate (principal); M48.061 Spinal stenosis, lumbar region without neurogenic claudication; I10 Essential (primary) hypertension; E78.5 Hyperlipidemia, unspecified; I50.30 Unspecified diastolic (congestive) heart failure | CPT/HCPCS: 80053; 80061; 84153; 85025 ==

== ENCOUNTER 2022-06-15 07:46 | Outpatient (CLI) | payer MEDICARE, BC, SELFPAY ==
--- NOTE | 2022-06-15 08:45 | USCV_ITS ---
Arron Gallardo Age: 86 Gender: M : 1935 Exam Date: 06/15/2022 08:06 Ordering Phys: Fabiano Woo MD Technologist: Shellie Carrillo [place]am [place] [facility] [place] Indication: tia Risk Factors: None Previous Vascular Surgery: None Right Brachial BP: / Left Brachial BP: / Right Left Velocity (cm/s) Spectral Plaque Velocity (cm/s) Spectral Plaque Syst/Diast Broadening Syst/Diast Broadening 64.10/ 12.80 Prox CCA 118.70/ 34.20 66.70/ 12.00 Mid CCA 67.50 / 16.20 60.70/ 13.70 Eliot Distal CCA 56.40 / 14.50 48.00/ 11.20 Eliot Prox ICA 42.70 / 16.20 66.80/ 11.70 Mid ICA 60.70 / 18.80 35.70/ 12.40 Distal ICA 62.50 / 21.70 91.70 ECA 92.30 1.00 ICA/CCA 0.53 Antegrade Vertebral Antegrade 31.00/ 6.40 cm/s 39.40/ 13.60 cm/s Tri Subclavian Tri 93.70 87.00 CONCLUSIONS Right ICA stenosis <50%. Mild calcified atheromatous plaque right carotid bulb/ICA. Left ICA stenosis <50%. Normal antegrade Doppler flow noted in the right vertebral artery. Normal antegrade Doppler flow noted in the left vertebral artery. Nikko Guzman MD (Electronically Signed) Final Date: 15 June 2022 13:38 S
== END 2022-06-15 07:47 | disposition home or self-care (01) ==
LOC: RAD 07:48
PROVIDERS: PCP Family Medicine; Visit Provider Family Medicine
DX: G45.9 Transient cerebral ischemic attack, unspecified (principal)
CPT/HCPCS: 93880

== ENCOUNTER → 2022-08-28 10:53 | Outpatient (BNVA) | payer MEDICARE, BC, SELFPAY | PROVIDERS: PCP Family Medicine; Visit Provider Family Medicine | DX: J02.9 Acute pharyngitis, unspecified (principal); J18.9 Pneumonia, unspecified organism; R50.9 Fever, unspecified | CPT/HCPCS: 87400; 87426 ==

== ENCOUNTER → 2022-12-07 08:28 | Outpatient (BNVA) | payer MEDICARE, BC, SELFPAY | PROVIDERS: PCP Family Medicine; Visit Provider Family Medicine | DX: I50.30 Unspecified diastolic (congestive) heart failure (principal); R06.00 Dyspnea, unspecified; R05.9 Cough, unspecified; I10 Essential (primary) hypertension; E78.5 Hyperlipidemia, unspecified; R07.9 Chest pain, unspecified | CPT/HCPCS: 80053; 80061; 85025 ==

== ENCOUNTER 2022-12-29 12:01 | Outpatient (CLI) | payer MEDICARE, BC, SELFPAY ==
[2022-12-29] MEDS: iohexol 350 mg/mL 500 mL Btl (per mL) IV (12:29)
--- NOTE | 2022-12-29 12:30 | CT_ITS ---
WS: [id number] EXAMINATION: CT chest w con* [id number] ORDER DATE: 12/29/2022 12:15 PM COMPARISON: 06/08/2020 HISTORY: worsening sob since covid TOTAL EXAM DLP: 357.[address] scans at [facility] use at least one of these dose optimization techniques: automated e xposure control; mA and/or kV adjustment per patient size (includes targeted exams where dose is matc hed to clinical indication); or iterative reconstruction. TECHNIQUE: CT chest images were acquired using a chest angiographic protocol with 3-D imaging optimized for PE is obtained utilizing 100 mL of Omnipaque 350 IV. 2D Coronal and sagittal reformats were obtained. 3-D rendering (not supervised by radiologist) MIP and/or 3-D reconstructed images were created by the technologist. FINDINGS: Pulmonary arteries: No pulmonary embolus seen. RV/LV ratio: Less than 0.9 Lung parenchyma: Clear of infiltrates. Scattered chronic lung and granulomatous changes. Pleural effusion: None. Central airways: Normal. Mediastinum/Adenopathy: No evidence of mediastinal mass or adenopathy. Heart and great vessels: Cardiomegaly with left heart enlargement. . Atherosclerotic coronary artery calcification No evidence of aortic aneurysm or dissection Other findings: Unchanged right Bochdalek hernia Upper abdomen: Numerous small hepatic cysts unchanged. Bones: Degenerative disc and spine changes CT/CT chest w con* [id number] IMPRESSION: NO ACUTE OR CHRONIC PULMONARY EMBOLISM. OTHER CHANGES STABLE COMPARED WITH THE LAST EXAM.
== END 2022-12-29 12:02 | disposition home or self-care (01) ==
LOC: RAD 12:02
PROVIDERS: PCP Family Medicine; Visit Provider Family Medicine
DX: I50.30 Unspecified diastolic (congestive) heart failure (principal); R05.9 Cough, unspecified; R06.00 Dyspnea, unspecified
CPT/HCPCS: 71260; Q9967

== ENCOUNTER 2023-01-03 09:58 | Outpatient (CLI) | payer MEDICARE, BC, SELFPAY ==
--- NOTE | 2023-01-03 10:15 | USCV_ITS ---
Arron Gallardo Age: 87 Gender: M : 1935 Exam Date: 01/03/2023 10:24 Ordering Phys: Fabiano Woo MD Technologist: SEJAL Exam Location: [facility] [place] Indication: ENLARGED HEART SEEN ON CT, SHORTNESS OF BREATH BP: 100 / 68 HR: 49 Rhythm: Sinus Technical Quality: Adequate MEASUREMENTS (Male / Female) Normal Values 2D ECHO LVOT Diameter 2.0 cm LV Ejection Fraction MOD 2C 59.3 % LV Ejection Fraction 2C AL 60.1 % LA Diameter 4.3 cm LA Width 4.6 cm LA Height 6.4 cm RA Width 4.9 cm RA Height 5.3 cm Aorta at Sinotubular Diameter 2.5 cm IVC Diameter 1.4 cm M-MODE Aortic Annulus Diameter 3.9 cm LA Ao Ratio MM 1.0 MV E Point Septal Separation 0.9 cm DOPPLER AV Peak Velocity 196.8 cm/s LVOT Peak Velocity 127.0 cm/s AV Area Cont Eq vti 2.1 cm squared AV Area Cont Eq pk 1.9 cm squared MV Peak Velocity 101.0 cm/s MV Area PHT 4.0 cm squared Mitral E to A Ratio 1.6 MV E' Velocity 43.5 cm/s Mitral E to MV E' Ratio 9.2 Mitral E to LV E' Lateral Ratio 9.2 Mitral E to LV E' Septal Ratio 9.3 TR Peak Velocity 178.2 cm/s TR Peak Gradient 12.7 mmHg TR Mean Velocity 139.3 cm/s TR Mean Gradient 8.5 mmHg TR Velocity Time Integral 55.7 cm TV Peak E Velocity 40.0 cm/s Right Atrial Pressure 3.0 mmHg Pulmonary Artery Systolic Pressu 15.7 mmHg FINDINGS Left Ventricle Technically limited quality echocardiogram. Left ventricle is normal in size. LV systolic function is normal with EF of 60- 65%. No regional wall motion abnormalities are seen. Right Ventricle Normal in size and function. Right Atrium Normal in size Left Atrium Severely dilated left atrium Mitral Valve Grossly normal. Trace mitral regurgitation. Aortic Valve Aortic valve is thickened. Mild aortic stenosis. Aortic valve area is 2.01cm2 and mean gradient 8mmHg. Mild aortic regurgitation. Tricuspid Valve Trace tricuspid regurgitation. Insufficient TR jet to calculate RVSP Pulmonic Valve Not well visualized Pericardium Normal Aorta Normal in size IVC Appears to be normal CONCLUSIONS LV systolic function is normal with EF of 60-65% Severely dilated left atrium Trace mitral regurgitation Mild aortic stenosis. Mild aortic regurgitation Trace tricuspid regurgitation Compared to prior echocardiogram from 2019, no significant changes are seen Chris Santana MD (Electronically Signed) Final Date: 14 January 2023 12:04 S
== END 2023-01-03 09:59 | disposition home or self-care (01) ==
LOC: RAD 10:03
PROVIDERS: PCP Family Medicine; Visit Provider Family Medicine
DX: R07.9 Chest pain, unspecified (principal); I50.30 Unspecified diastolic (congestive) heart failure; R05.9 Cough, unspecified; R06.00 Dyspnea, unspecified; I08.1 Rheumatic disorders of both mitral and tricuspid valves
CPT/HCPCS: 93306

== ENCOUNTER 2023-02-28 08:13 | Outpatient (CLI) | payer MEDICARE, BC, SELFPAY ==
[2023-02-28 08:38] VITALS: PULSE 50; RESP 18; O2SAT 96
[2023-02-28] MEDS: albuterol 2.5 mg/3 mL Neb INHALATION (08:38)
[2023-02-28 08:43] VITALS: PULSE 54
== END 2023-02-28 08:14 | disposition home or self-care (01) ==
LOC: RT 08:14
PROVIDERS: PCP Family Medicine; Visit Provider Family Medicine
DX: R06.00 Dyspnea, unspecified (principal)
CPT/HCPCS: 94060; J7613

== ENCOUNTER 2023-03-08 07:46 | Outpatient (CLI) | payer MEDICARE, BC, SELFPAY ==
--- NOTE | 2023-03-08 | ECG_ITS ---
[facility] Test Date: 2023-03-08 Pat Name: Arron Gallardo Department: Room: Gender: Male Braze Operator: Laura LinkHilda : 1935 Requested By: Fabiano Mora Order Number: [id number] Waleska MD: Shawanda Blair M.D. Interpretive Statements NAME OF STUDY: LEXISCAN SESTAMIBI STRESS TEST INDICATION: Chest Pain, Dyspnea PROCEDURE: At the baseline, the blood pressure was 205/95 mm Hg with a heart rate of 73 bpm. The electrocardiogram showed sinus bradycardia with isolated PVC. Nonspecific T wave inversion in lead III. The Lexiscan was infused over a period of 20 seconds. A total of 0.4 milligrams of Lexiscan was infused. The stress phase was continued for a total of 5 minutes. Heart rate at the end of the stress phase was 69 bpm with a blood pressure of 157/93 mm Hg. The EKG at the peak infusion revealed sinus rhythm with no significant ST-T wave changes. Frequent isolated PVC noted during Lexiscan infusion. Sestamibi was injected 20 seconds after the Lexiscan infusion. Blood pressure at the end of the recovery phase was 165/89 mm Hg with a heart rate of 64 beats per minute. CONCLUSION: 1. No significant EKG changes with the LexiScan infusion. 2. No LexiScan induced chest pain or cardiac arrhythmia. 3. Baseline hypertension with normal blood pressure and heart rate response. 4. Sestamibi/sestamibi perfusion scan pending; see separate report. Electronically Signed On 03-14-2023 11:07:54 CDT by Shawanda Blair M.D. [id number]
[2023-03-08 08:00] VITALS: BMI 31.1
--- NOTE | 2023-03-08 08:23 | NMCV_ITS ---
NM prakash perf SPECT r/s* [id number] Arron Gallardo Age: 87 Gender: M : 1935 Exam Date: 03/08/2023 09:01 Ordering Phys: Fabiano Woo MD Technologist: LEELA Naidu Exam Location: [facility] Indications: SHORTNESS OF BREATH STRESS TEST [facility] IMAGE PROTOCOL Rest/Stress 1 Lexiscan Day Radiopharmaceutical Dose (mCi) Administration Site Administered by Rest: Tc-99m 10.6 IV LEELA Ferrera Sestamibi Stress:Tc-99m 32.9 IV LEELA Ferrera Sestamibi Rest: 08-Mar-2023 60 Discovery 630 Stress: 08-Mar-2023 30 Discovery 630 0.4mg Lexiscan. Supine position only as patient was unable to lay prone. SPECT RESULTS Technical Quality: Excellent Raw Data Analysis: Normal Image Corrections: No attenuation or motion correction applied Summed Stress Score: 1 Summed Rest Score: 5 Summed Difference Score: 0 PERFUSION FINDINGS Small sized perfusion abnormality of mild severity of mid to apical inferior and mid inferoseptal jones with improved tracer uptake on stress images. FUNCTIONAL RESULTS (calculated via Gated SPECT) Stress Image LV EF (%): 71 Stress EDV (mL):131 TID: 1.23 Stress ESV (mL):38 FUNCTIONAL FINDINGS: The left ventricle is normal in size. Transient Ischemia Dilatation of 1.2. The left ventricular ejection fraction is normal with a value of 71%. There is normal left ventricular wall thickening. IMPRESSIONS 1. Myocardial perfusion imaging is normal. Attenuation artifact noted in inferior wall. 2. Overall left ventricular systolic function is normal without regional wall motion abnormalities, LVEF=71%. 3. TID mildly increased at 1.2. 4. No coronary ischemia based on this study. Shawanda Blair MD (Electronically Signed) Final Date: 11 March 2023 15:06 S
[2023-03-08] MEDS: regadenoson 0.4 Mg/5 ml Syringe IVP (09:31)
[2023-03-08 09:38] VITALS: BP 165/89; PULSE 63
== END 2023-03-08 07:47 | disposition home or self-care (01) ==
LOC: CDL 07:47
PROVIDERS: PCP Family Medicine; Visit Provider Family Medicine
DX: R07.9 Chest pain, unspecified (principal); R06.00 Dyspnea, unspecified
CPT/HCPCS: 36415; 78452; 93017; 96374; A9500; J2785

== ENCOUNTER → 2023-04-24 09:54 | Outpatient (BNVA) | payer MEDICARE, BC, SELFPAY | PROVIDERS: PCP Family Medicine; Visit Provider Family Medicine | DX: Z85.46 Personal history of malignant neoplasm of prostate (principal); I50.30 Unspecified diastolic (congestive) heart failure | CPT/HCPCS: 80048; 83880; 84153 ==

== ENCOUNTER 2023-04-25 20:00 | Outpatient (CLI) | payer MEDICARE, BC, SELFPAY | END 2023-04-25 20:01 | disposition home or self-care (01) | LOC: SLEEP 04-26 06:18 | PROVIDERS: PCP Family Medicine; Visit Provider Family Medicine | DX: G47.10 Hypersomnia, unspecified (principal) | CPT/HCPCS: 95810 ==

== ENCOUNTER → 2023-07-24 08:25 | Outpatient (BNVA) | payer MEDICARE, BC, SELFPAY | PROVIDERS: PCP Family Medicine; Visit Provider Family Medicine | DX: I50.30 Unspecified diastolic (congestive) heart failure (principal); J44.9 Chronic obstructive pulmonary disease, unspecified; E78.5 Hyperlipidemia, unspecified; I11.0 Hypertensive heart disease with heart failure | CPT/HCPCS: 80053; 80061; 83880 ==

== ENCOUNTER → 2023-10-17 09:04 | Outpatient (BNVA) | payer MEDICARE, BC, SELFPAY | PROVIDERS: PCP Family Medicine; Visit Provider Family Medicine | DX: I11.0 Hypertensive heart disease with heart failure (principal); I50.30 Unspecified diastolic (congestive) heart failure; D72.819 Decreased white blood cell count, unspecified | CPT/HCPCS: 80053; 83880; 85025 ==

== ENCOUNTER → 2023-12-24 13:56 | Outpatient (BNVA) | payer MEDICARE, BC, SELFPAY | PROVIDERS: PCP Family Medicine; Referring Provider Family Medicine; Visit Provider Specialist | DX: M17.11 Unilateral primary osteoarthritis, right knee; M25.561 Pain in right knee; M25.562 Pain in left knee | CPT/HCPCS: 73560; 73565; 80053; 81003; 85025; 99204 ==

== ENCOUNTER → 2024-01-04 11:07 | Outpatient (BNVA) | payer MEDICARE, BC, SELFPAY | PROVIDERS: PCP Family Medicine; Visit Provider Clinical Nurse Specialist Adult Health | DX: M17.11 Unilateral primary osteoarthritis, right knee (principal); J06.9 Acute upper respiratory infection, unspecified | CPT/HCPCS: 87400; 87426 ==

== ENCOUNTER 2024-01-29 16:36 | Emergency (ER) | payer MEDICARE, BC, SELFPAY ==
[2024-01-29] VITALS (7 sets, daily range): BP systolic 205–224; BP diastolic 84–101; PULSE 44–68; RESP 16–22; TEMP 36.3; O2SAT 90–96
--- NOTE | 2024-01-29 16:47 | CTR_ITS ---
PROCEDURE INFORMATION: Exam: CT Abdomen And Pelvis Without Contrast Exam date and time: 01/29/2024 5:04 PM Age: 88 years old Clinical indication: Abdominal pain; Flank; Right TECHNIQUE: Imaging protocol: Computed tomography of the abdomen and pelvis without contrast. Radiation optimization: All CT scans at this facility use at least one of these dose optimization techniques: automated exposure control; mA and/or kV adjustment per patient size (includes targeted exams where dose is matched to clinical indication); or iterative reconstruction. COMPARISON: CT abdomen pelvis w con* [id number] 03/30/2021 1:28 AM RADIATION DOSE METRICS: Total DLP (mGy-cm): 831.06 FINDINGS: Heart: Mild cardiomegaly. Coronary arteries: Mild coronary artery calcifications. Liver: Hypodense lesions in the liver are too small to characterize but are most likely cysts. No follow-up imaging is recommended. Gallbladder and bile ducts: Contracted gallbladder. No visible stones. The bile ducts are normal. Pancreas: Normal. No ductal dilation. Spleen: Calcified granulomas in the spleen. Adrenal glands: Normal. No mass. Kidneys and ureters: 11 mm calculus in the left renal pelvis. No hydronephrosis. 4 mm obstructing calculus in the proximal right ureter with mild-moderate right hydronephrosis. Multiple calculi in the right kidney and right renal pelvis, measuring up to 8 mm. Right perinephric stranding. Stomach and bowel: Diverticulosis in the colon. No diverticulitis. The stomach and small bowel are unremarkable. No wall thickening or obstruction. Appendix: The appendix is not visualized. No secondary signs of appendicitis. Intraperitoneal space: Unremarkable. No free air. No significant fluid collection. Vasculature: Mild calcified arterial plaque. No aneurysm. Lymph nodes: Unremarkable. No enlarged lymph nodes. Urinary bladder: Unremarkable as visualized. Reproductive: The prostate is small in size or surgically absent. Bones/joints: Scoliosis and degenerative changes of the lumbar spine. L5 kyphoplasty. Stable T12, L1, , L2, and L3 compression fractures. No acute fracture. Soft tissues: Fat containing small left inguinal hernia. Clips in the bilateral groin. Small fat containing umbilical hernia. CT/CT abdomen pelvis con [id number] IMPRESSION: 1. 4 mm obstructing calculus in the proximal right ureter with [id number] hydronephrosis. 2. 11 mm nonobstructing calculus in the left renal pelvis. 3. Multiple calculi in the right kidney and renal pelvis. 4. Diverticulosis of the colon.
[2024-01-29 18:09] LABS: Basophils % 0.4 %; Eosinophils # 0.6 10^3/uL (0.0-0.8); Eosinophils % 7.5 %; Hematocrit 40.2 % (37-53); Lymphocytes # 2.1 10^3/uL (0.8-4.8); Lymphocytes % 25.2 %; Mean Corpuscular HGB Conc 32.8 g/dL (30-55); Mean Corpuscular Hemoglobin 29.6 pg (27-33); Mean Corpuscular Volume 90.1 fl (82-101); Mean Platelet Volume 10.1 fL (7.4-10.4); Monocytes # 0.8 10^3/uL (0.2-0.9); Monocytes % 9.3 %; Neutrophils # 4.72 10^3/uL (1.8-7.7); Neutrophils % 57.4 %; Nucleated Red Blood Cells % 0 %; Platelet Count 163 10^3/cmm (157-399); Red Blood Count 4.46 10^6/uL (3.85-5.65); Red Cell Distribution Width 13.4 % (12.1-15.1); White Blood Count 8.24 10^3/uL (3.29-11.43)
[2024-01-29 18:35] LABS: Alanine Aminotransferase 17 U/L (0-41); Albumin Level 4.3 g/dL (3.5-5.2); Alkaline Phosphatase 131 U/L (40-130); Anion Gap 12.4 (5-19); Aspartate Amino Transferase 20 U/L (0-40); Blood Urea Nitrogen 19 mg/dL (8-23); Calcium 9.1 mg/dL (8.5-10.5); Carbon Dioxide 30 mmol/L (22-29); Chloride 104 mmol/L (98-107); Globulin 2.5 g/dL (1.3-4.6); Glucose 112 mg/dL (65-115); Osmolality Calculated 297 mOsm/kg (285-295); Potassium 4.4 mmol/L (3.5-5.1); Sodium 142 mmol/L (136-145); Total Bilirubin 0.2 mg/dL (0.15-1.2); Total Protein 6.8 g/dL (6.6-8.7)
--- NOTE | 2024-01-29 18:39 | ED_ITS ---
HPI - Abdominal Pain 2 General: Chief Complaint: Abdominal Pain Stated Complaint: back pain Time Seen by Provider: 01/29/24 18:35 History of Present Illness: 88-year-old man with a history of kidney stones, COPD and hypertension who presents the emergency room with right flank pain. He had some nausea but no vomiting. He says this feels like when he had kidney stones in the past. The pain is very severe. No fevers. No chest pain. No altered mental status. Review of Systems 2 Narrative: Constitutional symptoms: Negative except as documented in HPI. Skin symptoms: Negative except as documented in HPI. Eye symptoms: Negative except as documented in HPI. ENMT symptoms: Negative except as documented in HPI. Respiratory symptoms: Negative except as documented in HPI. Cardiovascular symptoms: Negative except as documented in HPI. Gastrointestinal symptoms: Negative except as documented in HPI. Genitourinary symptoms: Negative except as documented in HPI. Musculoskeletal symptoms: Negative except as documented in HPI. Neurologic symptoms: Negative except as documented in HPI. Psychiatric symptoms: Negative except as documented in HPI. Endocrine symptoms: Negative except as documented in HPI. PFSH ED 2 PFSH: Medical History COPD (chronic obstructive pulmonary disease) Cancer of skin of left ear History of prostate cancer Radical prostatectomy in 2000. Very low PSAs. Stopped surveillance 2020 Hx of back injury Hx of cataract Urolithiasis Nonobstructing left renal calculus. Later engaged the ureter and required endoscopic laser lithotripsy. 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 Diastolic heart failure HLD (hyperlipidemia) HTN (hypertension) Surgical History Hx of foot surgery Hx of hand surgery S/P ureteral stent placement H/O prostatectomy H/O lithotripsy H/O hernia repair Social History Smoking and tobacco/nicotine status: never used tobacco/nicotine Quit status (tobacco/nicotine): has quit using Year quit tobacco: 2019 Alcohol intake: never Substance/Drug Use: never Caregiver/support person: Yes Lives independently: Yes Household members: spouse Housing: House Marital status: Current occupational status: retired Physical Exam 2 Narrative: EXAM NARRATIVE: General: Alert, patient is in some pain/distress Skin: Warm, dry. Head: Normocephalic, atraumatic. Neck: Supple, trachea midline. Eye: Extraocular movements are intact. Ears, nose, mouth and throat: mucosa moist. Cardiovascular: Regular, Normal peripheral perfusion. Respiratory: Lungs are clear to auscultation, respirations are non-labored, breath sounds are equal, Symmetrical chest wall expansion. Gastrointestinal: Soft, right flank pain, Non distended, Normal bowel sounds. Musculoskeletal: Normal ROM, no deformity. Neurological: Alert and oriented, No focal neurological deficit observed. Psychiatric: Cooperative, appropriate mood & affect. Course 2 Vital Signs: Vital signs: Vital Signs Temperature 97.3 F L 01/29/24 16:40 Pulse Rate 44 L 01/29/24 19:02 Respiratory Rate 18 01/29/24 16:40 Blood Pressure 219/101 01/29/24 19:02 Pulse Oximetry 95 01/29/24 19:02 Oxygen Delivery Me thod Room Air 01/29/24 19:02 MDM - Abdominal Pain Medical Decision Making Medical decision making: Differential diagnosis including but not limited to and based on the above HPI, review of systems and physical exam: Ureterolithiasis. Urinary tract infection. Appendicitis. Cholecystis. Musculoskeletal / back pain. Pyelonephritis Orders placed to evaluate differential diagnosis based on the above differential, HPI and physical exam Lab Review: Laboratory results were reviewed and interpreted by myself the emergency room physician. No leukocytosis. No anemia. Renal function is good at 19 and 1.1. Urine has a couple of whites and a couple of reds. CT of the abdomen pelvis without contrast: Patient has a 4 mm proximal right ureteral stone. Has an 11 mm stone in the left renal pelvis with no obstruction. Numerous stones in the kidneys. This was reviewed and interpreted by myself the emergency room physician. I also reviewed the radiologist report. I reviewed the patient's medical record. Reexamination: Patient is somewhat improved after pain medications. No altered mental status. No increased work of breathing. Lab Data 01/29/24 17:56 01/29/24 17:56 Labs/Radiology: Radiology Impressions Abdomen/Pelvis CT 01/29/24 16:47 IMPRESSION: 1. 4 mm obstructing calculus in the proximal right ureter with [id number] hydronephrosis. 2. 11 mm nonobstructing calculus in the left renal pelvis. 3. Multiple calculi in the right kidney and renal pelvis. 4. Diverticulosis of the colon. Laboratory Results WBC 8.24 10^3/uL (3.29-11.43) 01/29/24 17:56 RBC 4.46 10^6/uL (3.85-5.65) 01/29/24 17:56 Hgb 13.20 g/dL (11.27-16.99) 01/29/24 17:56 Hct 40.2 % (37-53) 01/29/24 17:56 MCV 90.1 fl (82-101) 01/29/24 17:56 MCH 29.6 pg (27-33) 01/29/24 17:56 MCHC 32.8 g/dL (30-55) 01/29/24 17:56 RDW 13.4 % (12.1-15.1) 01/29/24 17:56 Plt Count 163 10^3/cmm (157-399) 01/29/24 17:56 MPV 10.1 fL (7.4-10.4) 01/29/24 17:56 Neut % (Auto) 57.4 % 01/29/24 17:56 Lymph % (Auto) 25.2 % 01/29/24 17:56 [place] % (Auto) 9.3 % 01/29/24 17:56 Eos % (Auto) 7.5 % 01/29/24 17:56 Baso % (Auto) 0.4 % 01/29/24 17:56 Neut # (Auto) 4.72 10^3/uL (1.8-7.7) 01/29/24 17:56 Lymph # (Auto) 2.1 10^3/uL (0.8-4.8) 01/29/24 17:56 [place] # (Auto) 0.8 10^3/uL (0.2-0.9) 01/29/24 17:56 Eos # (Auto) 0.6 10^3/uL (0.0-0.8) 01/29/24 17:56 Baso # (Auto) 0.0 10^3/uL (0.0-0.1) 01/29/24 17:56 Nucleated RBC % (auto) 0 % 01/29/24 17:56 Nucleated RBCs # 0.0 /100WBC 01/29/24 17:56 Sodium 142 mmol/L (136-145) 01/29/24 17:56 Potassium 4.4 mmol/L (3.5-5.1) 01/29/24 17:56 Chloride 104 mmol/L (98-107) 01/29/24 17:56 Carbon Dioxide 30 mmol/L (22-29) H 01/29/24 17:56 Anion Gap 12.4 (5-19) 01/29/24 17:56 BUN 19 mg/dL (8-23) 01/29/24 17:56 Creatinine 1.1 mg/dL (0.7-1.2) 01/29/24 17:56 GFR Calculation Not Reportable 01/29/24 17:56 Glucose 112 mg/dL (65-115) 01/29/24 17:56 Calculated Osmolality 297 mOsm/kg (285-295) H 01/29/24 17:56 Calcium 9.1 mg/dL (8.5-10.5) 01/29/24 17:56 Total Bilirubin 0.2 mg/dL (0.15-1.2) 01/29/24 17:56 AST 20 U/L (0-40) 01/29/24 17:56 ALT 17 U/L (0-41) 01/29/24 17:56 Alkaline Phosphatase 131 U/L (40-130) H 01/29/24 17:56 Total Protein 6.8 g/dL (6.6-8.7) 01/29/24 17:56 Albumin 4.3 g/dL (3.5-5.2) 01/29/24 17:56 Globulin 2.5 g/dL (1.3-4.6) 01/29/24 17:56 Urine Color Yellow (Yellow) 01/29/24 18:33 Urine Appearance Clear (CLEAR) 01/29/24 18:33 Urine pH 5 (5-7) 01/29/24 18:33 Ur Specific [place] 1.020 (1.005-1.030) 01/29/24 18:33 Urine Protein Neg (Negative) 01/29/24 18:33 Urine Glucose (UA) Norm (Normal) 01/29/24 18:33 Urine Ketones 1+ (Negative) H 01/29/24 18:33 Urine Blood 2+ (Negative) H 01/29/24 18:33 Urine Nitrate Negative (Negative) 01/29/24 18:33 Urine Bilirubin Neg (Negative) 01/29/24 18:33 Urine Urobilinogen Norm mg/dL (Negative) 01/29/24 18:33 Ur Leukocyte Esterase Negative (Negative) 01/29/24 18:33 Urine RBC 0-4 /hpf (0-2) H 01/29/24 18:33 Urine WBC Rare /hpf (0-5) 01/29/24 18:33 Ur Squamous Epith Cells Rare /hpf (0-5) 01/29/24 18:33 Amorphous Sediment Not Reportable 01/29/24 18:33 Urine Bacteria None /hpf (NONE) 01/29/24 18:33 Hyaline Casts 0-4 /lpf H 01/29/24 18:33 Urine Mucus None /hpf 01/29/24 18:33 All radiology interpretation(s) finalized by discharge Other Data Assessment and plan: Ureterolithiasis -IV fluids, IV Zofran, IV Dilaudid and p.o. Flomax - Discharged home - Discussed findings and plan with patient. Answered any questions. - All laboratory values were reviewed and interpreted personally by myself, the ER physician - All imaging was reviewed and interpreted personally by myself, the ER physician. - Evaluation and treatment of this problem were appropriate in the emergency setting Discharge Plan Discharge Patient Disposition: Home Clinical Impression: Ureterolithiasis Condition: Stable Prescriptions: New hydrocodone-acetaminophen 5-325 mg tablet 1 tab PO Q6H PRN (Reason: pain) Qty: 20 0RF Flomax 0.4 mg capsule 0.4 mg PO DAILY Qty: 30 0RF Miralax 17 gram/dose powder 17 g PO DAILY Qty: 510 0RF Rx Instructions: Take 1 scoop daily while taking pain medications. cefdinir 300 mg capsule 300 mg PO BID 5 Days Qty: 10 0RF ondansetron 8 mg tablet,disintegrating 8 mg PO .q6 PRN (Reason: nausea and vomiting) Qty: 14 0RF No Action aspirin 325 mg tablet 325 mg PO DAILY fluticasone propion-salmeterol [Advair Diskus] 250-50 mcg/dose blister with device 1 inh inhalation BID Qty: 60 11RF celecoxib 200 mg capsule 200 mg PO DAILY Qty: 90 3RF Hold Instructions: Resume on 06/22/21. furosemide 40 mg tablet 40 mg PO DAILY Qty: 90 3RF hydrocodone-acetaminophen 5-325 mg tablet 1 tab PO BID PRN (Reason: pain) 30 Days Qty: 60 0RF potassium chloride 20 mEq tablet extended release 20 meq PO DAILY Qty: 90 11RF albuterol sulfate [Ventolin HFA] 90 mcg/actuation HFA aerosol inhaler 2 puff inhalation Q6H PRN (Reason: shortness of breath or wheezing) Qty: 8.5 11RF spironolactone 25 mg tablet 25 mg PO DAILY Qty: 30 11RF prednisone 10 mg tablet 10 mg PO DAILY Qty: 20 0RF Rx Instructions: 3 daily x 3 days; 2 tabs x 3 days; 1 tabs x 3 days. lisinopril 20 mg tablet 20 mg PO BID Qty: 180 3RF ketoconazole 2 % cream 1 applic topical TID Qty: 30 11RF amoxicillin-pot clavulanate [Augmentin] 500-125 mg tablet 1 tab PO TID 7 Days Qty: 21 0RF prednisone 10 mg tablet 10 mg PO DAILY Qty: 5 0RF primidone 50 mg tablet See Rx Instructions .ROUTE .COMPLEX Qty: 180 3RF Dose Instruction: TAKE 1 TABLET BY MOUTH TWICE A DAY Rx Instructions: TAKE 1 TABLET BY MOUTH TWICE A DAY lovastatin 40 mg tablet See Rx Instructions .ROUTE .COMPLEX Qty: 90 3RF Dose Instruction: TAKE 1 TABLET BY MOUTH EVERY DAY Rx Instructions: TAKE 1 TABLET BY MOUTH EVERY DAY metoprolol tartrate 50 mg tablet See Rx Instructions .ROUTE .COMPLEX Qty: 90 7RF Dose Instruction: TAKE 1/2 TABLET BY MOUTH TWICE DAILY Rx Instructions: TAKE 1/2 TABLET BY MOUTH TWICE DAILY Discharge Orders: Discharge ED (Routine); Ordered 01/29/24 Ordered By: Kimberly Terry Referrals: Fabiano Woo MD [Primary Care Provider] - (Call for appointment with urology. If fever (temp >100.4) develops return to the emergency room immediately, as this is an emergency. Take nausea medication prior to taking pain medications. You have been screened and evaluated and felt safe for discharge. Health conditions do change or evolve sometimes and as such it is important that you follow up with your Primary Doctor to be re checked, 3-5 days is a general good time frame for follow up. You are always welcome to return to the ED for re assessment if your symptoms are worsening or you have new concerns ) Discharge Diet: Advance as tolerated Discharge Activity: Increase activity as tolerated Patient Instructions: Kidney Stones (ED), Opioid Safety, Pain Management Coding Level of Care Code ED Public Health Administrator for Ada Ponce
[2024-01-29 18:56] LABS: Bilirubin Urine Neg (Negative); Blood Urine 2+ (Negative); Glucose Urine UA Norm (Normal); Ketones Urine 1+ (Negative); Leukocyte Esterase Urine Negative (Negative); Nitrate Urine Negative (Negative); Protein Urine Neg (Negative); Urine Appearance Clear (CLEAR); Urine Color Yellow (Yellow); Urobilinogen Urine Norm (Negative); pH Urine 5 (5-7)
[2024-01-29 18:58] LABS: Hyaline Casts Urine 0-4 /lpf; RBC Urine 0-4 /hpf (0-2); Squamous Epithelial Cell Urine RARE /hpf (0-5); WBC Urine RARE /hpf (0-5)
[2024-01-29 18:59] LABS: Add Urine Culture? No
[2024-01-29] MEDS: ondansetron 2 mg/ML SDV 2 mL 4 MG IVP ×2 (19:14→20:22)
[2024-01-29] MEDS: tamsulosin 0.4 mg Capsule 0.400000000000000022 MG PO (19:14)
[2024-01-29] MEDS: HYDROmorphone 1 mg/mL INJ 1 mL IVP ×2 (19:14→20:22)
[2024-01-29] MEDS: cefTRIAXone 1,000 MG in sodium chloride 0.9% (plus) 50 ML 100 MG IV (19:15)
[2024-01-29] MEDS: sodium chloride 0.9% 1,000 ML 999 ML IV (19:15)
[2024-01-29] MEDS: HYDROcodone-acetaminophen 5-325 mg Tablet 4 TAB PO (20:33)
== END 2024-01-29 20:47 | disposition home or self-care (01) ==
PROVIDERS: Emergency Provider Emergency Medicine; PCP Family Medicine
DX: N13.2 Hydronephrosis with renal and ureteral calculous obstruction (principal); Z79.82 Long term (current) use of aspirin; Z87.891 Personal history of nicotine dependence; J44.9 Chronic obstructive pulmonary disease, unspecified; Z85.46 Personal history of malignant neoplasm of prostate; Z87.442 Personal history of urinary calculi; I11.0 Hypertensive heart disease with heart failure; I50.30 Unspecified diastolic (congestive) heart failure; E78.5 Hyperlipidemia, unspecified
CPT/HCPCS: 36415; 74176; 80053; 81001; 85025; 96365; 96375; 96376; 99285; J0696; J1170; J2405; J7030

== ENCOUNTER 2024-01-30 23:47 | Emergency (ER) | payer MEDICARE, BC, SELFPAY ==
[2024-01-30 23:49] VITALS: BP 177/87; PULSE 80; RESP 20; TEMP 36.7; O2SAT 90
--- NOTE | 2024-01-30 23:53 | XRR_ITS ---
PROCEDURE INFORMATION: Exam: XR Chest Exam date and time: 01/31/2024 12:03 AM Age: 88 years old Clinical indication: Dyspnea TECHNIQUE: Imaging protocol: Radiologic exam of the chest. Views: 1 view. COMPARISON: CT chest w con* [id number] 12/29/2022 12:49 PM FINDINGS: Lungs: [id number] interstitial coarsening likely chronic. Pleural spaces: No pleural effusion or pneumothorax. Heart/Mediastinum: Patient rotation limits evaluation. The cardiomediastinal silhouette is suboptimally evaluated. Probable [id number] cardiomegaly. Vasculature: Atherosclerotic calcifications of the aorta are noted. Bones/joints: No acute osseous abnormalities are seen. XR/XR chest 1V portable [id number] IMPRESSION: 1. Ubsj-cf-vwewoqck interstitial coarsening likely chronic. Atypical infection or pulmonary edema could also cause this appearance. 2. No other evidence of acute cardiopulmonary disease.
--- NOTE | 2024-01-30 23:54 | ED_ITS ---
HPI - Abdominal Pain 2 General: Chief Complaint: Urogenital-Male Stated Complaint: kidney stones Time Seen by Provider: 01/30/24 23:53 History of Present Illness: Patient presents to the ER with worsening kidney stone pain. Patient says the pain is mainly on the right flank region. Patient was seen here yesterday and diagnosed with bilateral kidney stones. There is a 4 mm obstructing 1 on the right with mild to moderate hydro and 11 mm 1 on the left nonobstructing patient says he went down to [place] yesterday and saw nurse practitioner at the urologist office and they were said he was going to try to wait 2 weeks before they did anything. Patient said his pain got worse tonight to the point that he had to call EMS. Patient does not normally wear oxygen at home. Patient does have a diagnosis of COPD. When EMS arrived there they said he was oxygen saturation was in the 80s and they put him on 4 L to bring him up to the 90s. EMS gave the patient 15 mg Toradol IV and now patient is almost pain-free. Review of Systems 2 General: Reports: 10 or more systems reviewed and unremarkable except in HPI and below PFSH ED 2 PFSH: Medical History COPD (chronic obstructive pulmonary disease) Cancer of skin of left ear History of prostate cancer Radical prostatectomy in 2000. Very low PSAs. Stopped surveillance 2020 Hx of back injury Hx of cataract Urolithiasis Nonobstructing left renal calculus. Later engaged the ureter and required endoscopic laser lithotripsy. 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 Diastolic heart failure HLD (hyperlipidemia) HTN (hypertension) Surgical History Hx of foot surgery Hx of hand surgery S/P ureteral stent placement H/O prostatectomy H/O lithotripsy H/O hernia repair Social History Smoking and tobacco/nicotine status: never used tobacco/nicotine Quit status (tobacco/nicotine): has quit using Year quit tobacco: 2019 Alcohol intake: never Substance/Drug Use: never Caregiver/support person: Yes Lives independently: Yes Household members: spouse Housing: House Marital status: Current occupational status: retired Physical Exam 2 Const: COMMON NORMALS: no acute distress, average body habitus, patient oriented x3, no limitations, healthy appearing, alert and well nourished HENMT: COMMON NORMALS: normocephalic, atraumatic, hearing grossly normal bilaterally, external ears normal, Normal external nose present, moist oral mucous membranes and oropharynx normal HEAD & SCALP: normocephalic and atraumatic NOSE: Normal external nose present EXTERNAL EAR: Yes external ears normal Neck/C-Spine: COMMON NORMALS: no JVD Chest: COMMONS NORMALS: normal inspection of the chest and normal palpation of entire chest wall Resp: COMMON NORMALS: normal respiratory effort, No retractions, No use of accessory muscles and clear to auscultation bilaterally (Decreased breath sounds bilaterally) AUSCULTATION: clear to auscultation bilaterally (Decreased breath sounds bilaterally) Cardio: COMMON NORMALS: no JVD, regular rate, regular rhythm, S1 normal heart sound present, S2 normal heart sound present, No gallops present (Cardio), No clicks present (Cardio), No murmurs present (Cardio) and No rub (Cardio) R ATE: regular rate RHYTHM: regular rhythm HEART SOUNDS: S1 normal heart sound present and S2 normal heart sound present GI: COMMON NORMALS: Normal to inspection, nondistended, normoactive bowel sounds present, Soft to palpation, non-tender, No hepatosplenomegaly present and no masses PALPATION: Yes Soft to palpation and Yes No hepatosplenomegaly present Neuro: COMMON NORMALS: patient oriented x3 SENSORIUM/ORIENTATION: Yes alert Course 2 Vital Signs: Vital signs: Vital Signs Temperature 98.1 F 01/30/24 23:49 Pulse Rate 67 01/31/24 01:08 Respiratory Rate 18 01/31/24 01:08 Blood Pressure 156/76 01/31/24 01:08 Pulse Oximetry 85 L 01/31/24 01:08 Oxygen Delivery Me thod Room Air 01/31/24 01:08 Oxygen Flow Rate 2 01/31/24 00:31 MDM - Abdominal Pain Medical Decision Making Patient pain was controlled 50 mg Toradol IV, lab work was obtained, as well as chest x-ray, dysuria showed some mild pulmonary edema type pattern his BNP was over 2000, he is already currently on Lasix, BUN/creatinine mildly elevated from previous visit at 25 and 1.6, patient needing oxygen to keep his saturation open the 90s. Home oxygen eval was done which showed he probably needs 3 L to maintain his sat is he did drop down to 86% on room air. Patient will be given home oxygen, Toradol tablets, and told to follow-up with urology. Differential Diagnosis Likely calculus of kidney; Unlikely abdominal pain, acute appendicitis, constipation, diverticulitis, endometriosis, gastroenteritis, pancreatitis or small bowel obstruction Medical Records I reviewed the patient's medical records. Lab Data I reviewed the patient's lab results. 01/30/24 23:32 01/30/24 23:32 Labs/Radiology: Radiology Impressions Chest X-Ray 01/30/24 23:53 IMPRESSION: 1. [id number] interstitial coarsening likely chronic. Atypical infection or pulmonary edema could also cause this appearance. 2. No other evidence of acute cardiopulmonary disease. Laboratory Results WBC 11.23 10^3/uL (3.29-11.43) 01/30/24 23:32 RBC 4.05 10^6/uL (3.85-5.65) 01/30/24 23:32 Hgb 11.90 g/dL (11.27-16.99) 01/30/24 23:32 Hct 36.5 % (37-53) L 01/30/24 23:32 MCV 90.1 fl (82-101) 01/30/24 23: MCH 29.4 pg (27-33) 01/30/24 23: MCHC 32.6 g/dL (30-55) 01/30/24 23:32 RDW 13.4 % (12.1-15.1) 01/30/24 23:32 Plt Count 127 10^3/cmm (157-399) L 01/30/24 23:32 MPV 10.5 fL (7.4-10.4) H 01/30/24 23:32 Neut % (Auto) 72.8 % 01/30/24 23:32 Lymph % (Auto) 14.2 % 01/30/24 23:32 [place] % (Auto) 10.7 % 01/30/24 23:32 Eos % (Auto) 1.7 % 01/30/24 23:32 Baso % (Auto) 0.3 % 01/30/24 23:32 Neut # (Auto) 8.18 10^3/uL (1.8-7.7) H 01/30/24 23:32 Lymph # (Auto) 1.6 10^3/uL (0.8-4.8) 01/30/24 23:32 [place] # (Auto) 1.2 10^3/uL (0.2-0.9) H 01/30/24 23:32 Eos # (Auto) 0.2 10^3/uL (0.0-0.8) 01/30/24 23:32 Baso # (Auto) 0.0 10^3/uL (0.0-0.1) 01/30/24 23:32 Nucleated RBC % (auto) 0 % 01/30/24 23:32 Nucleated RBCs # 0.0 /100WBC 01/30/24 23:32 Sodium 142 mmol/L (136-145) 01/30/24 23:32 Potassium 4.5 mmol/L (3.5-5.1) 01/30/24 23:32 Chloride 105 mmol/L (98-107) 01/30/24 23:32 Carbon Dioxide 27 mmol/L (22-29) 01/30/24 23:32 Anion Gap 14.5 (5-19) 01/30/24 23:32 BUN 25 mg/dL (8-23) H 01/30/24 23:32 Creatinine 1.6 mg/dL (0.7-1.2) H 01/30/24 23:32 GFR Calculation Not Reportable 01/30/24 23:32 Glucose 133 mg/dL (65-115) H 01/30/24 23:32 Calculated Osmolality 300 mOsm/kg (285-295) H 01/30/24 23:32 Calcium 8.9 mg/dL (8.5-10.5) 01/30/24 23:32 Total Bilirubin 0.3 mg/dL (0.15-1.2) 01/30/24 23:32 AST 21 U/L (0-40) 01/30/24 23:32 ALT 15 U/L (0-41) 01/30/24 23:32 Alkaline Phosphatase 133 U/L (40-130) H 01/30/24 23:32 NT-Pro-B Natriuret Pep 2321 pg/mL (0-450) H 01/30/24 23:32 Total Protein 6.9 g/dL (6.6-8.7) 01/30/24 23:32 Albumin 4.0 g/dL (3.5-5.2) 01/30/24 23:32 Globulin 2.9 g/dL (1.3-4.6) 01/30/24 23:32 All radiology interpretation(s) finalized by discharge Discharge Plan Discharge Patient Disposition: Home Clinical Impression: Bilateral kidney stones, Acute respiratory failure with hypoxia, Congestive heart failure Condition: Stable Prescriptions: New ketorolac 10 mg tablet 10 mg PO Q8H PRN (Reason: pain) 5 Days Qty: 14 0RF No Action aspirin 325 mg tablet 325 mg PO DAILY fluticasone propion-salmeterol [Advair Diskus] 250-50 mcg/dose blister with device 1 inh inhalation BID Qty: 60 11RF celecoxib 200 mg capsule 200 mg PO DAILY Qty: 90 3RF Hold Instructions: Resume on 03/29/21. furosemide 40 mg tablet 40 mg PO DAILY Qty: 90 3RF hydrocodone-acetaminophen 5-325 mg tablet 1 tab PO BID PRN (Reason: pain) 30 Days Qty: 60 0RF potassium chloride 20 mEq tablet extended release 20 meq PO DAILY Qty: 90 11RF albuterol sulfate [Ventolin HFA] 90 mcg/actuation HFA aerosol inhaler 2 puff inhalation Q6H PRN (Reason: shortness of breath or wheezing) Qty: 8.5 11RF spironolactone 25 mg tablet 25 mg PO DAILY Qty: 30 11RF prednisone 10 mg tablet 10 mg PO DAILY Qty: 20 0RF Rx Instructions: 3 daily x 3 days; 2 tabs x 3 days; 1 tabs x 3 days. lisinopril 20 mg tablet 20 mg PO BID Qty: 180 3RF ketoconazole 2 % cream 1 applic topical TID Qty: 30 11RF amoxicillin-pot clavulanate [Augmentin] 500-125 mg tablet 1 tab PO TID 7 Days Qty: 21 0RF prednisone 10 mg tablet 10 mg PO DAILY Qty: 5 0RF primidone 50 mg tablet See Rx Instructions .ROUTE .COMPLEX Qty: 180 3RF Dose Instruction: TAKE 1 TABLET BY MOUTH TWICE A DAY Rx Instructions: TAKE 1 TABLET BY MOUTH TWICE A DAY lovastatin 40 mg tablet See Rx Instructions .ROUTE .COMPLEX Qty: 90 3RF Dose Instruction: TAKE 1 TABLET BY MOUTH EVERY DAY Rx Instructions: TAKE 1 TABLET BY MOUTH EVERY DAY metoprolol tartrate 50 mg tablet See Rx Instructions .ROUTE .COMPLEX Qty: 90 7RF Dose Instruction: TAKE 1/2 TABLET BY MOUTH TWICE DAILY Rx Instructions: TAKE 1/2 TABLET BY MOUTH TWICE DAILY hydrocodone-acetaminophen 5-325 mg tablet 1 tab PO Q6H PRN (Reason: pain) Qty: 20 0RF Flomax 0.4 mg capsule 0.4 mg PO DAILY Qty: 30 0RF Miralax 17 gram/dose powder 17 g PO DAILY Qty: 510 0RF Rx Instructions: Take 1 scoop daily while taking pain medications. cefdinir 300 mg capsule 300 mg PO BID 5 Days Qty: 10 0RF ondansetron 8 mg tablet,disintegrating 8 mg PO .q6 PRN (Reason: nausea and vomiting) Qty: 14 0RF Discharge Orders: Discharge ED (Routine); Ordered 01/31/24 Ordered By: Ed Sherman Other Ambulatory Orders: DME: Oxygen (Order) Location: None Selected Ordered By: Ed Sherman Referrals: Fabiano Woo MD [Primary Care Provider] - 1 week Patient Instructions: Congestive Heart Failure, Kidney Stones, How to Strain Your Urine (ED) Activity Restrictions/Additional Instructions: Your lab work and x-ray showed you may have some fluid in your lungs. This may be why you are having a harder time breathing than normal. Please double up on your Lasix for the next 3 days and therefore take 2 Lasix a day for the next 3 days. Please use your home oxygen at 3 L per nasal cannula at all times as prescribed. Please call the urologist in the morning and see about getting an appointment sooner than later. You have been provided with Toradol for pain medicine this is what you were given in the ER. It sometimes works better than the hydrocodone and is safe to take with the hydrocodone if you need both. Coding Level of Care Code ED Rehab Physician for Ada Ponce
[2024-01-31] VITALS (7 sets, daily range): BP systolic 151–172; BP diastolic 70–96; PULSE 61–71; RESP 18; O2SAT 85–96
[2024-01-31 00:01] LABS: Basophils % 0.3 %; Eosinophils # 0.2 10^3/uL (0.0-0.8); Eosinophils % 1.7 %; Hematocrit 36.5 % (37-53); Lymphocytes # 1.6 10^3/uL (0.8-4.8); Lymphocytes % 14.2 %; Mean Corpuscular HGB Conc 32.6 g/dL (30-55); Mean Corpuscular Hemoglobin 29.4 pg (27-33); Mean Corpuscular Volume 90.1 fl (82-101); Mean Platelet Volume 10.5 fL (7.4-10.4); Monocytes # 1.2 10^3/uL (0.2-0.9); Monocytes % 10.7 %; Neutrophils # 8.18 10^3/uL (1.8-7.7); Neutrophils % 72.8 %; Nucleated Red Blood Cells % 0 %; Platelet Count 127 10^3/cmm (157-399); Red Blood Count 4.05 10^6/uL (3.85-5.65); Red Cell Distribution Width 13.4 % (12.1-15.1); White Blood Count 11.23 10^3/uL (3.29-11.43)
[2024-01-31 00:22] LABS: Alanine Aminotransferase 15 U/L (0-41); Alkaline Phosphatase 133 U/L (40-130); Anion Gap 14.5 (5-19); Aspartate Amino Transferase 21 U/L (0-40); Blood Urea Nitrogen 25 mg/dL (8-23); Calcium 8.9 mg/dL (8.5-10.5); Carbon Dioxide 27 mmol/L (22-29); Chloride 105 mmol/L (98-107); Globulin 2.9 g/dL (1.3-4.6); Glucose 133 mg/dL (65-115); Osmolality Calculated 300 mOsm/kg (285-295); Potassium 4.5 mmol/L (3.5-5.1); Sodium 142 mmol/L (136-145); Total Bilirubin 0.3 mg/dL (0.15-1.2); Total Protein 6.9 g/dL (6.6-8.7)
[2024-01-31 00:30] LABS: NT Pro B Type Natriuretic Pept 2321 pg/mL (0-450)
--- NOTE | 2024-01-31 01:09 | PC.NURSE ---
Oxygen placed on room air at RT request for home O2 evaluation.
== END 2024-01-31 03:03 | disposition home or self-care (01) ==
PROVIDERS: Emergency Provider Emergency Medicine; PCP Family Medicine
DX: N20.0 Calculus of kidney (principal); J96.01 Acute respiratory failure with hypoxia; I11.0 Hypertensive heart disease with heart failure; I50.9 Heart failure, unspecified; Z79.82 Long term (current) use of aspirin; Z87.891 Personal history of nicotine dependence; J44.9 Chronic obstructive pulmonary disease, unspecified; Z85.46 Personal history of malignant neoplasm of prostate; I50.30 Unspecified diastolic (congestive) heart failure; E78.5 Hyperlipidemia, unspecified
CPT/HCPCS: 71045; 80053; 83880; 85025; 99284

== ENCOUNTER → 2024-06-10 11:04 | Outpatient (BNVA) | payer MEDICARE, BC, SELFPAY | PROVIDERS: PCP Family Medicine; Visit Provider Family Medicine | DX: D72.819 Decreased white blood cell count, unspecified (principal); I11.0 Hypertensive heart disease with heart failure; I50.30 Unspecified diastolic (congestive) heart failure; J44.9 Chronic obstructive pulmonary disease, unspecified; Z85.46 Personal history of malignant neoplasm of prostate | CPT/HCPCS: 80053; 83880; 84153; 85025 ==